=== PATIENT | female | born 1965 | race Two or more races ===

== ENCOUNTER 2016-09-19 22:28 | Inpatient (IN) | payer MEDICAID ==
[~2016-09-19] VITALS: Ht 165.1 cm; Wt 81.9 kg
[~2016-09-19 22:28] MED LIST: Atorvastatin Calcium PO; DOXY-216 PO; FURO20TA PO; Insulin Detemir SC; LIS10T PO
[2016-09-19 23:02] LABS: Basophils # (auto) 0.2 uL; Eosinophils # (auto) 0.1 uL; Eosinophils % (auto) 1.7 % (0.0-7.0); Hematocrit 33.8 % (36.0-46.0); Hemoglobin 11.5 g/dL (12.2-16.2); Lymphocytes # (auto) 1.5 uL; Lymphocytes % (auto) 19.7 % (10.0-50.0); Mean Corpuscular Hemoglobin 28.3 pg (28.0-32.0); Mean Corpuscular Hgb Conc. 33.9 g/dL (32.0-36.0); Mean Corpuscular Volume 83.3 fL (80.0-100.0); Mean Platelet Volume 7.4 fL (7.4-10.4); Monocytes # (auto) 0.6 uL; Monocytes % (auto) 8.1 % (0.0-12.0); Neutrophils # (auto) 5.4 uL; Neutrophils % (auto) 68.5 % (37.0-80.0); Platelet Count (auto) 318 10^3/uL (140-450); Red Cell Distribution Width 14.6 % (11.6-16.0); White Blood Cell 7.9 10^3/uL (4.4-10.8)
[2016-09-19 23:17] LABS: INR 1.05 (0.9-1.15); Partial Thromboplastin Time 28.5 sec (22.64-33.71); Prothrombin Time 10.8 sec (9.37-12.3)
[2016-09-19 23:23] LABS: Albumin 2.9 g/dL (3.4-5.0); Alkaline Phosphatase 132 U/L (45-117); Anion Gap 14 (5-15); Aspartate Aminotransferase 11 U/L (15-37); B-Type Natriuretic Peptide 20.08 pg/mL (0-100); BUN/Creatinine Ratio 19.1; Bilirubin, Total 0.3 mg/dL (0.2-1.0); Blood Urea Nitrogen 17 mg/dL (7-18); Calcium 8.7 mg/dL (8.5-10.1); Carbon Dioxide 25 mmol/L (21-32); Chloride 102 mmol/L (98-107); GFR African American 86 mL/min; GFR Non-African American 71 mL/min; Glucose 212 mg/dL (74-106); Magnesium 2.2 mg/dL (1.6-2.6); Sodium 141 mmol/L (136-145); Total Protein 7.2 g/dL (6.4-8.2)
[2016-09-19 23:26] LABS: Temperature: 22.4 C (20.0-25.0)
[2016-09-20] VITALS (7 sets, daily range): BP systolic 111–126; BP diastolic 58–70
[2016-09-20] MEDS ORDERED: MORPHINE SULFATE 4 MG/ML SYRG IM ONE (02:45)
[2016-09-20] MEDS ORDERED: cefTRIAXone 1GM/50ML D5W 50 ML IV ONE (02:45)
[2016-09-20] MEDS ORDERED: ONDANSETRON HCL 4 MG/2 ML VIAL IV ONE (02:45)
[2016-09-20] MEDS ORDERED: VANCOMYCIN 1GM/250ML D5W 250 ML IV ONE (02:45)
[2016-09-20] MEDS ORDERED: MORPHINE SULFATE 4 MG/ML SYRG ONE (03:21)
[2016-09-20] MEDS ORDERED: MORPHINE SULFATE 4 MG/ML SYRG IV ONE (03:45)
[2016-09-20] MEDS ORDERED: PROMETHAZINE HCL 25 MG/ML 1ML IV PRN (07:00)
[2016-09-20] MEDS ORDERED: OSELTAMIVIR 75 MG CAP PO ONE (07:00)
[2016-09-20] MEDS ORDERED: DEXTROSE (50%) 50ML SYRG IV PRN (07:00)
[2016-09-20] MEDS ORDERED: NITROGLYCERIN 0.4 MG SL TAB SL PRN (07:00)
[2016-09-20] MEDS ORDERED: TEMAZEPAM 15 MG CAP PO PRN (07:00)
[2016-09-20] MEDS ORDERED: ALBUTEROL SULF 2.5 MG/0.5ML(0.5%) NEB SOLN NEB PRN (07:00)
[2016-09-20] MEDS ORDERED: LACTULOSE 20Gm/30ML SOLN PO PRN (07:00)
[2016-09-20] MEDS ORDERED: ACETAMINOPHEN 500 MG TAB PO PRN (07:00)
[2016-09-20] MEDS ORDERED: HYDROcodone-ACET 5/325MG TAB PO PRN (07:00)
[2016-09-20] MEDS ORDERED: LORazepam 0.5 MG TAB PO PRN (07:00)
[2016-09-20] MEDS: ACCU-CHEK COMFORT CURVE STRIP VI SCH ×4 (07:49→22:20)
[2016-09-20] MEDS: InsuLIN REG 1unit/0.01ml Soln (100units/ml) SC SCH ×4 (07:50→22:21)
[2016-09-20] MEDS ORDERED: LEVOFLOXACIN 500MG 100 ML IV SCH (10:00)
[2016-09-20] MEDS: OSELTAMIVIR 75 MG CAP PO SCH ×2 (11:11→21:28)
[2016-09-20] MEDS: ENOXAPARIN SOD 40 MG/0.4 ML SYRINGE SC SCH (11:11)
[2016-09-20] MEDS: ASPirin 81 mg TAB PO SCH (11:11)
[2016-09-20] MEDS: FUROSEMIDE 20 MG TAB PO SCH (11:12)
[2016-09-20] MEDS: METOPROLOL TARTRATE 25 MG TAB PO SCH ×2 (11:12→22:00)
[2016-09-20] MEDS: LISINOPRIL 10 MG TAB PO SCH (11:12)
[2016-09-20] MEDS: NITROGLYCERIN 0.2MG/HR TOPICAL PATCH TD SCH (11:14)
[2016-09-20] MEDS: ALBUTEROL SULF 2.5 MG/0.5ML(0.5%) NEB SOLN NEB SCH ×2 (11:49→19:51)
[2016-09-20] MEDS: CLINDAMYCIN 600MG IV 50 ML IV SCH ×2 (14:29→22:22)
[2016-09-20] MEDS: SODIUM CHLOR 0.9% PF (SALINE LOCK) 10ML VIAL IV SCH ×2 (14:30→22:17)
[2016-09-20] MEDS: ATORVASTATIN 20 MG TAB PO SCH (21:27)
[2016-09-20] MEDS ORDERED: INSULIN DETEMIR SC SCH (22:00)
[2016-09-20] MEDS ORDERED: ATORVASTATIN CALCIUM LIPITOR PO SCH (22:00)
[2016-09-20] MEDS: INSULIN DETEMIR(LEVEMIR) 1unit/0.01ml Soln (100units/ml) SC SCH (22:20)
[2016-09-21] VITALS (7 sets, daily range): BP systolic 104–149; BP diastolic 57–81
[2016-09-21] MEDS: ALBUTEROL SULF 2.5 MG/0.5ML(0.5%) NEB SOLN NEB SCH ×4 (00:44→19:02)
[2016-09-21] MEDS: SODIUM CHLOR 0.9% PF (SALINE LOCK) 10ML VIAL IV SCH ×3 (04:58→22:24)
[2016-09-21] MEDS: CLINDAMYCIN 600MG IV 50 ML IV SCH ×3 (05:14→22:24)
[2016-09-21] MEDS: ACCU-CHEK COMFORT CURVE STRIP VI SCH ×4 (05:14→22:00)
[2016-09-21] MEDS: InsuLIN REG 1unit/0.01ml Soln (100units/ml) SC SCH ×4 (05:33→22:00)
[2016-09-21 05:41] LABS: Basophils # (auto) 0 uL; Basophils % (auto) 0.7 % (0.0-2.0); Eosinophils # (auto) 0.1 uL; Eosinophils % (auto) 1.7 % (0.0-7.0); Hematocrit 30.1 % (36.0-46.0); Lymphocytes # (auto) 1.8 uL; Lymphocytes % (auto) 32.6 % (10.0-50.0); Mean Corpuscular Hemoglobin 28.1 pg (28.0-32.0); Mean Corpuscular Hgb Conc. 33.1 g/dL (32.0-36.0); Mean Corpuscular Volume 84.7 fL (80.0-100.0); Mean Platelet Volume 7.4 fL (7.4-10.4); Monocytes # (auto) 0.5 uL; Monocytes % (auto) 8.9 % (0.0-12.0); Neutrophils % (auto) 56.1 % (37.0-80.0); Platelet Count (auto) 299 10^3/uL (140-450); Red Cell Distribution Width 14.5 % (11.6-16.0); White Blood Cell 5.4 10^3/uL (4.4-10.8)
[2016-09-21 06:18] LABS: Albumin 2.5 g/dL (3.4-5.0); BUN/Creatinine Ratio 21.4; Bilirubin, Total 0.2 mg/dL (0.2-1.0); Calcium 8.3 mg/dL (8.5-10.1); Total Protein 6.4 g/dL (6.4-8.2)
[2016-09-21] MEDS: cefTRIAXone 1GM/50ML D5W 50 ML IV SCH (09:16)
[2016-09-21] MEDS: OSELTAMIVIR 75 MG CAP PO SCH ×2 (09:17→22:25)
[2016-09-21] MEDS: LISINOPRIL 10 MG TAB PO SCH (09:17)
[2016-09-21] MEDS: FUROSEMIDE 20 MG TAB PO SCH (09:17)
[2016-09-21] MEDS: ENOXAPARIN SOD 40 MG/0.4 ML SYRINGE SC SCH (09:17)
[2016-09-21] MEDS: NITROGLYCERIN 0.2MG/HR TOPICAL PATCH TD SCH (09:18)
[2016-09-21] MEDS: METOPROLOL TARTRATE 25 MG TAB PO SCH ×2 (09:18→22:25)
[2016-09-21] MEDS: ASPirin 81 mg TAB PO SCH (09:18)
[2016-09-21] MEDS: PSEUDOEPHEDRINE HCL 30 MG TAB PO PRN ×2 (14:25→18:18)
[2016-09-21] MEDS: HYDROmorphone HCL 2 MG/ML VL IV PRN (20:29)
[2016-09-21] MEDS: INSULIN DETEMIR(LEVEMIR) 1unit/0.01ml Soln (100units/ml) SC SCH (22:00)
[2016-09-21] MEDS: ATORVASTATIN 20 MG TAB PO SCH (22:24)
[2016-09-22] VITALS (7 sets, daily range): BP systolic 103–128; BP diastolic 57–73
[2016-09-22] MEDS: ALBUTEROL SULF 2.5 MG/0.5ML(0.5%) NEB SOLN NEB SCH ×4 (00:55→20:27)
[2016-09-22] MEDS: PSEUDOEPHEDRINE HCL 30 MG TAB PO PRN (04:22)
[2016-09-22] MEDS: HYDROmorphone HCL 2 MG/ML VL IV PRN ×2 (04:22→19:36)
[2016-09-22 05:45] LABS: Basophils # (auto) 0.1 uL; Basophils % (auto) 0.5 % (0.0-2.0); Eosinophils # (auto) 0.1 uL; Hematocrit 31.8 % (36.0-46.0); Hemoglobin 10.6 g/dL (12.2-16.2); Lymphocytes # (auto) 2.5 uL; Lymphocytes % (auto) 23.7 % (10.0-50.0); Mean Corpuscular Hgb Conc. 33.4 g/dL (32.0-36.0); Mean Platelet Volume 7.5 fL (7.4-10.4); Monocytes # (auto) 0.5 uL; Monocytes % (auto) 4.4 % (0.0-12.0); Neutrophils # (auto) 7.5 uL; Neutrophils % (auto) 70.4 % (37.0-80.0); Platelet Count (auto) 315 10^3/uL (140-450); Red Cell Distribution Width 14.8 % (11.6-16.0); White Blood Cell 10.6 10^3/uL (4.4-10.8)
[2016-09-22 05:50] LABS: INR 1.08 (0.9-1.15); Prothrombin Time 11.1 sec (9.37-12.3)
[2016-09-22] MEDS: CLINDAMYCIN 600MG IV 50 ML IV SCH ×3 (06:00→23:21)
[2016-09-22] MEDS: SODIUM CHLOR 0.9% PF (SALINE LOCK) 10ML VIAL IV SCH ×3 (06:01→23:20)
[2016-09-22 06:02] LABS: BUN/Creatinine Ratio 27.8; Calcium 8.5 mg/dL (8.5-10.1); Magnesium 2.4 mg/dL (1.6-2.6); Potassium 4.1 mmol/L (3.5-5.1)
[2016-09-22] MEDS: ACCU-CHEK COMFORT CURVE STRIP VI SCH ×4 (06:50→23:43)
[2016-09-22] MEDS: InsuLIN REG 1unit/0.01ml Soln (100units/ml) SC SCH ×4 (06:55→22:00)
[2016-09-22] MEDS: cefTRIAXone 1GM/50ML D5W 50 ML IV SCH (09:00)
[2016-09-22] MEDS ORDERED: ceFAZolin 1GM VL ONE (10:23)
[2016-09-22] MEDS ORDERED: fentaNYL CITRATE 100 MCG/2 ML VL ONE (10:26)
[2016-09-22] MEDS ORDERED: MIDAZOLAM HCL 1MG/1ML-2 ML VIAL ONE (10:27)
[2016-09-22] MEDS ORDERED: PROPOFOL 10 MG/ML 20 ML IV ONE (10:27)
[2016-09-22] MEDS ORDERED: ONDANSETRON HCL 4 MG/2 ML VIAL IV ONE (10:45)
[2016-09-22] MEDS ORDERED: ePHEDrine SULFATE 50 MG/ML AMP IV PRN (10:45)
[2016-09-22] MEDS ORDERED: MIDAZOLAM HCL 1MG/1ML-2 ML VIAL IV PRN (10:45)
[2016-09-22] MEDS ORDERED: HYDROmorphone HCL 2 MG/ML VL IV PRN (10:45)
[2016-09-22] MEDS ORDERED: ACCU-CHEK COMFORT CURVE STRIP VI ONE (10:45)
[2016-09-22] MEDS ORDERED: LABETALOL HCL 5 MG/ML 4ML SYRINGE IV PRN (10:45)
[2016-09-22] MEDS ORDERED: hydrALAZINE HCL 20 MG/ML VL IV PRN (10:45)
[2016-09-22] MEDS ORDERED: fentaNYL CITRATE 100 MCG/2 ML VL IV ONE (11:00)
[2016-09-22] MEDS: ENOXAPARIN SOD 40 MG/0.4 ML SYRINGE SC SCH (12:23)
[2016-09-22] MEDS: ASPirin 81 mg TAB PO SCH (12:23)
[2016-09-22] MEDS: LISINOPRIL 10 MG TAB PO SCH (12:24)
[2016-09-22] MEDS: METOPROLOL TARTRATE 25 MG TAB PO SCH ×2 (12:24→23:19)
[2016-09-22] MEDS: FUROSEMIDE 20 MG TAB PO SCH (12:24)
[2016-09-22] MEDS: ATORVASTATIN 20 MG TAB PO SCH (23:20)
[2016-09-22] MEDS: INSULIN DETEMIR(LEVEMIR) 1unit/0.01ml Soln (100units/ml) SC SCH (23:42)
[2016-09-23] VITALS (7 sets, daily range): BP systolic 112–142; BP diastolic 61–78
[2016-09-23] MEDS: ALBUTEROL SULF 2.5 MG/0.5ML(0.5%) NEB SOLN NEB SCH ×4 (00:26→18:32)
[2016-09-23] MEDS: SODIUM CHLOR 0.9% PF (SALINE LOCK) 10ML VIAL IV SCH ×3 (05:48→22:17)
[2016-09-23] MEDS: CLINDAMYCIN 600MG IV 50 ML IV SCH ×3 (05:48→22:17)
[2016-09-23 05:58] LABS: Basophils # (auto) 0 uL; Basophils % (auto) 0.5 % (0.0-2.0); Eosinophils # (auto) 0.1 uL; Eosinophils % (auto) 1.6 % (0.0-7.0); Lymphocytes # (auto) 2.3 uL; Lymphocytes % (auto) 28.1 % (10.0-50.0); Mean Corpuscular Hemoglobin 28.1 pg (28.0-32.0); Mean Corpuscular Hgb Conc. 33.2 g/dL (32.0-36.0); Mean Corpuscular Volume 84.6 fL (80.0-100.0); Mean Platelet Volume 7.6 fL (7.4-10.4); Monocytes # (auto) 0.3 uL; Monocytes % (auto) 3.6 % (0.0-12.0); Neutrophils # (auto) 5.5 uL; Neutrophils % (auto) 66.2 % (37.0-80.0); Platelet Count (auto) 298 10^3/uL (140-450); Red Cell Distribution Width 14.9 % (11.6-16.0); White Blood Cell 8.4 10^3/uL (4.4-10.8)
[2016-09-23 06:15] LABS: BUN/Creatinine Ratio 27.8; Calcium 8.1 mg/dL (8.5-10.1); Potassium 4.5 mmol/L (3.5-5.1)
[2016-09-23] MEDS: InsuLIN REG 1unit/0.01ml Soln (100units/ml) SC SCH ×4 (06:46→22:30)
[2016-09-23] MEDS: ACCU-CHEK COMFORT CURVE STRIP VI SCH ×4 (06:46→22:19)
[2016-09-23] MEDS: cefTRIAXone 1GM/50ML D5W 50 ML IV SCH (08:55)
[2016-09-23] MEDS: ASPirin 81 mg TAB PO SCH (08:55)
[2016-09-23] MEDS: METOPROLOL TARTRATE 25 MG TAB PO SCH ×2 (08:55→22:18)
[2016-09-23] MEDS: ENOXAPARIN SOD 40 MG/0.4 ML SYRINGE SC SCH (08:56)
[2016-09-23] MEDS: LISINOPRIL 10 MG TAB PO SCH (08:56)
[2016-09-23] MEDS: FUROSEMIDE 20 MG TAB PO SCH (08:56)
[2016-09-23] MEDS: PSEUDOEPHEDRINE HCL 30 MG TAB PO PRN (09:06)
[2016-09-23] MEDS ORDERED: DOCUSATE SOD 100 MG CAP PO ONE (11:00)
[2016-09-23] MEDS: HYDROmorphone HCL 2 MG/ML VL IV PRN (12:47)
[2016-09-23] MEDS: DOCUSATE SOD 100 MG CAP PO SCH (22:00)
[2016-09-23] MEDS: ATORVASTATIN 20 MG TAB PO SCH (22:18)
[2016-09-23] MEDS: INSULIN DETEMIR(LEVEMIR) 1unit/0.01ml Soln (100units/ml) SC SCH (22:30)
[2016-09-24] MEDS: HYDROmorphone HCL 2 MG/ML VL IV PRN (01:03)
[2016-09-24 05:05] VITALS: BP 91/56
[2016-09-24] MEDS: CLINDAMYCIN 600MG IV 50 ML IV SCH ×2 (06:08→14:00)
[2016-09-24] MEDS: SODIUM CHLOR 0.9% PF (SALINE LOCK) 10ML VIAL IV SCH ×2 (06:08→14:00)
[2016-09-24] MEDS: ACCU-CHEK COMFORT CURVE STRIP VI SCH ×2 (06:25→11:30)
[2016-09-24] MEDS: InsuLIN REG 1unit/0.01ml Soln (100units/ml) SC SCH ×2 (06:25→11:30)
[2016-09-24 06:27] LABS: Hematocrit 30.4 % (36.0-46.0); Hemoglobin 10.3 g/dL (12.2-16.2)
[2016-09-24] MEDS: ALBUTEROL SULF 2.5 MG/0.5ML(0.5%) NEB SOLN NEB SCH ×2 (07:17→11:47)
[2016-09-24 08:00] VITALS: BP 104/60
[2016-09-24 09:00] VITALS: BP 104/60
[2016-09-24] MEDS: LISINOPRIL 10 MG TAB PO SCH (09:38)
[2016-09-24] MEDS: ENOXAPARIN SOD 40 MG/0.4 ML SYRINGE SC SCH (09:38)
[2016-09-24] MEDS: DOCUSATE SOD 100 MG CAP PO SCH (09:38)
[2016-09-24] MEDS: FUROSEMIDE 20 MG TAB PO SCH (09:39)
[2016-09-24] MEDS: ASPirin 81 mg TAB PO SCH (09:39)
[2016-09-24] MEDS: METOPROLOL TARTRATE 25 MG TAB PO SCH (09:39)
[2016-09-24] MEDS: cefTRIAXone 1GM/50ML D5W 50 ML IV SCH (09:49)
[2016-09-24 10:44] LABS: Temperature: 22.3 C (20.0-25.0)
[2016-09-24 11:42] VITALS: BP 137/68
[2016-09-24] MEDS ORDERED: CLIN1CAP4 PO (13:14)
[2016-09-24] MEDS ORDERED: SACC250C PO (13:15)
[2016-09-24 15:09] VITALS: BP 104/60
[2016-09-24 15:31] VITALS: BP 137/68
== END 2016-09-24 16:03 | disposition home health service (06) | DRG 312 ==
LOC: EDBD 22:28 → ER 22:28 → TELE-WESTW 22:29
PROVIDERS: ADMIT Internal Medicine; ATTEND Internal Medicine
PROC: 0HRMXK3 Replacement of Right Foot Skin with Nonautologous Tissue Substitute, Full Thickness, External Approach (ICD-10-PCS; 2016-09-22)
PROC: 0JBQ0ZZ Excision of Right Foot Subcutaneous Tissue and Fascia, Open Approach (ICD-10-PCS; principal; 2016-09-22 10:39)
DX: E11.69 Type 2 diabetes mellitus with other specified complication (principal); M86.9 Osteomyelitis, unspecified; N17.0 Acute kidney failure with tubular necrosis; E11.621 Type 2 diabetes mellitus with foot ulcer; E11.40 Type 2 diabetes mellitus with diabetic neuropathy, unspecified; L03.115 Cellulitis of right lower limb; J06.9 Acute upper respiratory infection, unspecified; E11.610 Type 2 diabetes mellitus with diabetic neuropathic arthropathy; F41.9 Anxiety disorder, unspecified; E78.5 Hyperlipidemia, unspecified; E66.9 Obesity, unspecified; R07.81 Pleurodynia; L97.529 Non-pressure chronic ulcer of other part of left foot with unspecified severity; J20.9 Acute bronchitis, unspecified; R10.9 Unspecified abdominal pain; D63.8 Anemia in other chronic diseases classified elsewhere; L97.519 Non-pressure chronic ulcer of other part of right foot with unspecified severity; I10 Essential (primary) hypertension; Z68.30 Body mass index [BMI] 30.0-30.9, adult; Z88.6 Allergy status to analgesic agent; Z79.899 Other long term (current) drug therapy; Z83.3 Family history of diabetes mellitus
CPT/HCPCS: 36415; 71010; 73700; 73718; 80048; 80053; 80061; 82270; 82550; 82607; 82746; 82962; 83036; 83540; 83550; 83735; 83880; 84443; 84484; 85014; 85018; 85025; 85379; 85610; 85652; 85730; 86141; 86850; 86900; 86901; 87070; 87075; 87086; 87205; 87400; 93005; 93926; 94640; 96365; 96367; 96375; G0434; J0690; J0696; J1815; J1956; J2250; J2405; J2704; J3490

== ENCOUNTER 2016-10-02 21:09 | Inpatient (IN) | payer MEDICAID ==
[~2016-10-02] VITALS: Ht 152.4 cm; Wt 55.4 kg
[~2016-10-02 21:09] MED LIST changes: +CLIN1CAP4 PO; -DOXY-216 PO; +SACC250C PO
[2016-10-02 22:25] LABS: Basophils # (auto) 0.1 uL; Basophils % (auto) 0.5 % (0.0-2.0); Eosinophils # (auto) 0.1 uL; Hematocrit 35.2 % (36.0-46.0); Hemoglobin 11.8 g/dL (12.2-16.2); Lymphocytes # (auto) 2.6 uL; Lymphocytes % (auto) 23.4 % (10.0-50.0); Mean Corpuscular Hemoglobin 28.1 pg (28.0-32.0); Mean Corpuscular Hgb Conc. 33.5 g/dL (32.0-36.0); Mean Corpuscular Volume 83.6 fL (80.0-100.0); Mean Platelet Volume 7.1 fL (7.4-10.4); Monocytes # (auto) 0.5 uL; Monocytes % (auto) 4.2 % (0.0-12.0); Neutrophils # (auto) 7.9 uL; Neutrophils % (auto) 70.9 % (37.0-80.0); Platelet Count (auto) 438 10^3/uL (140-450); Red Cell Distribution Width 14.6 % (11.6-16.0); White Blood Cell 11.1 10^3/uL (4.4-10.8)
[2016-10-02 22:35] LABS: Urine Bilirubin Negative (Negative); Urine Blood TRACE /uL (Negative); Urine Color Yellow (Yellow); Urine Glucose TRACE mg/dL (Normal); Urine Ketone Negative (Negative); Urine Nitrite Negative (Negative); Urine RBC 5 /hpf (0 - 4); Urine Squamous Epithelial Cell FEW /hpf (<5); Urine Urobilinogen Normal (Negative)
[2016-10-02 22:45] LABS: Albumin 3.1 g/dL (3.4-5.0); Bilirubin, Total 0.2 mg/dL (0.2-1.0); Calcium 8.8 mg/dL (8.5-10.1); Total Protein 7.5 g/dL (6.4-8.2)
[2016-10-02 23:02] LABS: INR 0.94 (0.9-1.15); Partial Thromboplastin Time 26.4 sec (22.64-33.71); Prothrombin Time 10.1 sec (9.37-12.3)
[2016-10-03] MEDS ORDERED: cefTRIAXone 1GM/50ML D5W 50 ML IV ONE (06:45)
[2016-10-03] MEDS ORDERED: SODIUM CHLORIDE 0.9% 1,000 ML IV ONE (06:45)
[2016-10-03] MEDS ORDERED: ONDANSETRON HCL 4 MG/2 ML VIAL IV ONE (08:30)
[2016-10-03] MEDS ORDERED: LORazepam 0.5 MG TAB PO PRN (11:15)
[2016-10-03] MEDS ORDERED: LACTULOSE 20Gm/30ML SOLN PO PRN (11:15)
[2016-10-03] MEDS ORDERED: ACETAMINOPHEN 500 MG TAB PO PRN (11:15)
[2016-10-03] MEDS ORDERED: PROMETHAZINE HCL 25 MG/ML 1ML IV PRN (11:15)
[2016-10-03] MEDS ORDERED: DEXTROSE (50%) 50ML SYRG IV PRN (11:15)
[2016-10-03] MEDS ORDERED: TEMAZEPAM 15 MG CAP PO PRN (11:15)
[2016-10-03] MEDS: InsuLIN REG 1unit/0.01ml Soln (100units/ml) SC SCH ×3 (11:30→22:06)
[2016-10-03] MEDS ORDERED: GAB300C PO (12:41)
[2016-10-03] MEDS ORDERED: [UNRECOGNIZED DRUG - CODE] PO (12:41)
[2016-10-03] MEDS ORDERED: INSLANTI SC (12:41)
[2016-10-03] MEDS ORDERED: POTA1TAB4 PO (12:41)
[2016-10-03] MEDS ORDERED: INSUINJ18 SC (12:41)
[2016-10-03] MEDS: ACCU-CHEK COMFORT CURVE STRIP VI SCH ×3 (12:53→22:05)
[2016-10-03] MEDS: HYDROcodone-ACET 5/325MG TAB PO PRN ×2 (12:58→20:02)
[2016-10-03] MEDS: ENOXAPARIN SOD 40 MG/0.4 ML SYRINGE SC SCH (12:58)
[2016-10-03] MEDS: CLINDAMYCIN 600MG IV 50 ML IV SCH ×2 (13:54→22:07)
[2016-10-03 17:00] VITALS: BP 180/87
[2016-10-03 22:00] VITALS: BP 124/68
[2016-10-04] MEDS: HYDROcodone-ACET 5/325MG TAB PO PRN ×3 (02:56→20:22)
[2016-10-04 05:00] VITALS: BP 104/59
[2016-10-04 05:13] LABS: Basophils # (auto) 0 uL; Basophils % (auto) 0.7 % (0.0-2.0); Eosinophils # (auto) 0.1 uL; Eosinophils % (auto) 1.6 % (0.0-7.0); Hematocrit 32.1 % (36.0-46.0); Hemoglobin 10.6 g/dL (12.2-16.2); Lymphocytes # (auto) 2.3 uL; Lymphocytes % (auto) 34.9 % (10.0-50.0); Mean Corpuscular Hemoglobin 27.9 pg (28.0-32.0); Mean Corpuscular Hgb Conc. 32.9 g/dL (32.0-36.0); Mean Corpuscular Volume 84.7 fL (80.0-100.0); Mean Platelet Volume 7.2 fL (7.4-10.4); Monocytes # (auto) 0.3 uL; Neutrophils # (auto) 3.8 uL; Neutrophils % (auto) 57.8 % (37.0-80.0); Platelet Count (auto) 381 10^3/uL (140-450); Red Cell Distribution Width 14.4 % (11.6-16.0); White Blood Cell 6.6 10^3/uL (4.4-10.8)
[2016-10-04] MEDS: InsuLIN REG 1unit/0.01ml Soln (100units/ml) SC SCH ×4 (06:19→22:45)
[2016-10-04] MEDS: ACCU-CHEK COMFORT CURVE STRIP VI SCH ×4 (06:19→22:03)
[2016-10-04] MEDS: CLINDAMYCIN 600MG IV 50 ML IV SCH ×3 (06:19→22:03)
[2016-10-04 08:00] VITALS: BP 124/67
[2016-10-04] MEDS: ENOXAPARIN SOD 40 MG/0.4 ML SYRINGE SC SCH (08:10)
[2016-10-04] MEDS ORDERED: ceFAZolin 1GM VL ONE (08:44)
[2016-10-04] MEDS ORDERED: BUPIVACAINE 0.75% INJ 10ML MPV SDV IJ ONE (08:44)
[2016-10-04 09:00] VITALS: BP 124/67
[2016-10-04] MEDS: cefTRIAXone 1GM/50ML D5W 50 ML IV SCH (09:56)
[2016-10-04] MEDS ORDERED: PROPOFOL 10 MG/ML 20 ML IV ONE (11:55)
[2016-10-04] MEDS ORDERED: MIDAZOLAM HCL 1MG/1ML-2 ML VIAL ONE (11:55)
[2016-10-04] MEDS ORDERED: fentaNYL CITRATE 100 MCG/2 ML VL ONE (11:55)
[2016-10-04] MEDS ORDERED: ONDANSETRON HCL 4 MG/2 ML VIAL ONE (11:55)
[2016-10-04] MEDS ORDERED: SODIUM CHLORIDE LOCK 20 ML ONE (11:55)
[2016-10-04] MEDS ORDERED: ceFAZolin 1GM/50ML D5W 50 ML IV ONE (12:13)
[2016-10-04] MEDS ORDERED: KETOROLAC TROMETH 30 MG/ML 1ML VIAL IV ONE ×2 (12:45→21:15)
[2016-10-04] MEDS ORDERED: ACCU-CHEK COMFORT CURVE STRIP VI ONE (12:45)
[2016-10-04] MEDS ORDERED: METOCLOPRAMIDE HCL 5MG/ml INJ 2ml VIAL IV ONE (12:45)
[2016-10-04] MEDS ORDERED: HYDROmorphone HCL 2 MG/ML VL IV PRN (12:45)
[2016-10-04 17:00] VITALS: BP 135/55
[2016-10-04] MEDS ORDERED: HYDROcodone-ACET 10/325MG TAB PO PRN (21:15)
[2016-10-04 22:00] VITALS: BP 141/62
[2016-10-05 05:30] VITALS: BP 108/46
[2016-10-05] MEDS: ACCU-CHEK COMFORT CURVE STRIP VI SCH ×3 (05:52→17:00)
[2016-10-05] MEDS: CLINDAMYCIN 600MG IV 50 ML IV SCH (05:52)
[2016-10-05] MEDS: InsuLIN REG 1unit/0.01ml Soln (100units/ml) SC SCH ×3 (06:22→17:00)
[2016-10-05] MEDS: cefTRIAXone 1GM/50ML D5W 50 ML IV SCH (08:51)
[2016-10-05 09:00] VITALS: BP 123/63
[2016-10-05] MEDS ORDERED: DOXY-216 PO (09:10)
[2016-10-05] MEDS ORDERED: DOXYCYCLINE 100 MG TAB/CAP PO SCH (10:00)
[2016-10-05] MEDS: ENOXAPARIN SOD 40 MG/0.4 ML SYRINGE SC SCH (10:02)
[2016-10-05 13:24] VITALS: BP 142/63
[2016-10-05 14:44] VITALS: BP 123/63
[2016-10-05 15:00] VITALS: BP 123/63
== END 2016-10-05 16:25 | disposition home or self-care (01) | DRG 361 ==
LOC: ER 21:09 → OVERFLOW 21:10 → TELE-E-ADS 10-03 12:18 → CENTRAL 10-03 15:44 → UNDODISIN 10-05 16:30
PROVIDERS: ADMIT Internal Medicine; ATTEND Internal Medicine
PROC: 0JBQ0ZZ Excision of Right Foot Subcutaneous Tissue and Fascia, Open Approach (ICD-10-PCS; 2016-10-04)
PROC: 0HRMXK3 Replacement of Right Foot Skin with Nonautologous Tissue Substitute, Full Thickness, External Approach (ICD-10-PCS; principal; 2016-10-04 12:25)
DX: E11.621 Type 2 diabetes mellitus with foot ulcer (principal); L97.519 Non-pressure chronic ulcer of other part of right foot with unspecified severity; E11.40 Type 2 diabetes mellitus with diabetic neuropathy, unspecified; L03.115 Cellulitis of right lower limb; I10 Essential (primary) hypertension; E78.5 Hyperlipidemia, unspecified; F41.9 Anxiety disorder, unspecified; D63.8 Anemia in other chronic diseases classified elsewhere; E66.9 Obesity, unspecified; Z68.23 Body mass index [BMI] 23.0-23.9, adult; E44.1 Mild protein-calorie malnutrition; M12.9 Arthropathy, unspecified; M81.0 Age-related osteoporosis without current pathological fracture; Z83.3 Family history of diabetes mellitus; Z85.3 Personal history of malignant neoplasm of breast; Z88.5 Allergy status to narcotic agent
CPT/HCPCS: 36415; 71010; 73630; 80053; 81001; 81025; 82962; 83036; 83735; 84443; 85025; 85610; 85652; 85730; 86850; 86900; 86901; 87070; 87075; 87077; 87081; 87186; 93005; 96365; 96375; J0690; J0696; J1815; J1885; J2250; J2405; J2704; J3490; Q4126

== ENCOUNTER 2016-11-20 22:52 | Inpatient (IN) | payer MEDICAID ==
[~2016-11-20] VITALS: Ht 152.4 cm; Wt 84.2 kg
[~2016-11-20 22:52] MED LIST changes: -CLIN1CAP4 PO; +DOXY-216 PO; +GAB300C PO; +INSLANTI SC; +INSUINJ18 SC; -Insulin Detemir SC; +POTA1TAB4 PO
[2016-11-20 23:49] LABS: Basophils # (auto) 0 uL; Basophils % (auto) 0.2 % (0.0-2.0); Eosinophils # (auto) 0.2 uL; Eosinophils % (auto) 1.7 % (0.0-7.0); Hematocrit 34.8 % (36.0-46.0); Hemoglobin 11.7 g/dL (12.2-16.2); Lymphocytes % (auto) 25.6 % (10.0-50.0); Mean Corpuscular Hemoglobin 28.7 pg (28.0-32.0); Mean Corpuscular Hgb Conc. 33.6 g/dL (32.0-36.0); Mean Corpuscular Volume 85.6 fL (80.0-100.0); Mean Platelet Volume 7.2 fL (7.4-10.4); Monocytes # (auto) 0.6 uL; Monocytes % (auto) 4.8 % (0.0-12.0); Neutrophils # (auto) 7.9 uL; Neutrophils % (auto) 67.7 % (37.0-80.0); Platelet Count (auto) 398 10^3/uL (140-450); Red Cell Distribution Width 12.7 % (11.6-16.0); White Blood Cell 11.7 10^3/uL (4.4-10.8)
[2016-11-20 23:58] LABS: Albumin 2.9 g/dL (3.4-5.0); BUN/Creatinine Ratio 26.9; Calcium 8.9 mg/dL (8.5-10.1); Potassium 4.5 mmol/L (3.5-5.1)
[2016-11-21 00:01] LABS: Bilirubin, Total 0.2 mg/dL (0.2-1.0); INR 0.94 (0.9-1.15); Partial Thromboplastin Time 27.8 sec (22.64-33.71); Prothrombin Time 10.2 sec (9.37-12.3); Total Protein 7.2 g/dL (6.4-8.2)
[2016-11-21] MEDS ORDERED: LISINOPRIL 10 MG TAB PO SCH (07:00)
[2016-11-21] MEDS ORDERED: DEXTROSE (50%) 50ML SYRG IV PRN (07:00)
[2016-11-21] MEDS ORDERED: TEMAZEPAM 15 MG CAP PO PRN (07:00)
[2016-11-21] MEDS ORDERED: ACETAMINOPHEN 325 MG TAB PO PRN (07:00)
[2016-11-21] MEDS ORDERED: ONDANSETRON HCL 4 MG/2 ML VIAL IV PRN (07:00)
[2016-11-21] MEDS ORDERED: cefTRIAXone 1GM/50ML D5W 50 ML IV ONE (07:00)
[2016-11-21] MEDS ORDERED: LISINOPRIL 10 MG TAB PO ONE (07:04)
[2016-11-21] MEDS: SODIUM CHLORIDE 0.9% 1,000 ML IV SCH ×2 (07:45→19:23)
[2016-11-21] MEDS ORDERED: fentaNYL CITRATE 100 MCG/2 ML VL ONE (08:10)
[2016-11-21] MEDS ORDERED: SODIUM CHLORIDE LOCK 20 ML ONE (08:10)
[2016-11-21] MEDS ORDERED: MIDAZOLAM HCL 1MG/1ML-2 ML VIAL ONE (08:10)
[2016-11-21] MEDS ORDERED: ONDANSETRON HCL 4 MG/2 ML VIAL ONE (08:10)
[2016-11-21] MEDS ORDERED: PROPOFOL 10 MG/ML 20 ML IV ONE (08:10)
[2016-11-21] MEDS ORDERED: ceFAZolin 1GM VL ONE (09:02)
[2016-11-21] MEDS ORDERED: ceFAZolin 1GM/50ML D5W 0 ML IV ONE (09:09)
[2016-11-21] MEDS ORDERED: METOCLOPRAMIDE HCL 5MG/ml INJ 2ml VIAL IV ONE (09:45)
[2016-11-21] MEDS ORDERED: ACCU-CHEK COMFORT CURVE STRIP VI ONE (09:45)
[2016-11-21] MEDS ORDERED: HYDROmorphone HCL 2 MG/ML VL IV PRN (09:45)
[2016-11-21] MEDS: FAMOTIDINE 20 MG TAB PO SCH ×2 (10:00→21:30)
[2016-11-21] MEDS: HYDROcodone-ACET 5/325MG TAB PO PRN ×2 (11:09→18:39)
[2016-11-21] MEDS: InsuLIN REG 1unit/0.01ml Soln (100units/ml) SC SCH ×3 (12:00→23:43)
[2016-11-21] MEDS: ACCU-CHEK COMFORT CURVE STRIP VI SCH ×3 (12:00→23:59)
[2016-11-21] MEDS: HYDROmorphone HCL 2 MG/ML VL IV PRN ×3 (12:04→23:43)
[2016-11-21 13:44] LABS: Basophils # (auto) 0.1 uL; Basophils % (auto) 0.7 % (0.0-2.0); Eosinophils # (auto) 0.2 uL; Eosinophils % (auto) 2.2 % (0.0-7.0); Hematocrit 32.8 % (36.0-46.0); Hemoglobin 11.1 g/dL (12.2-16.2); Lymphocytes # (auto) 2.9 uL; Lymphocytes % (auto) 32.5 % (10.0-50.0); Mean Corpuscular Hemoglobin 28.6 pg (28.0-32.0); Mean Corpuscular Hgb Conc. 33.7 g/dL (32.0-36.0); Mean Corpuscular Volume 84.9 fL (80.0-100.0); Mean Platelet Volume 6.9 fL (7.4-10.4); Monocytes # (auto) 0.5 uL; Monocytes % (auto) 5.5 % (0.0-12.0); Neutrophils # (auto) 5.3 uL; Neutrophils % (auto) 59.1 % (37.0-80.0); Platelet Count (auto) 379 10^3/uL (140-450)
[2016-11-21 14:06] LABS: BUN/Creatinine Ratio 31.1; Calcium 8.5 mg/dL (8.5-10.1); Potassium 4.3 mmol/L (3.5-5.1)
[2016-11-21 17:14] VITALS: BP 114/54
[2016-11-21 22:00] VITALS: BP 111/55
[2016-11-21] MEDS ORDERED: INSULIN DETEMIR(LEVEMIR) 1unit/0.01ml Soln (100units/ml) SC SCH (22:00)
[2016-11-22 05:00] VITALS: BP 93/58
[2016-11-22] MEDS: InsuLIN REG 1unit/0.01ml Soln (100units/ml) SC SCH (05:43)
[2016-11-22] MEDS: ACCU-CHEK COMFORT CURVE STRIP VI SCH (05:44)
[2016-11-22] MEDS: SODIUM CHLORIDE 0.9% 1,000 ML IV SCH (05:44)
[2016-11-22 08:29] VITALS: BP 117/61
[2016-11-22] MEDS: HYDROcodone-ACET 5/325MG TAB PO PRN (08:45)
[2016-11-22] MEDS: FAMOTIDINE 20 MG TAB PO SCH (08:45)
[2016-11-22] MEDS ORDERED: cefTRIAXone 1GM/50ML D5W 50 ML IV SCH (09:00)
[2016-11-22] MEDS ORDERED: LISINOPRIL 10 MG TAB PO SCH (10:00)
[2016-11-22] MEDS ORDERED: SACC250C PO (10:26)
[2016-11-22] MEDS ORDERED: DOXY-216 PO (10:26)
[2016-11-22] MEDS ORDERED: NOR5T PO (10:27)
[2016-11-22 12:07] VITALS: BP 131/66
== END 2016-11-22 13:00 | disposition home health service (06) | DRG 361 ==
LOC: ER 22:52 → TELE 22:53 → EAST 11-21 10:40
PROVIDERS: ADMIT Nurse Practitioner; ATTEND Internal Medicine
PROC: 0HRMXK3 Replacement of Right Foot Skin with Nonautologous Tissue Substitute, Full Thickness, External Approach (ICD-10-PCS; 2016-11-21)
PROC: 0JBQ0ZZ Excision of Right Foot Subcutaneous Tissue and Fascia, Open Approach (ICD-10-PCS; principal; 2016-11-21 09:13)
DX: E11.621 Type 2 diabetes mellitus with foot ulcer (principal); L97.519 Non-pressure chronic ulcer of other part of right foot with unspecified severity; E11.40 Type 2 diabetes mellitus with diabetic neuropathy, unspecified; E11.52 Type 2 diabetes mellitus with diabetic peripheral angiopathy with gangrene; E44.0 Moderate protein-calorie malnutrition; I10 Essential (primary) hypertension; E78.5 Hyperlipidemia, unspecified; F41.9 Anxiety disorder, unspecified; E66.9 Obesity, unspecified; D63.8 Anemia in other chronic diseases classified elsewhere; E11.65 Type 2 diabetes mellitus with hyperglycemia; Z83.3 Family history of diabetes mellitus; Z88.5 Allergy status to narcotic agent; Z80.9 Family history of malignant neoplasm, unspecified; Z68.36 Body mass index [BMI] 36.0-36.9, adult
CPT/HCPCS: 36415; 80048; 80053; 82962; 85025; 85610; 85730; 87070; 87075; 87205; 96365; J0690; J0696; J1815; J2250; J2405; J2704

== ENCOUNTER 2016-12-06 19:36 | Emergency (ER) | payer MEDICAID ==
[~2016-12-06] VITALS: Ht 152.4 cm; Wt 80.3 kg
[~2016-12-06 19:36] MED LIST changes: -GAB300C PO; +GABA-497 PO; +HYDR-4663 PO
[2016-12-06 20:13] VITALS: BP 131/57
[2016-12-06 21:09] LABS: Basophils # (auto) 0.1 uL; Basophils % (auto) 1.4 % (0.0-2.0); Eosinophils # (auto) 0.1 uL; Eosinophils % (auto) 0.9 % (0.0-7.0); Hemoglobin 11.9 g/dL (12.2-16.2); Lymphocytes # (auto) 2.9 uL; Lymphocytes % (auto) 26.4 % (10.0-50.0); Mean Corpuscular Hemoglobin 28.8 pg (28.0-32.0); Mean Corpuscular Hgb Conc. 33.8 g/dL (32.0-36.0); Mean Corpuscular Volume 85.3 fL (80.0-100.0); Mean Platelet Volume 7.9 fL (7.4-10.4); Monocytes # (auto) 0.5 uL; Monocytes % (auto) 4.4 % (0.0-12.0); Neutrophils # (auto) 7.3 uL; Neutrophils % (auto) 66.9 % (37.0-80.0); Platelet Count (auto) 356 10^3/uL (140-450); Red Cell Distribution Width 13.7 % (11.6-16.0); White Blood Cell 10.8 10^3/uL (4.4-10.8)
[2016-12-06 21:21] LABS: Urine Bilirubin Negative (Negative); Urine Blood TRACE /uL (Negative); Urine Color Yellow (Yellow); Urine Glucose Normal (Normal); Urine Ketone Negative (Negative); Urine Nitrite Negative (Negative); Urine RBC 1 /hpf (0 - 4); Urine Squamous Epithelial Cell FEW /hpf (<5); Urine Urobilinogen Normal (Negative)
[2016-12-06 21:34] LABS: Albumin 2.8 g/dL (3.4-5.0); BUN/Creatinine Ratio 15.8; Calcium 8.8 mg/dL (8.5-10.1)
[2016-12-06 21:45] LABS: Bilirubin, Total 0.1 mg/dL (0.2-1.0); Total Protein 7.1 g/dL (6.4-8.2)
== END 2016-12-07 03:16 | disposition left against medical advice (07) ==
LOC: ER 19:44
DX: R30.0 Dysuria (principal); M79.604 Pain in right leg; Z53.21 Procedure and treatment not carried out due to patient leaving prior to being seen by health care provider
CPT/HCPCS: 36415; 80053; 81001; 84702; 85025

== ENCOUNTER → 2017-01-01 | Emergency (ER) | payer MEDICAID ==
[~2017-01-01] MED LIST changes: +ATOR40TA52 PO; +FURO40TA4 PO; +LOSA100T27 PO
== END | disposition left against medical advice (07) ==
LOC: ER 23:50
DX: M79.671 Pain in right foot (principal); Z53.21 Procedure and treatment not carried out due to patient leaving prior to being seen by health care provider

== ENCOUNTER 2017-01-02 07:00 | Inpatient (IN) | payer MEDICAID ==
[~2017-01-02] VITALS: Ht 152.4 cm; Wt 81.6 kg
[~2017-01-02 07:00] MED LIST changes: -ATOR40TA52 PO; -FURO40TA4 PO; -LOSA100T27 PO
[2017-01-02 07:58] LABS: Basophils # (auto) 0.1 uL; Basophils % (auto) 0.6 % (0.0-2.0); CONDITION Y; Eosinophils # (auto) 0.1 uL; Eosinophils % (auto) 1.2 % (0.0-7.0); Hematocrit 35.1 % (36.0-46.0); Hemoglobin 11.8 g/dL (12.2-16.2); Lymphocytes # (auto) 2.5 uL; Lymphocytes % (auto) 26.6 % (10.0-50.0); Mean Corpuscular Hemoglobin 28.8 pg (28.0-32.0); Mean Corpuscular Hgb Conc. 33.7 g/dL (32.0-36.0); Mean Corpuscular Volume 85.6 fL (80.0-100.0); Mean Platelet Volume 7.5 fL (7.4-10.4); Monocytes # (auto) 0.4 uL; Monocytes % (auto) 3.7 % (0.0-12.0); Neutrophils # (auto) 6.5 uL; Neutrophils % (auto) 67.9 % (37.0-80.0); Platelet Count (auto) 396 10^3/uL (140-450); Red Cell Distribution Width 14.1 % (11.6-16.0); White Blood Cell 9.6 10^3/uL (4.4-10.8)
[2017-01-02 08:07] LABS: Albumin 2.8 g/dL (3.4-5.0); Calcium 8.9 mg/dL (8.5-10.1); Potassium 4.5 mmol/L (3.5-5.1)
[2017-01-02 08:10] LABS: Bilirubin, Total 0.2 mg/dL (0.2-1.0); INR 0.98 (0.9-1.15); Partial Thromboplastin Time 27.8 sec (22.64-33.71); Prothrombin Time 10.7 sec (9.37-12.3); Total Protein 7.1 g/dL (6.4-8.2)
[2017-01-02] MEDS ORDERED: SODIUM CHLORIDE 0.9% 1,000 ML IV ONE (09:42)
[2017-01-02] MEDS ORDERED: cefTRIAXone 1GM/50ML D5W 50 ML IV ONE ×2 (10:45→13:15)
[2017-01-02] MEDS ORDERED: TETANUS-DIPTH-ACEL PERTUSSIS 0.5ML SYRG IM ONE (10:45)
[2017-01-02 11:13] LABS: Urine Bilirubin Negative (Negative); Urine Blood TRACE /uL (Negative); Urine Color Yellow (Yellow); Urine Glucose Normal (Normal); Urine Ketone Negative (Negative); Urine Nitrite POSITIVE (Negative); Urine RBC <1 /hpf (0 - 4); Urine Squamous Epithelial Cell FEW /hpf (<5); Urine Urobilinogen Normal (Negative); Urine pH 5.5 (5.0-8.0)
[2017-01-02] MEDS ORDERED: NALBUPHINE HCL 10 MG/1ml INJECTION IV ONE (11:15)
[2017-01-02] MEDS ORDERED: MORPHINE SULF INJ 2 MG/ML SYRINGE 1ML IV PRN (13:00)
[2017-01-02] MEDS ORDERED: ACETAMINOPHEN 500 MG TAB PO PRN (13:00)
[2017-01-02] MEDS ORDERED: TEMAZEPAM 15 MG CAP PO PRN (13:00)
[2017-01-02] MEDS ORDERED: PROMETHAZINE HCL 25 MG/ML 1ML IV PRN (13:00)
[2017-01-02] MEDS ORDERED: LORazepam 0.5 MG TAB PO PRN (13:00)
[2017-01-02] MEDS: SODIUM CHLORIDE 0.9% 1,000 ML IV SCH ×2 (13:07→23:03)
[2017-01-02] MEDS: CLINDAMYCIN 600MG IV 50 ML IV SCH ×2 (14:14→22:00)
[2017-01-02] MEDS ORDERED: ATOR40TA52 PO (15:53)
[2017-01-02] MEDS ORDERED: GABA-497 PO (15:53)
[2017-01-02] MEDS ORDERED: FURO40TA4 PO (15:53)
[2017-01-02] MEDS ORDERED: LOSA100T27 PO (15:53)
[2017-01-02 18:20] VITALS: BP 117/61
[2017-01-02 18:52] VITALS: BP 117/61
[2017-01-02] MEDS: ACCU-CHEK COMFORT CURVE STRIP VI SCH ×2 (19:36→22:00)
[2017-01-02] MEDS: InsuLIN REG 1unit/0.01ml Soln (100units/ml) SC SCH ×2 (19:37→23:03)
[2017-01-02 22:41] VITALS: BP 138/63
[2017-01-03] MEDS: HYDROcodone-ACET 5/325MG TAB PO PRN (01:35)
[2017-01-03 05:30] VITALS: BP 138/62
[2017-01-03] MEDS: CLINDAMYCIN 600MG IV 50 ML IV SCH ×3 (06:04→22:20)
[2017-01-03] MEDS: InsuLIN REG 1unit/0.01ml Soln (100units/ml) SC SCH ×4 (06:29→22:21)
[2017-01-03] MEDS: ACCU-CHEK COMFORT CURVE STRIP VI SCH ×4 (06:29→22:21)
[2017-01-03 07:09] LABS: Albumin 2.5 g/dL (3.4-5.0); BUN/Creatinine Ratio 31.1; Bilirubin, Total 0.2 mg/dL (0.2-1.0); Calcium 8.2 mg/dL (8.5-10.1); Potassium 4.3 mmol/L (3.5-5.1); Total Protein 6.1 g/dL (6.4-8.2)
[2017-01-03 08:00] VITALS: BP 119/67
[2017-01-03 08:13] VITALS: BP 119/67
[2017-01-03] MEDS: SODIUM CHLORIDE 0.9% 1,000 ML IV SCH ×2 (09:18→18:51)
[2017-01-03] MEDS: cefTRIAXone 1GM/50ML D5W 50 ML IV SCH (09:18)
[2017-01-03] MEDS ORDERED: ceFAZolin 1GM/50ML D5W 50 ML IV ONE (11:16)
[2017-01-03] MEDS ORDERED: LABETALOL HCL 5 MG/ML 4ML SYRINGE IV PRN ×2 (12:45→13:45)
[2017-01-03] MEDS ORDERED: ePHEDrine SULFATE 50 MG/ML AMP IV PRN ×2 (12:45→13:45)
[2017-01-03] MEDS ORDERED: ONDANSETRON HCL 4 MG/2 ML VIAL IV ONE ×2 (12:45→13:45)
[2017-01-03] MEDS ORDERED: DEXAMETHASONE SOD PHOS 10MG/1ML VIAL INJ IV ONE (12:45)
[2017-01-03] MEDS ORDERED: MIDAZOLAM HCL 1MG/1ML-2 ML VIAL IV PRN ×2 (12:45→13:45)
[2017-01-03] MEDS ORDERED: HYDROmorphone HCL 2 MG/ML VL IV PRN ×2 (12:45→13:45)
[2017-01-03] MEDS ORDERED: KETOROLAC TROMETH 30 MG/ML 1ML VIAL IV ONE ×2 (12:45→13:45)
[2017-01-03] MEDS ORDERED: BUPIVACAINE 0.25% INJ 50ML VIAL ONE (12:50)
[2017-01-03] MEDS ORDERED: BACITRACIN TOP OINT 1 UD PKG TOP ONE (12:50)
[2017-01-03] MEDS ORDERED: fentaNYL CITRATE 100 MCG/2 ML VL ONE (12:52)
[2017-01-03] MEDS ORDERED: MIDAZOLAM HCL 1MG/1ML-2 ML VIAL ONE (12:52)
[2017-01-03] MEDS ORDERED: PROPOFOL 10 MG/ML 20 ML IV ONE (12:59)
[2017-01-03 13:00] VITALS: BP 128/72
[2017-01-03 16:33] VITALS: BP 132/70
[2017-01-03 22:00] VITALS: BP 144/69
[2017-01-03] MEDS: MORPHINE SULFATE 4 MG/ML SYRG IV PRN (22:31)
[2017-01-04] MEDS: MORPHINE SULFATE 4 MG/ML SYRG IV PRN ×2 (02:35→11:40)
[2017-01-04] MEDS: SODIUM CHLORIDE 0.9% 1,000 ML IV SCH ×2 (04:56→17:15)
[2017-01-04] MEDS: CLINDAMYCIN 600MG IV 50 ML IV SCH ×3 (05:42→22:26)
[2017-01-04 05:45] VITALS: BP 131/70
[2017-01-04] MEDS: ACCU-CHEK COMFORT CURVE STRIP VI SCH ×4 (06:31→22:30)
[2017-01-04] MEDS: InsuLIN REG 1unit/0.01ml Soln (100units/ml) SC SCH ×4 (06:31→22:27)
[2017-01-04 08:23] VITALS: BP 129/63
[2017-01-04] MEDS: cefTRIAXone 1GM/50ML D5W 50 ML IV SCH (10:06)
[2017-01-04 11:48] VITALS: BP 152/78
[2017-01-04] MEDS: HYDROcodone-ACET 5/325MG TAB PO PRN ×2 (14:22→20:19)
[2017-01-04 16:43] VITALS: BP 137/64
[2017-01-04 22:00] VITALS: BP 128/63
[2017-01-05] MEDS: SODIUM CHLORIDE 0.9% 1,000 ML IV SCH ×2 (00:56→08:42)
[2017-01-05] MEDS: InsuLIN REG 1unit/0.01ml Soln (100units/ml) SC SCH ×2 (05:18→11:33)
[2017-01-05] MEDS: ACCU-CHEK COMFORT CURVE STRIP VI SCH ×2 (05:18→11:26)
[2017-01-05] MEDS: CLINDAMYCIN 600MG IV 50 ML IV SCH ×2 (05:24→13:47)
[2017-01-05 05:32] VITALS: BP 132/70
[2017-01-05] MEDS: cefTRIAXone 1GM/50ML D5W 50 ML IV SCH (08:39)
[2017-01-05 09:00] VITALS: BP 137/77
[2017-01-05 12:21] VITALS: BP 131/82
[2017-01-05 12:40] VITALS: BP 131/82
== END 2017-01-05 13:47 | disposition home or self-care (01) | DRG 361 ==
LOC: ER 07:00 → OVERFLOW 07:01 → WEST WING 18:11
PROVIDERS: ADMIT Internal Medicine; ATTEND Internal Medicine
PROC: 0HRMXK3 Replacement of Right Foot Skin with Nonautologous Tissue Substitute, Full Thickness, External Approach (ICD-10-PCS; 2017-01-03)
PROC: 0JBQ0ZZ Excision of Right Foot Subcutaneous Tissue and Fascia, Open Approach (ICD-10-PCS; principal; 2017-01-03 13:29)
DX: L03.115 Cellulitis of right lower limb (principal); E11.42 Type 2 diabetes mellitus with diabetic polyneuropathy; E44.0 Moderate protein-calorie malnutrition; I50.9 Heart failure, unspecified; I11.0 Hypertensive heart disease with heart failure; E11.621 Type 2 diabetes mellitus with foot ulcer; L97.519 Non-pressure chronic ulcer of other part of right foot with unspecified severity; E11.610 Type 2 diabetes mellitus with diabetic neuropathic arthropathy; F32.9 Major depressive disorder, single episode, unspecified; F41.9 Anxiety disorder, unspecified; D63.8 Anemia in other chronic diseases classified elsewhere; B95.2 Enterococcus as the cause of diseases classified elsewhere; B96.20 Unspecified Escherichia coli [E. coli] as the cause of diseases classified elsewhere; N39.0 Urinary tract infection, site not specified; Z68.35 Body mass index [BMI] 35.0-35.9, adult; Z88.5 Allergy status to narcotic agent; Z90.710 Acquired absence of both cervix and uterus; Z83.3 Family history of diabetes mellitus; Z80.9 Family history of malignant neoplasm, unspecified; Z23 Encounter for immunization
CPT/HCPCS: 36415; 71010; 73630; 80053; 80061; 81001; 82962; 83735; 84443; 84702; 85025; 85610; 85652; 85730; 87040; 87070; 87075; 87086; 87088; 87186; 90715; 96361; 96365; 96372; 96375; J0690; J0696; J1100; J1815; J2250; J2704; J3490

== ENCOUNTER 2017-07-21 13:09 | Inpatient (IN) | payer SELFPAY ==
[~2017-07-21] VITALS: Ht 152.4 cm; Wt 78.8 kg
[~2017-07-21 13:09] MED LIST changes: +ATOR40TA52 PO; -Atorvastatin Calcium PO; -DOXY-216 PO; -FURO20TA PO; +FURO40TA4 PO; -GABA-497 PO; +GABA300C10 PO; -HYDR-4663 PO; +HYDR-4683 PO; +LOSA100T27 PO; -POTA1TAB4 PO
[2017-07-21 14:08] LABS: Urine Bacteria None Seen /hpf (None Seen)
[2017-07-21 14:34] LABS: Basophils # (auto) 0.1 uL; Eosinophils # (auto) 0 uL; Eosinophils % (auto) 0.2 % (0.0-7.0); Hematocrit 34.8 % (36.0-46.0); Hemoglobin 11.2 g/dL (12.2-16.2); Mean Corpuscular Hemoglobin 27.8 pg (28.0-32.0); Mean Corpuscular Hgb Conc. 32.2 g/dL (32.0-36.0); Mean Corpuscular Volume 86.2 fL (80.0-100.0); Monocytes # (auto) 0.2 uL; Neutrophils % (auto) 88.8 % (37.0-80.0); Platelet Count (auto) 322 10^3/uL (140-450); Red Blood Cells 4.03 10^6/uL (4.0-5.20); Red Cell Distribution Width 14.4 % (11.8-14.3); White Blood Cell 12.4 10^3/uL (4.4-10.8)
[2017-07-21 14:43] LABS: Lactic Acid w/Reflex 3.7 mmol/L (0.4-2.0)
[2017-07-21 14:53] LABS: Urine Specific Gravity 1.013 (1.001-1.035)
[2017-07-21 14:54] LABS: Urine Blood Trace /uL (Negative)
[2017-07-21 14:55] LABS: Alanine Aminotransferase 22 U/L (13-56); Albumin 2.9 g/dL (3.4-5.0); Alkaline Phosphatase 126 U/L (45-117); Anion Gap 9 (5-15); Aspartate Aminotransferase 12 U/L (15-37); BUN/Creatinine Ratio 21.4; Bilirubin, Total 0.2 mg/dL (0.2-1.0); Blood Urea Nitrogen 21 mg/dL (7-18); Calcium 8.2 mg/dL (8.5-10.1); Carbon Dioxide 26 mmol/L (21-32); Chloride 105 mmol/L (98-107); GFR African American 77 mL/min; GFR Non-African American 64 mL/min; Potassium 4.2 mmol/L (3.5-5.1); Sodium 140 mmol/L (136-145)
[2017-07-21 14:56] LABS: Urine WBC 1 /hpf (0 - 5)
[2017-07-21 15:05] LABS: Glucose 440 mg/dL (74-106)
[2017-07-21] MEDS ORDERED: cefTRIAXone 1GM/10ml IVPUSH 10 ML IV ONE ×2 (15:15→16:45)
[2017-07-21] MEDS ORDERED: InsuLIN REG 1unit/0.01ml Soln (100units/ml) IV ONE (15:15)
[2017-07-21] MEDS ORDERED: ASPirin-EC 81 mg tab PO ONE (16:15)
[2017-07-21] MEDS ORDERED: ALUM & MAG HYDROX-SIMETH LIQ(MAALOX) 30 ML PO PRN (16:45)
[2017-07-21] MEDS ORDERED: ALBUTEROL SULF 2.5 MG/0.5ML(0.5%) NEB SOLN NEB PRN (16:45)
[2017-07-21] MEDS ORDERED: HYDROcodone-ACET 5/325MG TAB PO PRN (16:45)
[2017-07-21] MEDS ORDERED: METOCLOPRAMIDE HCL 5MG/ml INJ 2ml VIAL IV PRN (16:45)
[2017-07-21] MEDS ORDERED: DEXTROSE (50%) 50ML SYRG IV PRN (16:45)
[2017-07-21] MEDS ORDERED: NITROGLYCERIN 0.4 MG SL TAB SL PRN (16:45)
[2017-07-21] MEDS ORDERED: TEMAZEPAM 15 MG CAP PO PRN (16:45)
[2017-07-21] MEDS ORDERED: MORPHINE SULF INJ 2 MG/ML SYRINGE 1ML IV PRN ×2 (16:45)
[2017-07-21] MEDS ORDERED: DOCUSATE SOD 100 MG CAP PO PRN (16:45)
[2017-07-21] MEDS ORDERED: ONDANSETRON HCL 4 MG/2 ML VIAL IV PRN (16:45)
[2017-07-21] MEDS ORDERED: LORazepam 0.5 MG TAB PO PRN (16:45)
[2017-07-21] MEDS ORDERED: ACETAMINOPHEN 325 MG TAB PO PRN (16:45)
[2017-07-21] MEDS ORDERED: SODIUM CHLORIDE 0.9% 1,000 ML IV ONE (17:00)
[2017-07-21] MEDS: InsuLIN REG 1unit/0.01ml Soln (100units/ml) SC SCH (17:15)
[2017-07-21] MEDS: ACCU-CHEK COMFORT CURVE STRIP VI SCH ×2 (17:15→23:14)
[2017-07-21] MEDS: INSULIN 70/30 1unit/0.01ml Susp (100units/ml) SC SCH (17:20)
[2017-07-21] MEDS ORDERED: INSULIN DETEMIR(LEVEMIR) 1unit/0.01ml Soln (100units/ml) SC SCH (18:00)
[2017-07-21 18:03] VITALS: BP 168/94
[2017-07-21] MEDS: FUROSEMIDE 40 MG/4 ML VIAL IV SCH (19:45)
[2017-07-21] MEDS ORDERED: InsuLIN REG 1unit/0.01ml Soln (100units/ml) SC SCH (22:00)
[2017-07-21] MEDS ORDERED: ATORVASTATIN 20 MG TAB PO SCH (22:00)
[2017-07-21 23:30] VITALS: BP 160/66
[2017-07-22 05:33] VITALS: BP 147/68
[2017-07-22] MEDS: ACCU-CHEK COMFORT CURVE STRIP VI SCH ×3 (06:00→17:00)
[2017-07-22] MEDS: InsuLIN REG 1unit/0.01ml Soln (100units/ml) SC SCH ×3 (06:00→17:00)
[2017-07-22] MEDS: INSULIN 70/30 1unit/0.01ml Susp (100units/ml) SC SCH ×3 (06:01→17:00)
[2017-07-22 07:18] LABS: Basophils # (auto) 0 uL; Basophils % (auto) 0.2 % (0.0-2.0); Eosinophils # (auto) 0 uL; Hematocrit 33.7 % (36.0-46.0); Hemoglobin 10.9 g/dL (12.2-16.2); Lymphocytes # (auto) 1.7 uL; Lymphocytes % (auto) 13.3 % (10.0-50.0); Mean Corpuscular Hemoglobin 27.9 pg (28.0-32.0); Mean Corpuscular Hgb Conc. 32.5 g/dL (32.0-36.0); Mean Corpuscular Volume 85.8 fL (80.0-100.0); Monocytes # (auto) 0.5 uL; Monocytes % (auto) 4.2 % (0.0-12.0); Neutrophils # (auto) 10.4 uL; Neutrophils % (auto) 82.3 % (37.0-80.0); Platelet Count (auto) 341 10^3/uL (140-450); Red Blood Cells 3.93 10^6/uL (4.0-5.20); Red Cell Distribution Width 14.3 % (11.8-14.3); White Blood Cell 12.7 10^3/uL (4.4-10.8)
[2017-07-22 07:40] LABS: Albumin 2.5 g/dL (3.4-5.0); BUN/Creatinine Ratio 36.1; Bilirubin, Total 0.2 mg/dL (0.2-1.0); Calcium 8.3 mg/dL (8.5-10.1); Total Protein 6.4 g/dL (6.4-8.2)
[2017-07-22 09:00] VITALS: BP 149/70
[2017-07-22] MEDS ORDERED: cefTRIAXone 1GM/10ml IVPUSH 10 ML IV SCH (09:00)
[2017-07-22] MEDS: FUROSEMIDE 40 MG/4 ML VIAL IV SCH (09:22)
[2017-07-22] MEDS ORDERED: LOSARTAN POTASSIUM 50 MG TAB PO SCH (10:00)
[2017-07-22] MEDS ORDERED: LISINOPRIL 10 MG TAB PO SCH (10:00)
[2017-07-22] MEDS ORDERED: AZIT500T4 PO (10:03)
[2017-07-22] MEDS ORDERED: HYDR-4683 PO (10:03)
[2017-07-22 14:24] VITALS: BP 149/70
== END 2017-07-22 17:00 | disposition home or self-care (01) | DRG 193 ==
LOC: ER 13:09 → EDBD 13:09 → OVERFLOW 13:10 → CENTRAL 18:33 → TELE-CENTR 07-22 06:21
PROVIDERS: ADMIT Internal Medicine; ATTEND Internal Medicine
DX: J18.9 Pneumonia, unspecified organism (principal); E43 Unspecified severe protein-calorie malnutrition; I11.0 Hypertensive heart disease with heart failure; I50.9 Heart failure, unspecified; E10.65 Type 1 diabetes mellitus with hyperglycemia; E66.9 Obesity, unspecified; Z68.33 Body mass index [BMI] 33.0-33.9, adult; E78.5 Hyperlipidemia, unspecified; F32.9 Major depressive disorder, single episode, unspecified; F41.9 Anxiety disorder, unspecified; Z79.4 Long term (current) use of insulin; Z83.3 Family history of diabetes mellitus; Z85.42 Personal history of malignant neoplasm of other parts of uterus; Z90.710 Acquired absence of both cervix and uterus; Z88.5 Allergy status to narcotic agent
CPT/HCPCS: 36415; 71045; 80053; 81001; 82962; 83605; 83880; 84484; 85025; 87040; 93005; 96372; 96374; 96375; J1815

== ENCOUNTER 2017-11-15 09:48 | Inpatient (IN) | payer MEDICAID ==
[~2017-11-15] VITALS: Ht 152.4 cm; Wt 92.6 kg
[~2017-11-15 09:48] MED LIST changes: +AZIT500T4 PO
[2017-11-15 10:22] LABS: Urine WBC None Seen /hpf (0 - 5)
[2017-11-15 10:33] LABS: Urine Bacteria MOD /hpf (None Seen); Urine Blood Negative /uL (Negative); Urine Specific Gravity 1.006 (1.001-1.035)
[2017-11-15 10:55] LABS: Basophils # (auto) 0.1 uL; Eosinophils # (auto) 0.1 uL; Eosinophils % (auto) 1.2 % (0.0-7.0); Hematocrit 38.1 % (36.0-46.0); Hemoglobin 12.7 g/dL (12.2-16.2); Lymphocytes # (auto) 2.4 uL; Lymphocytes % (auto) 24.9 % (10.0-50.0); Mean Corpuscular Hemoglobin 29.2 pg (28.0-32.0); Mean Corpuscular Hgb Conc. 33.3 g/dL (32.0-36.0); Mean Corpuscular Volume 87.7 fL (80.0-100.0); Monocytes # (auto) 0.3 uL; Monocytes % (auto) 2.8 % (0.0-12.0); Neutrophils # (auto) 6.7 uL; Neutrophils % (auto) 70.1 % (37.0-80.0); Platelet Count (auto) 353 10^3/uL (140-450); Red Blood Cells 4.34 10^6/uL (4.0-5.20); Red Cell Distribution Width 14.3 % (11.8-14.3); White Blood Cell 9.5 10^3/uL (4.4-10.8)
[2017-11-15 11:11] LABS: Albumin 2.9 g/dL (3.4-5.0); BUN/Creatinine Ratio 32.1
[2017-11-15 11:13] LABS: Bilirubin, Total 0.2 mg/dL (0.2-1.0); Total Protein 7.5 g/dL (6.4-8.2)
[2017-11-15] MEDS ORDERED: SODIUM CHLORIDE 0.9% 1,000 ML IV ONE (12:50)
[2017-11-15] MEDS ORDERED: KETOROLAC TROMETH 30 MG/ML 1ML VIAL IV ONE (13:00)
[2017-11-15] MEDS ORDERED: DEXTROSE 50% SYRINGE 50 ML IV ONE (13:20)
[2017-11-15] MEDS ORDERED: DEXTROSE (50%) 50ML SYRG IV ONE (14:00)
[2017-11-15] MEDS ORDERED: DEXTROSE (50%) 50ML SYRG IV PRN (15:45)
[2017-11-15] MEDS ORDERED: ACETAMINOPHEN 500 MG TAB PO PRN (15:45)
[2017-11-15] MEDS ORDERED: PROMETHAZINE HCL 25 MG/ML 1ML IV PRN (15:45)
[2017-11-15] MEDS ORDERED: TEMAZEPAM 15 MG CAP PO PRN (15:45)
[2017-11-15] MEDS ORDERED: LORazepam 0.5 MG TAB PO PRN (15:45)
[2017-11-15] MEDS ORDERED: cefTRIAXone 1GM/10ml IVPUSH 10 ML IV ONE (15:45)
[2017-11-15] MEDS ORDERED: NITROGLYCERIN 0.4 MG SL TAB SL PRN (15:45)
[2017-11-15 16:08] LABS: Amylase 62 U/L (25-115); Lipase 255 U/L (73-393)
[2017-11-15] MEDS: ACCU-CHEK COMFORT CURVE STRIP VI SCH ×3 (18:09→23:51)
[2017-11-15 20:00] VITALS: BP 162/74
[2017-11-15] MEDS: HYDROmorphone HCL 2 MG/ML VL IV PRN (20:38)
[2017-11-15] MEDS: GABAPENTIN 300 MG CAP PO SCH (21:58)
[2017-11-15] MEDS: ATORVASTATIN 20 MG TAB PO SCH (21:58)
[2017-11-15] MEDS: FAMOTIDINE 20 MG TAB PO SCH (21:58)
[2017-11-15 22:28] VITALS: BP 162/74
[2017-11-16] MEDS: ACCU-CHEK COMFORT CURVE STRIP VI SCH ×5 (04:17→21:41)
[2017-11-16 05:17] VITALS: BP 109/53
[2017-11-16] MEDS: HYDROmorphone HCL 2 MG/ML VL IV PRN (06:01)
[2017-11-16] MEDS: GABAPENTIN 300 MG CAP PO SCH ×3 (06:01→21:40)
[2017-11-16 06:48] LABS: Potassium 4.2 mmol/L (3.5-5.1)
[2017-11-16 06:57] LABS: Albumin 2.5 g/dL (3.4-5.0); Bilirubin, Total 0.2 mg/dL (0.2-1.0); Calcium 8.6 mg/dL (8.5-10.1); Total Protein 6.7 g/dL (6.4-8.2)
[2017-11-16 08:00] VITALS: BP 127/68
[2017-11-16 08:30] VITALS: BP 127/68
[2017-11-16] MEDS: cefTRIAXone 1GM/10ml IVPUSH 10 ML IV SCH (08:44)
[2017-11-16] MEDS: LISINOPRIL 10 MG TAB PO SCH (09:54)
[2017-11-16] MEDS: FAMOTIDINE 20 MG TAB PO SCH ×2 (09:54→21:41)
[2017-11-16] MEDS ORDERED: ENOXAPARIN SOD 40 MG/0.4 ML SYRINGE SC SCH (10:00)
[2017-11-16] MEDS ORDERED: PANTOPRAZOLE 40 MG TAB PO SCH (10:00)
[2017-11-16] MEDS ORDERED: PATIENTS OWN MEDICATION (Losartan Potassium 100 MG) PO SCH (10:00)
[2017-11-16] MEDS ORDERED: DEXTROSE (50%) 50ML SYRG IV PRN (10:15)
[2017-11-16] MEDS: SODIUM CHLORIDE 0.9% 1,000 ML IV SCH ×2 (10:59→23:35)
[2017-11-16] MEDS: InsuLIN REG 1unit/0.01ml Soln (100units/ml) SC SCH ×4 (11:53→21:42)
[2017-11-16 12:30] VITALS: BP 117/60
[2017-11-16 16:35] VITALS: BP 122/69
[2017-11-16] MEDS: ATORVASTATIN 20 MG TAB PO SCH (21:40)
[2017-11-16] MEDS: INSULIN LANTUS (GLARGINE) 1 /0.01ml (100units/ml) SC SCH (21:41)
[2017-11-16 22:00] VITALS: BP 120/58
[2017-11-17 05:00] VITALS: BP 121/68
[2017-11-17] MEDS: ACCU-CHEK COMFORT CURVE STRIP VI SCH ×4 (06:36→22:00)
[2017-11-17] MEDS: InsuLIN REG 1unit/0.01ml Soln (100units/ml) SC SCH ×4 (06:38→22:00)
[2017-11-17] MEDS: GABAPENTIN 300 MG CAP PO SCH ×3 (06:38→22:00)
[2017-11-17 07:25] LABS: Basophils # (auto) 0.1 uL; Basophils % (auto) 0.9 % (0.0-2.0); Eosinophils # (auto) 0.1 uL; Eosinophils % (auto) 1.5 % (0.0-7.0); Hematocrit 32.8 % (36.0-46.0); Hemoglobin 11.1 g/dL (12.2-16.2); Lymphocytes # (auto) 2.3 uL; Lymphocytes % (auto) 28.9 % (10.0-50.0); Mean Corpuscular Hemoglobin 29.9 pg (28.0-32.0); Mean Corpuscular Volume 87.9 fL (80.0-100.0); Monocytes # (auto) 0.5 uL; Monocytes % (auto) 6.1 % (0.0-12.0); Neutrophils % (auto) 62.6 % (37.0-80.0); Nucleated Red Blood Cells % 0.1 %; Platelet Count (auto) 284 10^3/uL (140-450); Red Blood Cells 3.73 10^6/uL (4.0-5.20); Red Cell Distribution Width 14.5 % (11.8-14.3)
[2017-11-17 07:31] LABS: Calcium 8.6 mg/dL (8.5-10.1); Potassium 4.4 mmol/L (3.5-5.1)
[2017-11-17 08:00] VITALS: BP 127/68
[2017-11-17 09:03] VITALS: BP 127/68
[2017-11-17] MEDS: FAMOTIDINE 20 MG TAB PO SCH ×2 (09:17→22:00)
[2017-11-17] MEDS: cefTRIAXone 1GM/10ml IVPUSH 10 ML IV SCH (09:17)
[2017-11-17] MEDS: LISINOPRIL 10 MG TAB PO SCH (09:18)
[2017-11-17 11:55] VITALS: BP 126/68
[2017-11-17] MEDS: SODIUM CHLORIDE 0.9% 1,000 ML IV SCH (12:38)
[2017-11-17] MEDS: CLINDAMYCIN 600MG IV 50 ML IV SCH ×2 (13:53→22:00)
[2017-11-17] MEDS: HYDROcodone-ACET 5/325MG TAB PO PRN (15:07)
[2017-11-17 16:35] VITALS: BP 130/70
[2017-11-17 22:00] VITALS: BP 122/55
[2017-11-17] MEDS: ATORVASTATIN 20 MG TAB PO SCH (22:00)
[2017-11-17] MEDS: INSULIN LANTUS (GLARGINE) 1 /0.01ml (100units/ml) SC SCH (22:00)
[2017-11-17] MEDS: HYDROmorphone HCL 2 MG/ML VL IV PRN (23:00)
[2017-11-18] MEDS: SODIUM CHLORIDE 0.9% 1,000 ML IV SCH ×2 (02:15→15:35)
[2017-11-18] MEDS: HYDROcodone-ACET 5/325MG TAB PO PRN ×2 (02:37→10:11)
[2017-11-18] MEDS: HYDROmorphone HCL 2 MG/ML VL IV PRN (03:17)
[2017-11-18 04:53] VITALS: BP 136/62
[2017-11-18] MEDS: GABAPENTIN 300 MG CAP PO SCH ×3 (06:00→20:40)
[2017-11-18] MEDS: CLINDAMYCIN 600MG IV 50 ML IV SCH ×3 (06:39→20:39)
[2017-11-18] MEDS: InsuLIN REG 1unit/0.01ml Soln (100units/ml) SC SCH ×3 (06:40→17:00)
[2017-11-18] MEDS: ACCU-CHEK COMFORT CURVE STRIP VI SCH ×4 (06:40→20:42)
[2017-11-18 08:40] VITALS: BP 136/68
[2017-11-18] MEDS: LISINOPRIL 10 MG TAB PO SCH (10:09)
[2017-11-18] MEDS: cefTRIAXone 1GM/10ml IVPUSH 10 ML IV SCH (10:09)
[2017-11-18] MEDS: FAMOTIDINE 20 MG TAB PO SCH ×2 (10:09→20:40)
[2017-11-18 11:52] VITALS: BP 155/69
[2017-11-18 17:00] VITALS: BP 101/73
[2017-11-18] MEDS: SENNA 8.6 MG TAB PO SCH (20:40)
[2017-11-18] MEDS: INSULIN LANTUS (GLARGINE) 1 /0.01ml (100units/ml) SC SCH (20:41)
[2017-11-18] MEDS: ATORVASTATIN 20 MG TAB PO SCH (20:42)
[2017-11-18 22:00] VITALS: BP 144/65
[2017-11-19 04:47] VITALS: BP 107/73
[2017-11-19] MEDS: CLINDAMYCIN 600MG IV 50 ML IV SCH ×3 (05:11→22:07)
[2017-11-19] MEDS: SODIUM CHLORIDE 0.9% 1,000 ML IV SCH ×2 (05:11→18:31)
[2017-11-19] MEDS: GABAPENTIN 300 MG CAP PO SCH ×3 (05:11→21:40)
[2017-11-19] MEDS: InsuLIN REG 1unit/0.01ml Soln (100units/ml) SC SCH ×4 (05:20→21:41)
[2017-11-19] MEDS: ACCU-CHEK COMFORT CURVE STRIP VI SCH ×4 (05:21→21:42)
[2017-11-19 07:07] LABS: Basophils # (auto) 0.1 uL; Basophils % (auto) 0.8 % (0.0-2.0); Eosinophils # (auto) 0.1 uL; Eosinophils % (auto) 1.5 % (0.0-7.0); Lymphocytes # (auto) 2.3 uL; Lymphocytes % (auto) 28.6 % (10.0-50.0); Mean Corpuscular Hemoglobin 29.1 pg (28.0-32.0); Mean Corpuscular Hgb Conc. 33.2 g/dL (32.0-36.0); Mean Corpuscular Volume 87.8 fL (80.0-100.0); Monocytes # (auto) 0.4 uL; Monocytes % (auto) 4.8 % (0.0-12.0); Neutrophils # (auto) 5.1 uL; Neutrophils % (auto) 64.3 % (37.0-80.0); Nucleated Red Blood Cells % 0.1 %; Platelet Count (auto) 280 10^3/uL (140-450); Red Blood Cells 3.76 10^6/uL (4.0-5.20); Red Cell Distribution Width 14.5 % (11.8-14.3); White Blood Cell 7.9 10^3/uL (4.4-10.8)
[2017-11-19 07:26] LABS: BUN/Creatinine Ratio 33.3; Calcium 8.4 mg/dL (8.5-10.1)
[2017-11-19 08:50] VITALS: BP 128/61
[2017-11-19] MEDS: FAMOTIDINE 20 MG TAB PO SCH ×2 (12:37→21:40)
[2017-11-19] MEDS: cefTRIAXone 1GM/10ml IVPUSH 10 ML IV SCH (12:37)
[2017-11-19] MEDS: LISINOPRIL 10 MG TAB PO SCH (12:38)
[2017-11-19 14:20] VITALS: BP 125/63
[2017-11-19 17:06] VITALS: BP 103/85
[2017-11-19 20:20] VITALS: BP 151/70
[2017-11-19] MEDS: ATORVASTATIN 20 MG TAB PO SCH (21:40)
[2017-11-19] MEDS: SENNA 8.6 MG TAB PO SCH (21:40)
[2017-11-19] MEDS: INSULIN LANTUS (GLARGINE) 1 /0.01ml (100units/ml) SC SCH (21:41)
[2017-11-20 04:52] VITALS: BP 125/61
[2017-11-20] MEDS: GABAPENTIN 300 MG CAP PO SCH ×2 (05:31→13:50)
[2017-11-20] MEDS: CLINDAMYCIN 600MG IV 50 ML IV SCH (05:31)
[2017-11-20] MEDS: ACCU-CHEK COMFORT CURVE STRIP VI SCH ×2 (06:05→11:30)
[2017-11-20] MEDS: InsuLIN REG 1unit/0.01ml Soln (100units/ml) SC SCH ×2 (06:05→13:50)
[2017-11-20 06:42] LABS: Basophils # (auto) 0.1 uL; Basophils % (auto) 0.7 % (0.0-2.0); Eosinophils # (auto) 0.1 uL; Eosinophils % (auto) 1.7 % (0.0-7.0); Hematocrit 33.6 % (36.0-46.0); Hemoglobin 11.2 g/dL (12.2-16.2); Lymphocytes # (auto) 2.2 uL; Mean Corpuscular Hemoglobin 28.8 pg (28.0-32.0); Mean Corpuscular Hgb Conc. 33.2 g/dL (32.0-36.0); Mean Corpuscular Volume 86.8 fL (80.0-100.0); Monocytes # (auto) 0.4 uL; Monocytes % (auto) 5.1 % (0.0-12.0); Neutrophils # (auto) 5.5 uL; Neutrophils % (auto) 66.5 % (37.0-80.0); Nucleated Red Blood Cells % 0.1 %; Platelet Count (auto) 293 10^3/uL (140-450); Red Blood Cells 3.87 10^6/uL (4.0-5.20); Red Cell Distribution Width 14.6 % (11.8-14.3); White Blood Cell 8.3 10^3/uL (4.4-10.8)
[2017-11-20 07:02] LABS: BUN/Creatinine Ratio 24.2; Calcium 8.2 mg/dL (8.5-10.1); Potassium 3.9 mmol/L (3.5-5.1)
[2017-11-20] MEDS: SODIUM CHLORIDE 0.9% 1,000 ML IV SCH (07:35)
[2017-11-20 08:36] VITALS: BP 120/65
[2017-11-20] MEDS: cefTRIAXone 1GM/10ml IVPUSH 10 ML IV SCH (08:58)
[2017-11-20] MEDS: FAMOTIDINE 20 MG TAB PO SCH (11:02)
[2017-11-20] MEDS: LISINOPRIL 10 MG TAB PO SCH (11:03)
[2017-11-20 12:39] VITALS: BP 158/79
[2017-11-20] MEDS ORDERED: NITROFURANTOIN (MONO) 100 mg CAP PO SCH (22:00)
== END 2017-11-20 16:45 | disposition home or self-care (01) | DRG 344 ==
LOC: ER 09:48 → TELE 09:49 → TELE-EAST 19:45 → EAST 11-16 18:00
PROVIDERS: ADMIT Internal Medicine; ATTEND Internal Medicine
DX: E11.69 Type 2 diabetes mellitus with other specified complication (principal); M86.8X7 Other osteomyelitis, ankle and foot; E11.649 Type 2 diabetes mellitus with hypoglycemia without coma; E44.0 Moderate protein-calorie malnutrition; E66.01 Morbid (severe) obesity due to excess calories; F32.9 Major depressive disorder, single episode, unspecified; F41.9 Anxiety disorder, unspecified; N39.0 Urinary tract infection, site not specified; M21.961 Unspecified acquired deformity of right lower leg; E78.5 Hyperlipidemia, unspecified; I10 Essential (primary) hypertension; N20.0 Calculus of kidney; B96.20 Unspecified Escherichia coli [E. coli] as the cause of diseases classified elsewhere; Z68.39 Body mass index [BMI] 39.0-39.9, adult; Z83.3 Family history of diabetes mellitus; Z85.41 Personal history of malignant neoplasm of cervix uteri; Z85.3 Personal history of malignant neoplasm of breast; Z90.710 Acquired absence of both cervix and uterus; Z88.5 Allergy status to narcotic agent; Z88.8 Allergy status to other drugs, medicaments and biological substances
CPT/HCPCS: 36415; 73630; 73700; 73718; 74176; 80048; 80053; 81001; 82150; 82962; 83036; 83690; 85025; 87081; 87086; 87088; 87186; 93970; 96361; 96374; 96375; J1815; J1885; J3490

== ENCOUNTER 2018-09-15 09:51 | Emergency (ER) | payer MEDICARE, MEDICAID ==
[~2018-09-15 09:51] MED LIST changes: +LOSA-49 PO; -LOSA100T27 PO
[2018-09-15 11:30] LABS: Urine Bacteria NONE SEEN /hpf (None Seen); Urine Blood Negative /uL (Negative); Urine Specific Gravity 1.009 (1.001-1.035); Urine WBC 3 /hpf (0 - 5)
[2018-09-15 11:32] LABS: Basophils # (auto) 0.1 uL; Basophils % (auto) 0.8 % (0.0-2.0); Eosinophils # (auto) 0.1 uL; Eosinophils % (auto) 0.9 % (0.0-7.0); Hematocrit 34.8 % (36.0-46.0); Hemoglobin 11.6 g/dL (12.2-16.2); Lymphocytes # (auto) 1.7 uL; Lymphocytes % (auto) 17.7 % (10.0-50.0); Mean Corpuscular Hemoglobin 29.3 pg (28.0-32.0); Mean Corpuscular Hgb Conc. 33.3 g/dL (32.0-36.0); Mean Corpuscular Volume 87.9 fL (80.0-100.0); Monocytes # (auto) 0.3 uL; Monocytes % (auto) 3.5 % (0.0-12.0); Neutrophils # (auto) 7.2 uL; Neutrophils % (auto) 77.1 % (37.0-80.0); Platelet Count (auto) 351 10^3/uL (140-450); Red Blood Cells 3.96 10^6/uL (4.0-5.20); Red Cell Distribution Width 14.2 % (11.8-14.3); White Blood Cell 9.3 10^3/uL (4.4-10.8)
[2018-09-15 11:52] LABS: Albumin 2.9 g/dL (3.4-5.0); BUN/Creatinine Ratio 31.5; Calcium 8.9 mg/dL (8.5-10.1); Potassium 4.6 mmol/L (3.5-5.1)
[2018-09-15 11:55] LABS: Bilirubin, Total 0.2 mg/dL (0.2-1.0); Total Protein 7.1 g/dL (6.4-8.2)
== END 2018-09-15 15:30 | disposition home or self-care (01) ==
LOC: ER 09:51
DX: K59.00 Constipation, unspecified (principal); R11.0 Nausea; E11.9 Type 2 diabetes mellitus without complications; E78.5 Hyperlipidemia, unspecified; I11.0 Hypertensive heart disease with heart failure; I50.9 Heart failure, unspecified; Z88.5 Allergy status to narcotic agent; Z88.8 Allergy status to other drugs, medicaments and biological substances; Z79.4 Long term (current) use of insulin; Z79.899 Other long term (current) drug therapy; Z90.710 Acquired absence of both cervix and uterus
CPT/HCPCS: 36415; 74176; 80053; 81001; 82150; 83690; 85025

== ENCOUNTER → 2021-02-20 | Outpatient (CLI) | payer MEDICARE, MEDICAID ==
[~2021-02-20] MED LIST changes: -AZIT500T4 PO; +AZIT500T66 PO; -HYDR-4683 PO; +HYDR-4833 PO; +LOSA-39 PO; -LOSA-49 PO
== END | disposition home or self-care (01) ==
LOC: Rad HDHVI 09:36
PROVIDERS: ATTEND Internal Medicine
DX: I10 Essential (primary) hypertension (principal); R07.9 Chest pain, unspecified
CPT/HCPCS: 93306

== ENCOUNTER → 2021-04-21 | Outpatient (CLI) | payer OTHER, MEDICAID | END | disposition home or self-care (01) | LOC: Rad HDHVI 08:35 | PROVIDERS: ATTEND Internal Medicine | DX: I10 Essential (primary) hypertension (principal); I73.9 Peripheral vascular disease, unspecified | CPT/HCPCS: 93925 ==

== ENCOUNTER 2022-03-01 14:16 | Emergency (ER) | payer OTHER, MEDICAID ==
[~2022-03-01] VITALS: Ht 152.4 cm; Wt 175.0 kg
[2022-03-01 14:58] LABS: Basophils # (auto) 0.1 10 ^3/uL (0-0.2); Basophils % (auto) 0.9 % (0.0-2.0); Eosinophils # (auto) 0.1 10 ^3/uL (0-0.8); Eosinophils % (auto) 0.5 % (0.0-7.0); Hematocrit 41.1 % (36.0-46.0); Hemoglobin 13.1 g/dL (12.2-16.2); Lymphocytes # (auto) 1.6 10 ^3/uL (0.4-5.4); Lymphocytes % (auto) 14.7 % (10.0-50.0); Mean Corpuscular Hemoglobin 27.5 pg (28.0-32.0); Mean Corpuscular Hgb Conc. 31.9 g/dL (32.0-36.0); Mean Corpuscular Volume 86.3 fL (80.0-100.0); Monocytes # (auto) 0.4 10 ^3/uL (0-1.3); Monocytes % (auto) 4.1 % (0.0-12.0); Neutrophils # (auto) 8.7 10 ^3/uL (1.6-8.6); Neutrophils % (auto) 79.8 % (37.0-80.0); Red Blood Cells 4.76 10^6/uL (4.0-5.20); Red Cell Distribution Width 14.2 % (11.8-14.3); White Blood Cell 10.9 10^3/uL (4.4-10.8)
[2022-03-01 16:07] LABS: Albumin 3.5 g/dL (3.4-5.0); Calcium 9.5 mg/dL (8.5-10.1); Potassium 4.5 mmol/L (3.5-5.1)
[2022-03-01 16:24] LABS: BUN/Creatinine Ratio 21.8; Bilirubin, Total 0.3 mg/dL (0.2-1.0); Total Protein 7.2 g/dL (6.4-8.2)
[2022-03-01] MEDS ORDERED: CEPH-322 PO (17:09)
[2022-03-01 18:41] VITALS: BP 132/74
== END 2022-03-01 18:42 | disposition home or self-care (01) ==
LOC: EDBD 14:16 → ER 14:16
DX: R10.9 Unspecified abdominal pain (principal); I10 Essential (primary) hypertension; E11.65 Type 2 diabetes mellitus with hyperglycemia; D72.829 Elevated white blood cell count, unspecified; E78.5 Hyperlipidemia, unspecified; I11.0 Hypertensive heart disease with heart failure; I50.9 Heart failure, unspecified; Z90.710 Acquired absence of both cervix and uterus; Z88.6 Allergy status to analgesic agent; Z88.8 Allergy status to other drugs, medicaments and biological substances; Z91.018 Allergy to other foods
CPT/HCPCS: 36415; 74176; 80053; 84484; 85025

== ENCOUNTER → 2023-02-13 | Outpatient (CLI) | payer MEDICAID, OTHER ==
[~2023-02-13] MED LIST changes: +CEPH250C PO; +GABA-1250 PO; -GABA300C10 PO; -LOSA-39 PO; +LOSA100T58 PO
== END | disposition home or self-care (01) ==
LOC: Rad HDHVI 14:04
PROVIDERS: ATTEND Internal Medicine Cardiovascular Disease
DX: I37.1 Nonrheumatic pulmonary valve insufficiency (principal); I10 Essential (primary) hypertension; R00.2 Palpitations
CPT/HCPCS: 93306

== ENCOUNTER → 2023-09-04 | Outpatient (CLI) | payer OTHER ==
[~2023-09-04] MED LIST changes: +ANGIOMAX 250 MG VIAL IV ONE; +ASPI-543 PO; +CHOL20007 PO; +ENAL2.5T11 PO; +FURO1TAB33 PO; +INSU1INJ19 SC; +IODIXANOL 320MG/ML 100ML BTL IV ONE; +LIDOCAINE 2%HCL (LOCAL ANESTH.) INJ 20ML MDV ONE; +LOSA50TA46 PO; +METF-929 PO; +MIDAZOLAM HCL 2MG/2ML 2ml VIAL (1mg/ml) ONE; +SEMA2INJ3 SC; +SODIUM CHL 0.9% 0 ML ONE; +fentaNYL CITRATE 100 MCG/2 ML VL ONE
[2023-09-04 10:00] VITALS: BP 177/76; PULSE 78; RESP 18; O2SAT 94
[2023-09-04 10:15] VITALS: BP 189/81; PULSE 77; RESP 18; O2SAT 94
== END | disposition home or self-care (01) ==
LOC: Rad HDHVI 09:40
PROVIDERS: ATTEND Internal Medicine Cardiovascular Disease
DX: Z01.818 Encounter for other preprocedural examination (principal); I10 Essential (primary) hypertension; R06.02 Shortness of breath; R07.9 Chest pain, unspecified
CPT/HCPCS: 71046; 93005; G0463

== ENCOUNTER 2023-09-05 07:25 | Day surgery (SDC) | payer OTHER, MEDICAID ==
[2023-09-04 12:44] LABS: Basophils # (auto) 0.1 10 ^3/uL (0-0.2); Basophils % (auto) 0.8 % (0.0-2.0); Eosinophils # (auto) 0.1 10 ^3/uL (0-0.8); Eosinophils % (auto) 1.2 % (0.0-7.0); Hematocrit 38.4 % (36.0-46.0); Hemoglobin 12.5 g/dL (12.2-16.2); Lymphocytes # (auto) 2.2 10 ^3/uL (0.4-5.4); Lymphocytes % (auto) 20.3 % (10.0-50.0); Mean Corpuscular Hgb Conc. 32.7 g/dL (32.0-36.0); Mean Corpuscular Volume 88.7 fL (80.0-100.0); Monocytes # (auto) 0.4 10 ^3/uL (0-1.3); Monocytes % (auto) 3.7 % (0.0-12.0); Neutrophils # (auto) 8.1 10 ^3/uL (1.6-8.6); Red Blood Cells 4.33 10^6/uL (4.0-5.20); Red Cell Distribution Width 13.5 % (11.8-14.3)
[2023-09-04 13:16] LABS: Chloride 105 mmol/L (98-107); Potassium 4.9 mmol/L (3.5-5.1); Sodium 139 mmol/L (136-145)
[2023-09-04 13:17] LABS: Anion Gap 5 (5-15); Carbon Dioxide 29 mmol/L (20-30)
[2023-09-04 13:18] LABS: Calcium 9.7 mg/dL (8.5-10.1)
[2023-09-04 13:22] LABS: BUN/Creatinine Ratio 18.9 (10.0-20.0); Blood Urea Nitrogen 24 mg/dL (9-23); Glucose 315 mg/dL (74-106)
[2023-09-04 13:42] LABS: INR 1.04 (0.9-1.15); Partial Thromboplastin Time 28.2 SEC (24.5-34.5); Prothrombin Time 10.9 sec (9.3-11.8)
[2023-09-05] VITALS (8 sets, daily range): BP systolic 135–163; BP diastolic 58–77; PULSE 64–68; RESP 14–18; TEMP 98; O2SAT 95–98
[~2023-09-05] VITALS: Ht 152.4 cm; Wt 91.6 kg
[~2023-09-05 07:25] MED LIST changes: -ANGIOMAX 250 MG VIAL IV ONE; -AZIT500T66 PO; -CEPH250C PO; -FURO40TA4 PO; -GABA-1250 PO; -HYDR-4833 PO; -INSLANTI SC; -INSUINJ18 SC; -IODIXANOL 320MG/ML 100ML BTL IV ONE; -LIDOCAINE 2%HCL (LOCAL ANESTH.) INJ 20ML MDV ONE; -LIS10T PO; -LOSA100T58 PO; -METF-929 PO; -MIDAZOLAM HCL 2MG/2ML 2ml VIAL (1mg/ml) ONE; -SACC250C PO; -SODIUM CHL 0.9% 0 ML ONE; -fentaNYL CITRATE 100 MCG/2 ML VL ONE
[2023-09-05] MEDS ORDERED: METF-929 PO (16:14)
== END 2023-09-05 16:34 | disposition home or self-care (01) ==
LOC: CATH 07:25
PROVIDERS: ATTEND Internal Medicine Cardiovascular Disease
DX: R07.9 Chest pain, unspecified (principal); I25.10 Atherosclerotic heart disease of native coronary artery without angina pectoris; E11.9 Type 2 diabetes mellitus without complications; I11.0 Hypertensive heart disease with heart failure; I50.9 Heart failure, unspecified; F41.8 Other specified anxiety disorders; E78.5 Hyperlipidemia, unspecified; E66.01 Morbid (severe) obesity due to excess calories; Z68.39 Body mass index [BMI] 39.0-39.9, adult; Z91.018 Allergy to other foods; Z83.3 Family history of diabetes mellitus; Z80.9 Family history of malignant neoplasm, unspecified; Z88.8 Allergy status to other drugs, medicaments and biological substances; Z88.5 Allergy status to narcotic agent; Z79.4 Long term (current) use of insulin; Z79.82 Long term (current) use of aspirin; Z79.899 Other long term (current) drug therapy; Z79.84 Long term (current) use of oral hypoglycemic drugs; Z90.710 Acquired absence of both cervix and uterus
CPT/HCPCS: 36415; 80048; 85025; 85610; 85730; 93458; C1769; C1894; J0583; J1644; J2250; J3010; J7030; Q9967; 99152

== ENCOUNTER 2024-05-08 21:43 | Inpatient (IN) | payer OTHER, MEDICAID ==
[~2024-05-08] VITALS: Ht 152.4 cm; Wt 94.4 kg
[~2024-05-08 21:43] MED LIST changes: +ENAL1TAB43 PO; -ENAL2.5T11 PO; +LOSA-534 PO; -LOSA50TA46 PO; +METF-929 PO
--- NOTE | 2024-05-08 22:02 | ED.PDOC ---
GI ASSESSMENT HPI Comments 58-year-old female came to ER via EMS due to abdominal pain. Patient is constipated for the past 5 days. Went to the bathroom earlier to defecate however she felt something bulge out of her rectum. Noted to have rectal pain. No nausea or vomiting noted. Chief Complaint: Abdominal Pain Time Seen by MD: 22:00 Primary Care Provider: NONE Reviewed Notes: Nurses Notes Allergies: Coded Allergies: Avocado (Verified Allergy, Unknown, 09/04/23) Morphine (Verified Allergy, Unknown, 09/04/23) Tramadol (Verified Allergy, Unknown, 09/04/23) Home Meds Reported Medications Metformin HCl (Metformin Hydrochloride) 1,000 Mg Tab, 1 TAB PO BID for DIABETES HOLD FOR 2 DAYS - MAY RESUME ON SATURDAY MORNING 09/07/23 09/05/23 Enalapril Maleate (VASOTEC TABLET) 2.5 Mg Tb, 1 MG PO DAILY for HYPERTENSION 09/04/23 Aspirin (Aspir-Low) 81 Mg Tab, 1 TAB PO DAILY for HEART ATTACK PREVENTION 09/04/23 Semaglutide (Ozempic) 2 Mg/3 Ml Inj, 1 MG SC QWEEKLY for DIABETES ON Saturday09/04/23 Cholecalciferol (VITAMIN D3) 2,000 Unit Tab, 1 TAB PO DAILY for SUPPLEMENT 09/04/23 Losartan Potassium (Losartan Potassium) 50 Mg Tab, 1 TAB PO DAILY for HYPERTENSION 09/04/23 Insulin Glargine (Basaglar Kwikpen) 100 Unit/Ml Inj, UNITS SC HS PRN for PER DIABETIC SLIDING SCALE 09/04/23 Furosemide (Lasix) 20 Mg Tb, 1 TAB PO DAILY for EDEMA 09/04/23 Atorvastatin Calcium (ATORVASTATIN CALCIUM) 40 Mg Tab, 1 TAB PO HS for HIGH CHOLESTEROL 01/02/17 Information Source: Patient Mode of Arrival: Ambulatory Timing: Days Duration: Since onset Prehospital treatment: None Quality: Aching Stool: Impaction Severity: Moderate Recent: None Pain Location: Other (Rectal pain) Associated sign and symptoms: Constipation Past Medical History PAST MEDICAL HISTORY: Anxiety, Depression, DM, High Lipids, HTN Surgical History: Hysterectomy DRAGGER History: Denies all DRAGGER Hx Family History Family History: Reviewed,noncontributory to illness Social History Smoker: Non-Smoker Alcohol: Denies ETOH Use Drugs: Denies Drug Use Lives In: Home Constitutional: denies: chills, diaphoresis, fatigue, fever, malaise, sweats, weakness, others EENTM: denies: blurred vision, double vision, ear bleeding, ear discharge, ear drainage, ear pain, ear ringing, eye pain, eye redness, hearing loss, mouth pain, mouth swelling, nasal discharge, nose bleeding, nose congestion, nose pain, photophobia, tearing, throat pain, throat swelling, voice changes, others Respiratory: denies: cough, hemoptysis, orthopnea, SOB at rest, shortness of breath, SOB with excertion, stridor, wheezing, others Cardiovascular: denies: chest pain, dizzy spells, diaphoresis, Dyspnea on exertion, edema, irregular heart beat, left arm pain, lightheadedness, palpitations, PND, syncope, others Gastrointestinal: reports: abdominal pain, constipated, rectal pain; denies: abdomen distended, blood streaked bowels, diarrhea, dysphagia, difficulty swallowing, hematemesis, melena, nausea, poor appetite, poor fluid intake, rectal bleeding, vomiting, others Genitourinary: denies: abnormal vagina bleeding, burning, dyspareunia, dysuria, flank pain, frequency, hematuria, incontinence, pain, , vagina discharge, urgency, others Neurological: denies: dizziness, fainting, headache, left sided numbness, left sided weakness, numbness, paresthesia, pre-existing deficit, right sided numbness, right sided weakness, seizure, speech problems, tingling, tremors, weakness, others Musculoskeletal: denies: back pain, gout, joint pain, joint swelling, muscle pain, muscle stiffness, neck pain, others Integumetry: denies: bruises, change in color, change in hair/nails, dryness, laceration, lesions, lumps, rash, wounds, others Allergic/Immunocompromised: denies: Difficulty Healing, Frequent Infections, Hives, Itching, others Hematologic/Lymphatic: denies: anemia, blood clots, easy bleeding, easy bruising, swollen glands, others Endocrine: denies: excessive hunger, excessive sweating, excessive thirst, excessive urination, flushing, intolerance to cold, intolerance to heat, unexplained weight gain, unexplained weight loss, others Psychiatric: denies: anxiety, bipolar disorder, depression, hopeless, panic disorder, schizophrenia, sleepless, suicidal, others Physical Exam General Appearance: No Apparent Distress, Normal HEENT: Normal ENT Inspection, Pharynx Normal, TMs Normal Neck: Full Range of Motion, Non-Tender, Normal, Normal Inspection Respiratory: Chest Non-Tender, Lungs Clear, No Accessory Muscle Use, No Respiratory Distress, Normal Breath Sounds Cardiovascular: No Edema, No JVD, No Murmur, No Gallop, Normal Peripheral Pulses, Regular Rate/Rhythm Breast Exam: Deferred Gastrointestinal: No Organomegaly, Non Tender, No Pulsatile Mass, Normal Bowel Sounds, Soft Genitalia: Deferred Pelvic: Deferred Rectal: Deferred Extremities: No calf tenderness, Normal capillary refill, Normal inspection, Normal range of motion, Non-tender, No pedal edema Musculoskeletal : Apperance: Normal Neurologic: Alert, class a truck driver II-XII nml as Tested, No Motor Deficits, Normal Affect, Normal Mood, No Sensory Deficits Cerebellar Function: Normal Reflexes: Normal Skin: Dry, Normal Color, Warm Lymphatic: No Adenopathy Was a procedure done? Was a procedure done?: No GI differential Dx Differential Diagnosis: Constipation, Diverticular disease, Gastritis/PUD, Gastroenteritis, UTI, Urolithiasis X-Ray, Labs, Meds, VS Vital Signs Date Time Temp Pulse Resp B/P (MAP) Pulse Ox O2 Delivery O2 Flow Rate FiO2 05/09/24 00:16 83 22 166/54 05/09/24 00:15 82 20 166/54 (91) 95 05/08/24 23:15 80 17 188/73 (111) 05/08/24 22:30 76 17 93 Room Air* 0 21 05/08/24 22:30 98.7 76 17 179/63 (101) 93 98.7 05/08/24 21:43 99.0 102 16 145/84 (104) 98 Lab Test 05/08/24 22:18 Range/Units White Blood Count 17.2 H 4.4-10.8 10^3/uL Red Blood Count 4.43 4.0-5.20 10^6/uL Hemoglobin 13.2 12.2-16.2 g/dL Hematocrit 40.5 36.0-46.0 % Mean Corpuscular Volume 91.3 80.0-100.0 fL Mean Corpuscular Hemoglobin 29.8 28.0-32.0 pg Mean Corpuscular Hemoglobin Concent 32.6 32.0-36.0 g/dL Red Cell Distribution Width 13.9 11.8-14.3 % Platelet Count 308 140-450 10^3/uL Mean Platelet Volume 7.6 6.9-10.8 fL Neutrophils (%) (Auto) 86.5 H 37.0-80.0 % Lymphocytes (%) (Auto) 9.5 L 10.0-50.0 % Monocytes (%) (Auto) 2.9 0.0-12.0 % Eosinophils (%) (Auto) 0.7 0.0-7.0 % Basophils (%) (Auto) 0.4 0.0-2.0 % Neutrophils # (Auto) 14.9 H 1.6-8.6 10 ^3/uL Lymphocytes # (Auto) 1.6 0.4-5.4 10 ^3/uL Monocytes # (Auto) 0.5 0-1.3 10 ^3/uL Eosinophils # (Auto) 0.1 0-0.8 10 ^3/uL Basophils # (Auto) 0.1 0-0.2 10 ^3/uL Nucleated Red Blood Cells 0.0 % Sodium Level 137 136-145 mmol/L Potassium Level 4.3 3.5-5.1 mmol/L Chloride Level 107 98-107 mmol/L Carbon Dioxide Level 20 20-31 mmol/L Anion Gap 10 5-15 Blood Urea Nitrogen 18 9-23 mg/dL Creatinine 1.43 H 0.550-1.02 mg/dL Glomerular Filtration Rate Calc 43 >90 mL/min BUN/Creatinine Ratio 12.6 10.0-20.0 Serum Glucose 379 H 74-106 mg/dL Calcium Level 9.7 8.7-10.4 mg/dL Current Medications Medications (Trade) Dose Ordered Sig/Jayjay Route Start Time Stop Time Status Last Admin Ondansetron HCl (Zofran) 4 mg ONCE ONCE IV 05/08/24 22:00 05/08/24 22:01 DC 05/09/24 00:16 Sodium Chloride 1,000 ml @ 1,000 mls/hr Q1H ONCE IV 05/08/24 22:00 05/08/24 22:59 DC 05/09/24 00:17 Morphine Sulfate 4 mg ONCE ONCE IV 05/08/24 22:00 05/08/24 22:01 DC 05/09/24 00:16 Exam: CT CT AB PEL WITH IV CON ONLY History: abdominal pain Comparison Study: None available at time of dictation. Technique: Multidetector spiral CT of the abdomen and pelvis was performed from lung bases to pubic symphysis. Intravenous contrast was administered during this examination. Portal venous imaging was obtained. Axial, coronal and sagittal multiplanar reformats were performed by the technologist on a separate workstation. Radiation Dose : 1. Abdomen/Pelvis: CTDIvol 25 mGy, DLP 1479 mGy*cm. Findings: Lung Bases: No acute or significant lung base finding. Normal heart size. No pleural or pericardial effusion. Liver: The liver is normal in size. No focal lesions. Normal hepatic vascular enhancement. Gallbladder and Biliary Tree: Gallbladder is surgically absent. Spleen: Unremarkable Pancreas: The pancreas is normal in appearance without focal lesions or abnormal enhancement. Adrenal Glands: 7 mm left adrenal nodule. Kidneys: Subcentimeter hypodensity in the left kidney. Ectopic right kidney which is located in the right lower abdomen. Bladder: Air in the nondependent portion of the urinary bladder. Bowel: The stomach is grossly normal in appearance. Small bowel and colon are normal in caliber and distribution. The appendix is not visualized; however, no secondary findings of acute appendicitis identified. Ascites: Absent Lymphadenopathy: No mesenteric, retroperitoneal or periportal lymphadenopathy. Abdominal Wall and Mesentery: .Anterior midline abdominal wall subcutaneous tissue demonstrating increased attenuation just superior to the umbilicus. Vasculature: The visualized abdominal aorta is normal in size and caliber. Abdominal and pelvic vessels demonstrate normal enhancement. Pelvic Organs: Hysterectomy. Musculoskeletal: No aggressive focal bony lesions, acute fractures or dislocation. IMPRESSION: Free air within the urinary bladder. Correlate with recent instrumentation, otherwise this may be due to an infectious process. Increased attenuation along the anterior abdominal wall subcutaneous tissue just superior to the umbilicus which may be from prior trauma versus infection. Ectopic right kidney located in the right lower abdomen. Time of 1ST Reevaluation: 21:56 Reevaluation 1ST: Unchanged Patient Education/Counseling: Diagnosis, Treatment Family Education/Counseling: No Family Present Departure 1 Departure Time of Disposition: 01:13 (Patient presented with abdominal pain that was concerning for possible appendicits, gastritis, cholecystitis, colitis, gastroenteritis, sbo, or orther possible surgical emergency. Data: 1. I ordered and reviewed the result of at least 3 labs including a CBC, BMP, and Urinalysis. 2. I independently interpreted the following tests: CT Abdoment and Pelvis is concerning for colitis and extra kidney.Risk:This patient has a high risk of morbidity due to further diagnostic testing or treatment and may suffer from an acute abdominal process disorder. Workup reveals infection of some kind with diffuse colitis and patient should be admitted for further workup. and possible expert consultation. ) Impression: Primary Impression: Intractable abdominal pain Additional Impression: Colitis Disposition: ADMITTED INPATIENT Admit to: Med Surg Condition: Serious Critical Care Note Critical Care Time?: Yes Critical care comment: Intractable abdominal pain Authorized and Performed by: Jonathan Hooper MD Total critical care time: Approximately 48 minutes Due to a high probability of clinically significant, life threatening deterioration, the patient required my highest level of preparedness to intervene emergently and I personally spent this critical care time directly and personally managing the patient. This critical care time included obtaining a history; examining the patient; pulse oximetry; ordering and review of studies; arranging urgent treatment with development of a management plan; evaluation of patient's response to treatment; frequent reassessment; and, discussions with other providers. This critical care time was performed to assess and manage the high probability of imminent, life-threatening deterioration that could result in multi-organ failure. It was exclusive of separately billable procedures and treating other patients and teaching time. Please see my other sections and the rest of the note for further information on patient assessment and treatment. Stability Stability form required: No Heart Score Heart Score: Heart Score Response (Comments) Value History N/A 0 EKG N/A 0 Age N/A 0 Risk Factors N/A 0 Troponin N/A 0 Total 0 I personally scribed for JONATHAN HOOPER MD ([email or web address]) on 05/08/24 at 22:02. Electronically submitted by Herman Holden ([email or web address]). I personally scribed for JONATHAN HOOPER MD ([email or web address]) on 05/09/24 at 01:04. Electronically submitted by Herman Holden ([email or web address]). JONATHAN HOOPER MD May 08, 2024 22:02
[2024-05-08 22:25] LABS: Basophils # (auto) 0.1 10 ^3/uL (0-0.2); Basophils % (auto) 0.4 % (0.0-2.0); Eosinophils # (auto) 0.1 10 ^3/uL (0-0.8); Eosinophils % (auto) 0.7 % (0.0-7.0); Hematocrit 40.5 % (36.0-46.0); Hemoglobin 13.2 g/dL (12.2-16.2); Lymphocytes # (auto) 1.6 10 ^3/uL (0.4-5.4); Lymphocytes % (auto) 9.5 % (10.0-50.0); Mean Corpuscular Hemoglobin 29.8 pg (28.0-32.0); Mean Corpuscular Hgb Conc. 32.6 g/dL (32.0-36.0); Mean Corpuscular Volume 91.3 fL (80.0-100.0); Monocytes # (auto) 0.5 10 ^3/uL (0-1.3); Monocytes % (auto) 2.9 % (0.0-12.0); Neutrophils # (auto) 14.9 10 ^3/uL (1.6-8.6); Neutrophils % (auto) 86.5 % (37.0-80.0); Platelet Count (auto) 308 10^3/uL (140-450); Red Blood Cells 4.43 10^6/uL (4.0-5.20); Red Cell Distribution Width 13.9 % (11.8-14.3); White Blood Cell 17.2 10^3/uL (4.4-10.8)
[2024-05-08 22:30] VITALS: PULSE 76; RESP 17; O2SAT 93
[2024-05-08 22:54] LABS: Chloride 107 mmol/L (98-107); Potassium 4.3 mmol/L (3.5-5.1); Sodium 137 mmol/L (136-145)
[2024-05-08 22:55] LABS: Anion Gap 10 (5-15); Carbon Dioxide 20 mmol/L (20-31)
[2024-05-08 22:56] LABS: Calcium 9.7 mg/dL (8.7-10.4)
[2024-05-08 23:00] LABS: BUN/Creatinine Ratio 12.6 (10.0-20.0); Blood Urea Nitrogen 18 mg/dL (9-23); Glucose 379 mg/dL (74-106)
[2024-05-08] MEDS: IOHEXOL 300 MG/ML 100ML BOTTLE IJ ONE (23:34)
[2024-05-09] MEDS: ONDANSETRON HCL 4 MG/2 ML VIAL IV ONE (00:16)
[2024-05-09] MEDS: MORPHINE SULFATE 4 MG/ML SYR/VIAL IV ONE (00:16)
[2024-05-09] MEDS: SODIUM CHLORIDE 0.9% 1,000 ML IV ONE (00:17)
--- NOTE | 2024-05-09 00:40 | DVH ---
Exam: CT CT AB PEL WITH IV CON ONLY History: abdominal pain Comparison Study: None available at time of dictation. Technique: Multidetector spiral CT of the abdomen and pelvis was performed from lung bases to pubic s ymphysis. Intravenous contrast was administered during this examination. Portal venous imaging was obtained. Axial, coronal and sagittal multiplanar reformats were performed by the technologist on a separate workstation. Radiation Dose : 1. Abdomen/Pelvis: CTDIvol 25 mGy, DLP 1479 mGy*cm. Findings: Lung Bases: No acute or significant lung base finding. Normal heart size. No pleural or pericardial effusion. Liver: The liver is normal in size. No focal lesions. Normal hepatic vascular enhancement. Gallbladder and Biliary Tree: Gallbladder is surgically absent. Spleen: Unremarkable Pancreas: The pancreas is normal in appearance without focal lesions or abnormal enhancement. Adrenal Glands: 7 mm left adrenal nodule. Kidneys: Subcentimeter hypodensity in the left kidney. Ectopic right kidney which is located in the r ight lower abdomen. Bladder: Air in the nondependent portion of the urinary bladder. Bowel: The stomach is grossly normal in appearance. Small bowel and colon are normal in caliber and d istribution. The appendix is not visualized; however, no secondary findings of acute appendicitis id entified. Ascites: Absent Lymphadenopathy: No mesenteric, retroperitoneal or periportal lymphadenopathy. Abdominal Wall and Mesentery: .Anterior midline abdominal wall subcutaneous tissue demonstrating incr eased attenuation just superior to the umbilicus. Vasculature: The visualized abdominal aorta is normal in size and caliber. Abdominal and pelvic vess els demonstrate normal enhancement. Pelvic Organs: Hysterectomy. Musculoskeletal: No aggressive focal bony lesions, acute fractures or dislocation. IMPRESSION: Free air within the urinary bladder. Correlate with recent instrumentation, otherwise this may be du e to an infectious process. Increased attenuation along the anterior abdominal wall subcutaneous tissue just superior to the umbi licus which may be from prior trauma versus infection. Ectopic right kidney located in the right lower abdomen.
[2024-05-09] MEDS: VANCOMYCIN 1GM/200ML PREMIX 200 ML IV ONE (02:09)
[2024-05-09] MEDS: CEFEPIME 2GM/50ML NS 50 ML IV ONE (03:46)
[2024-05-09] MEDS ORDERED: ACETAMINOPHEN 325 MG TAB PO PRN (04:00)
[2024-05-09] MEDS ORDERED: DOCUSATE SOD 100 MG CAP PO PRN (04:00)
[2024-05-09] MEDS ORDERED: ONDANSETRON HCL 4 MG/2 ML VIAL IV PRN (04:00)
[2024-05-09] MEDS ORDERED: DEXTROSE (50%) 50ML SYRG IV PRN (04:00)
[2024-05-09] MEDS: SODIUM CHLORIDE 0.9% 1,000 ML IV SCH (04:18)
[2024-05-09 04:36] LABS: Basophils # (auto) 0.1 10 ^3/uL (0-0.2); Basophils % (auto) 0.8 % (0.0-2.0); Eosinophils # (auto) 0.1 10 ^3/uL (0-0.8); Eosinophils % (auto) 0.6 % (0.0-7.0); Hematocrit 35.5 % (36.0-46.0); Hemoglobin 11.7 g/dL (12.2-16.2); Lymphocytes # (auto) 2.1 10 ^3/uL (0.4-5.4); Lymphocytes % (auto) 17.3 % (10.0-50.0); Mean Corpuscular Hemoglobin 29.7 pg (28.0-32.0); Mean Corpuscular Volume 90.1 fL (80.0-100.0); Monocytes # (auto) 0.5 10 ^3/uL (0-1.3); Monocytes % (auto) 3.9 % (0.0-12.0); Neutrophils # (auto) 9.5 10 ^3/uL (1.6-8.6); Neutrophils % (auto) 77.4 % (37.0-80.0); Platelet Count (auto) 272 10^3/uL (140-450); Red Blood Cells 3.94 10^6/uL (4.0-5.20); Red Cell Distribution Width 13.8 % (11.8-14.3); White Blood Cell 12.3 10^3/uL (4.4-10.8)
[2024-05-09] MEDS: HYDROcodone-ACET 5/325MG TAB PO PRN (04:40)
[2024-05-09 04:55] LABS: Alanine Aminotransferase 13 U/L (7-40); Albumin 3.6 g/dL (3.2-4.8); Alkaline Phosphatase 111 U/L (46-116); Anion Gap 4 (5-15); Aspartate Aminotransferase 10 U/L (13-40); BUN/Creatinine Ratio 15.1 (10.0-20.0); Bilirubin, Total 0.4 mg/dL (0.2-1.0); Blood Urea Nitrogen 16 mg/dL (9-23); Calcium 8.8 mg/dL (8.7-10.4); Carbon Dioxide 25 mmol/L (20-31); Chloride 110 mmol/L (98-107); Glucose 305 mg/dL (74-106); Potassium 4.4 mmol/L (3.5-5.1); Sodium 139 mmol/L (136-145)
[2024-05-09] MEDS ORDERED: NITROGLYCERIN 0.4 MG SL TAB SL PRN (05:00)
[2024-05-09] MEDS ORDERED: MORPHINE SULFATE INJ 2 MG/ml SYRG IV PRN (05:00)
--- NOTE | 2024-05-09 05:00 | DVHHP2 ---
History of Present Illness Reason for Visit: Intractable abdominal pain History of Present Illness The patient is a 58-year-old female with past medical history of anxiety, depression, DM, hyperlipidemia, and hypertension who presented to [facility] ED with complaint of abdominal pain. Patient reports symptoms pro gressively get worse with constipation for the past five days, rectal pain, getting worse that prompted this visit. Patient was seen and evaluated in the ED, laboratory data shows elevated WBC 17.2, platelets 308, sodium 137, potassium 4.3, BUN 18, creatinine 1.43, glucose 379, blood pressure 166/54, heart rate 82, temperature 98.7 F, O2 saturation 95% on room air. Abdomen/pelvis CT revealing increased attenuation along the anterior abdominal wall subcutaneous tissue just superior to the umbilicus which may be from prior trauma versus infection; free air within the urinary bladder correlate with recent instrumentation/otherwise this may be due to an infectious process. Patient was started on IV antibiotic regimen Flagyl, please see medication orders section in the computer. On my assessment, patient denies chest pain, no headache, no dizziness, no shortness of breath, no abdominal pain at this moment, no nausea, no vomiting, no fever, no chills. Patient was admitted for further evaluation and medical management. Past Medical History Anxiety, Depression, DM, High Lipids, HTN Past Surgical History Hysterectomy Family History Reviewed, noncontributory to the management of this case. Past Social History The patient lives at home, denies smoking, alcohol or illicit drugs abuse. Review of Systems Constitutional: No: Fever, Chills, Sweats, Weakness, Malaise, Other Eyes: No: Pain, Vision change, Conjunctivae inflammation, Eyelid inflammation, Other, Redness ENT: No: Ear pain, Ear discharge, Nose pain, Nose discharge, Nose congestion, Mouth pain, Mouth swelling, Throat pain, Throat swelling, Other Respiratory: No: Cough, Dry, Shortness of breath, SOB with excertion, Wheezing, Hemoptysis, Pleuritic Pain, Sputum, Wheezing, Other Cardiovascular: No: Chest Pain, Palpitations, Orthopnea, Paroxysmal Noc. Dyspnea, Edema, Lt Headedness, Other Gastrointestinal: Abdominal Pain, Constipation, Other (Rectal pain); No: Nausea, Vomiting, Diarrhea, Melena, Hematochezia Genitourinary: No Dysuria, No Frequency, No Incontinence, No Hematuria, No Retention, No Other Musculoskeletal: No: other, neck pain, shoulder pain, arm pain, back pain, hand pain, leg pain, foot pain Skin: No: Rash, Lesions, Jaundice, Bruising, Other Neurological: No: Weakness, Numbness, Incoordination, Change in speech, Confusion, Seizures, Other Allergies: Coded Allergies: Avocado (Verified Allergy, Unknown, 09/04/23) Morphine (Verified Allergy, Unknown, 09/04/23) Tramadol (Verified Allergy, Unknown, 09/04/23) Medications Current Medications Medications Dose Ordered Sig/Jayjay Route Start Time Stop Time Status Last Admin Dose Admin Metronidazole 100 ml @ 100 mls/hr Q8HR IV 05/09/24 06:00 Ceftriaxone Sodium 50 ml @ 100 mls/hr DAILY@09 IV 05/10/24 09:00 Aspirin 81 mg DAILY PO 05/09/24 10:00 Atorvastatin Calcium 20 mg HS PO 05/09/24 22:00 Diagnostic Test (Pha) 1 strip ACHS 05/09/24 07:00 Insulin Human Regular HS SC 05/09/24 22:00 Insulin Human Regular AC SC 05/09/24 07:00 Dextrose 50 ml UD PRN IV 05/09/24 04:00 Sodium Chloride 1,000 ml @ 60 mls/hr [id number] IV 05/09/24 04:00 05/09/24 04:18 60 MLS/HR Acetaminophen/ Hydrocodone Bitart 1 tab Q4HP PRN PO 05/09/24 04:00 05/09/24 04:40 1 TAB Ondansetron HCl 4 mg Q4HP PRN IV 05/09/24 04:00 Docusate Sodium 100 mg BIDPRN PRN PO 05/09/24 04:00 Acetaminophen 650 mg Q6HP PRN PO 05/09/24 04:00 Hydralazine HCl 10 mg Q6HP PRN IV 05/09/24 04:00 Losartan Potassium 50 mg DAILY PO 05/09/24 10:00 Exam Vital Signs Vital Signs Date Time Temp Pulse Resp B/P (MAP) Pulse Ox O2 Delivery O2 Flow Rate FiO2 05/09/24 00:16 83 22 166/54 05/09/24 00:15 95 05/08/24 22:30 Room Air* 0 21 05/08/24 22:30 98.7 98.7 General Appearance: Alert, Oriented X3, Cooperative, No acute distress HEENT: Atraumatic, PERRLA, EOMI, Mucous membr. moist/pink Respiratory: Clear to auscultation, Normal air movement Cardiovascular: Regular rate, Normal S1, Normal S2, No murmurs Abdominal: Normal bowel sounds, Soft, No hepatospenomegaly, No masses, Other (Reports tenderness) Extremities: No clubbing, No cyanosis, No edema, Normal pulses, No tenderness/swelling Skin: No rashes, No breakdown, No significant lesion Neuro: Normal gait, Normal speech, Strength at 5/5 X4 ext, Normal tone, Sensation intact, Cranial nerves 3-12 NL, Reflexes 2+ Psych/Mental Status: Mental status NL, Mood NL Labs/Xrays Labs Test 05/09/24 04:20 Range/Units White Blood Count 12.3 #H 4.4-10.8 10^3/uL Red Blood Count 3.94 L 4.0-5.20 10^6/uL Hemoglobin 11.7 L 12.2-16.2 g/dL Hematocrit 35.5 #L 36.0-46.0 % Mean Corpuscular Volume 90.1 80.0-100.0 fL Mean Corpuscular Hemoglobin 29.7 28.0-32.0 pg Mean Corpuscular Hemoglobin Concent 33.0 32.0-36.0 g/dL Red Cell Distribution Width 13.8 11.8-14.3 % Platelet Count 272 140-450 10^3/uL Mean Platelet Volume 7.6 6.9-10.8 fL Neutrophils (%) (Auto) 77.4 37.0-80.0 % Lymphocytes (%) (Auto) 17.3 10.0-50.0 % Monocytes (%) (Auto) 3.9 0.0-12.0 % Eosinophils (%) (Auto) 0.6 0.0-7.0 % Basophils (%) (Auto) 0.8 0.0-2.0 % Neutrophils # (Auto) 9.5 H 1.6-8.6 10 ^3/uL Lymphocytes # (Auto) 2.1 0.4-5.4 10 ^3/uL Monocytes # (Auto) 0.5 0-1.3 10 ^3/uL Eosinophils # (Auto) 0.1 0-0.8 10 ^3/uL Basophils # (Auto) 0.1 0-0.2 10 ^3/uL Nucleated Red Blood Cells 0.0 % Sodium Level 139 136-145 mmol/L Potassium Level 4.4 3.5-5.1 mmol/L Chloride Level 110 H 98-107 mmol/L Carbon Dioxide Level 25 20-31 mmol/L Anion Gap 4 L 5-15 Blood Urea Nitrogen 16 9-23 mg/dL Creatinine 1.06 H 0.550-1.02 mg/dL Glomerular Filtration Rate Calc 61 >90 mL/min BUN/Creatinine Ratio 15.1 10.0-20.0 Serum Glucose 305 H 74-106 mg/dL Calcium Level 8.8 8.7-10.4 mg/dL Total Bilirubin 0.4 0.2-1.0 mg/dL Aspartate Amino Transferase (AST) 10 L 13-40 U/L Alanine Aminotransferase (ALT) 13 7-40 U/L Alkaline Phosphatase 111 46-116 U/L Total Protein 6.0 5.7-8.2 g/dL Albumin 3.6 3.2-4.8 g/dL PATIENT: JEREMY QUIROZ ACCT: [id number] UNIT: [id number] : 1965 LOC: ER ROOM / BED: / AGE / SEX: 58 / F ADM STATUS: REG ER SERVICE 56 ORDERING PHYSICIAN: JONATHAN GRIFFITHS MD PROCEDURE(s): ABPLIV - CT AB PEL WITH IV CON ONLY REASON: abdominal pain ORDER NUMBER(s): [id number], ACCESSION NUMBER(s): [id number] Exam: CT CT AB PEL WITH IV CON ONLY History: abdominal pain Comparison Study: None available at time of dictation. Technique: Multidetector spiral CT of the abdomen and pelvis was performed from lung bases to pubic symphysis. Intravenous contrast was administered during this examination. Portal venous imaging was obtained. Axial, coronal and sagittal multiplanar reformats were performed by the technologist on a separate workstation. Radiation Dose : 1. Abdomen/Pelvis: CTDIvol 25 mGy, DLP 1479 mGy*cm. Findings: Lung Bases: No acute or significant lung base finding. Normal heart size. No pleural or pericardial effusion. Liver: The liver is normal in size. No focal lesions. Normal hepatic vascular enhancement. Gallbladder and Biliary Tree: Gallbladder is surgically absent. Spleen: Unremarkable Pancreas: The pancreas is normal in appearance without focal lesions or abnormal enhancement. Adrenal Glands: 7 mm left adrenal nodule. Kidneys: Subcentimeter hypodensity in the left kidney. Ectopic right kidney which is located in the right lower abdomen. Bladder: Air in the nondependent portion of the urinary bladder. Bowel: The stomach is grossly normal in appearance. Small bowel and colon are normal in caliber and distribution. The appendix is not visualized; however, no secondary findings of acute appendicitis identified. Ascites: Absent Lymphadenopathy: No mesenteric, retroperitoneal or periportal lymphadenopathy. Abdominal Wall and Mesentery: .Anterior midline abdominal wall subcutaneous tissue demonstrating increased attenuation just superior to the umbilicus. Vasculature: The visualized abdominal aorta is normal in size and caliber. Abd ominal and pelvic vessels demonstrate normal enhancement. Pelvic Organs: Hysterectomy. Musculoskeletal: No aggressive focal bony lesions, acute fractures or dislocation. IMPRESSION: Free air within the urinary bladder. Correlate with recent instrumentation, otherwise this may be due to an infectious process. Increased attenuation along the anterior abdominal wall subcutaneous tissue just superior to the umbilicus which may be from prior trauma versus infection. Ectopic right kidney located in the right lower abdomen. Assessment/Plan Assessment/Plan Intractable abdominal pain Hypertension Colitis Leukocytosis, unspecified Diabetes mellitus with hyperglycemia Plan 1. Admit to med surge unit 2. Breathing treatment 3. Pain control management 4. IV antibiotic management 5. Management of fluids and electrolytes 6. Consultation for hospitalist 7. Diagnostic test abdomen/pelvis CT 8. DVT prophylaxis-on aspirin 9. Repeat labs CBC, CMP in a.m. 10. Home medication reviewed and reconciled 11. Continue with current medical management 12. Treatment plan discussed with patient and RN. Patient verbalized understanding. Plan discussed with: Patient, Other (RN) My Orders Orders - MARIA LINDA DNP Procedure Category Date Status Time Metronidazole PHA 05/09/24 In Process 500mg/100ml (Flagyl 06:00 Aspirin Tablet PHA 05/09/24 In Process 10:00 Atorvastatin (Lipitor) PHA 05/09/24 In Process 22:00 Consistent DIET 05/09/24 Transmitted Carb(Ccho)Diabetes Breakfast Glucose Blood PHA 05/09/24 In Process (Accu-Chek Comfort 07:00 Insulin R (Human) PHA 05/09/24 In Process (Insulin R) 22:00 Insulin R (Human) PHA 05/09/24 In Process (Insulin R) 07:00 Dextrose 50% Syringe PHA 05/09/24 In Process 04:00 Allergies WILMA 05/09/24 In Process 03:58 Code Status CODE 05/09/24 Transmitted 03:58 Sodium Chloride 0.9% PHA 05/09/24 In Process 04:00 Oxygen Per Hour RT 05/09/24 Transmitted 03:58 Hydrocodone-Acet PHA 05/09/24 In Process 5/325mg Tab ([place] 04:00 Ondansetron Hcl PHA 05/09/24 In Process (Zofran) 04:00 Docusate Sodium PHA 05/09/24 In Process Capsule (Colace 04:00 Complete Blood Count LAB 05/10/24 Verified 04:00 Comprehensive LAB 05/10/24 Verified Metabolic Panel 04:00 Condition: Serious WILMA 05/09/24 In Process 03:58 Acetaminophen Tablet PHA 05/09/24 In Process (Tylenol Tablet) 04:00 Bedrest With Bathroom WILMA 05/09/24 In Process Privileg 03:58 Sequential WILMA 05/09/24 In Process Compression Device Hydralazine Injection PHA 05/09/24 In Process (Apresoline Inject 04:00 Losartan Tablet PHA 05/09/24 In Process (Cozaar Tablet) 10:00 Ceftriaxone 1gm/50ml PHA 05/10/24 In Process D5w (Rocephin) 09:00 Problem List: (1) Intractable abdominal pain (2) Leukocytosis, unspecified (3) Colitis (4) HTN (hypertension) (5) Diabetes mellitus with hyperglycemia Date of Service: May 09, 2024 Billing Provider: MARIA LINDA DNP Common Visit Codes: [id number] INP/OBS CARE (HIGH) MARIA LINDA DNP May 09, 2024 04:59
[2024-05-09] MEDS: DOCUSATE SOD 100 MG CAP PO ONE (05:25)
[2024-05-09] MEDS: metroNIDAZOLE 500MG/100ML 100 ML IV SCH (06:14)
[2024-05-09] MEDS: ACCU-CHEK COMFORT CURVE STRIP VI SCH (06:38)
[2024-05-09] MEDS: InsuLIN REG 1unit/0.01ml Soln (100units/ml) SC SCH ×2 (06:43→21:32)
[2024-05-09] MEDS: ASPirin 81 mg TAB PO SCH (10:08)
[2024-05-09] MEDS: LOSARTAN POTASSIUM 50 MG TAB PO SCH (10:08)
[2024-05-09] MEDS: LACTULOSE 20Gm/30ML SOLN PO ONE (12:45)
[2024-05-09] MEDS: FLEET ENEMA(ADULT) 135 ML PR ONE (12:45)
[2024-05-09 13:45] VITALS: BP 144/63; PULSE 74; RESP 18; TEMP 97.7; O2SAT 95
--- NOTE | 2024-05-09 14:07 | DVHPN2 ---
Subjective c/o constipation x 6 days c/o lower abdominal pain and N/V Changes from previous H/P or p: Changes Eyes: No Pain, No Vision change, No Conjunctivae inflammation, No Eyelid inflammation, No Other, No Redness ENT: No Ear pain, No Ear discharge, No Nose pain, No Nose discharge, No Nose congestion, No Mouth pain, No Mouth swelling, No Throat pain, No Throat swelling, No Other Cardiovascular: No Chest Pain, No Palpitations, No Orthopnea, No Paroxysmal Noc. Dyspnea, No Edema, No Lt Headedness, No Other Respiratory: No Cough, No Dry, No Shortness of breath, No SOB with excertion, No Wheezing, No Hemoptysis, No Pleuritic Pain, No Sputum, No Other Gastrointestinal: No Nausea, No Vomiting; Abdominal Pain; No Diarrhea; C onstipation; No Melena, No Hematochezia; Other (Rectal pain) Genitourinary: No Dysuria, No Frequency, No Incontinence, No Hematuria, No Retention, No Other Musculoskeletal: No other, No neck pain, No shoulder pain, No arm pain, No back pain, No hand pain, No leg pain, No foot pain Skin: No Rash, No Lesions, No Jaundice, No Bruising, No Other Objective Vitals Vital Signs Date Time Temp Pulse Resp B/P (MAP) Pulse Ox O2 Delivery O2 Flow Rate FiO2 05/09/24 10:16 68 16 132/45 (74) 96 05/08/24 22:30 Room Air* 0 21 05/08/24 22:30 98.7 98.7 Intake/Output Intake and Output 05/09/24 07:00 Intake Total 1345.0 ml Balance 1345.0 ml Intake IV Total 1345.0 ml General Appearance: Alert, Oriented X3, Cooperative Lungs: Clear to auscultation, Normal air movement Cardiovascular: Regular rate, Normal S1, Normal S2 Abdomen: Normal bowel sounds, Soft, Other (+Tenderness in lower abdomen) Extremities: No edema Medications Current Medications Medications Dose Ordered Sig/Jayjay Route Start Time Stop Time Status Last Admin Dose Admin Metronidazole 100 ml @ 100 mls/hr Q8HR IV 05/09/24 06:00 05/09/24 06:14 100 MLS/HR Ceftriaxone Sodium 50 ml @ 100 mls/hr DAILY@09 IV 05/10/24 09:00 Aspirin 81 mg DAILY PO 05/09/24 10:00 05/09/24 10:08 81 MG Atorvastatin Calcium 20 mg HS PO 05/09/24 22:00 Diagnostic Test (Pha) 1 strip ACHS 05/09/24 07:00 05/09/24 11:30 1 STRIP Insulin Human Regular HS SC 05/09/24 22:00 Insulin Human Regular AC SC 05/09/24 07:00 05/09/24 11:30 3 UNITS Dextrose 50 ml UD PRN IV 05/09/24 04:00 Sodium Chloride 1,000 ml @ 60 mls/hr [id number] IV 05/09/24 04:00 05/09/24 04:18 60 MLS/HR Acetaminophen/ Hydrocodone Bitart 1 tab Q4HP PRN PO 05/09/24 04:00 05/09/24 04:40 1 TAB Ondansetron HCl 4 mg Q4HP PRN IV 05/09/24 04:00 Docusate Sodium 100 mg BIDPRN PRN PO 05/09/24 04:00 Acetaminophen 650 mg Q6HP PRN PO 05/09/24 04:00 Hydralazine HCl 10 mg Q6HP PRN IV 05/09/24 04:00 Losartan Potassium 50 mg DAILY PO 05/09/24 10:00 05/09/24 10:08 50 MG Nitroglycerin 0.4 mg Q5MINP PRN SL 05/09/24 05:00 Morphine Sulfate 2 mg Q30M PRN IV 05/09/24 05:00 Laboratory Results Laboratory Tests 05/09/24 04:20 Chemistry Test 05/08/24 22:18 05/09/24 04:20 Calcium Level 9.7 mg/dL (8.7-10.4) 8.8 mg/dL (8.7-10.4) Albumin 3.6 g/dL (3.2-4.8) Total Protein 6.0 g/dL (5.7-8.2) LFT Test 05/09/24 04:20 Alanine Aminotransferase (ALT) 13 U/L (7-40) Alkaline Phosphatase 111 U/L (46-116) Aspartate Amino Transferase (AST) 10 U/L (13-40) L Total Bilirubin 0.4 mg/dL (0.2-1.0) Assessment/Plan Assessment/Plan Abdominal pain Constipation HENRI HTN DM2 Leukocytosis PLAN: IV fluids Fleet enema Lactulose Colace IV antibiotics for possible colitis Discussed with son at the bedside Full code Advanced directives discussed x 15 minutes Plan discussed with: Patient, Son Date of Service: May 09, 2024 Billing Provider: LATISHA SANZ MD Common Visit Codes: [id number] INP/OBS CARE(HIGH) Secondary Visit Codes: [id number] CARE PLAN 30 MINUTES LATISHA SANZ MD May 09, 2024 14:07
[2024-05-09 16:45] VITALS: BP 152/60; PULSE 72; RESP 18; TEMP 98.4; O2SAT 93
[2024-05-09] MEDS: ATORVASTATIN 20 MG TAB PO SCH (21:11)
[2024-05-09 22:00] VITALS: BP 156/67; PULSE 76; RESP 18; TEMP 98.1; O2SAT 92
[2024-05-10 01:00] VITALS: BP 157/64; PULSE 74; RESP 18; TEMP 98.8; O2SAT 93
[2024-05-10 05:00] VITALS: BP 155/67; PULSE 77; RESP 18; TEMP 98.4; O2SAT 95
[2024-05-10 07:46] LABS: Basophils # (auto) 0.1 10 ^3/uL (0-0.2); Eosinophils # (auto) 0.2 10 ^3/uL (0-0.8); Eosinophils % (auto) 2.6 % (0.0-7.0); Hematocrit 34.5 % (36.0-46.0); Lymphocytes # (auto) 1.7 10 ^3/uL (0.4-5.4); Lymphocytes % (auto) 20.9 % (10.0-50.0); Mean Corpuscular Hemoglobin 29.3 pg (28.0-32.0); Mean Corpuscular Hgb Conc. 31.8 g/dL (32.0-36.0); Mean Corpuscular Volume 92.2 fL (80.0-100.0); Monocytes # (auto) 0.4 10 ^3/uL (0-1.3); Monocytes % (auto) 4.4 % (0.0-12.0); Neutrophils # (auto) 5.9 10 ^3/uL (1.6-8.6); Neutrophils % (auto) 71.1 % (37.0-80.0); Platelet Count (auto) 249 10^3/uL (140-450); Red Blood Cells 3.75 10^6/uL (4.0-5.20); Red Cell Distribution Width 13.9 % (11.8-14.3); White Blood Cell 8.3 10^3/uL (4.4-10.8)
[2024-05-10 08:05] LABS: Alanine Aminotransferase 12 U/L (7-40); Albumin 3.2 g/dL (3.2-4.8); Alkaline Phosphatase 100 U/L (46-116); Anion Gap 8 (5-15); Aspartate Aminotransferase 10 U/L (13-40); BUN/Creatinine Ratio 10.8 (10.0-20.0); Blood Urea Nitrogen 10 mg/dL (9-23); Calcium 8.6 mg/dL (8.7-10.4); Carbon Dioxide 20 mmol/L (20-31); Chloride 113 mmol/L (98-107); Glucose 225 mg/dL (74-106); Potassium 4.1 mmol/L (3.5-5.1); Sodium 141 mmol/L (136-145)
[2024-05-10 08:06] LABS: Bilirubin, Total 0.4 mg/dL (0.2-1.0); Total Protein 5.8 g/dL (5.7-8.2)
[2024-05-10 09:00] VITALS: BP 164/62; PULSE 79; RESP 18; TEMP 97.6; O2SAT 98
[2024-05-10] MEDS: cefTRIAXone 1GM/50ML D5W 50 ML IV SCH (11:08)
--- NOTE | 2024-05-10 11:28 | DVHPN2 ---
Subjective Still c/o lower abdominal pain pain with urination Complaining of rectal pain She had constipation for 6 days but she was given lactulose yesterday which resulted in several bowel movements last night Changes from previous H/P or p: Changes Eyes: No Pain, No Vision change, No Conjunctivae inflammation, No Eyelid inflammation, No Other, No Redness ENT: No Ear pain, No Ear discharge, No Nose pain, No Nose discharge, No Nose congestion, No Mouth pain, No Mouth swelling, No Throat pain, No Throat swelling, No Other Cardiovascular: No Chest Pain, No Palpitations, No Orthopnea, No Paroxysmal Noc. Dyspnea, No Edema, No Lt Headedness, No Other Respiratory: No Cough, No Dry, No Shortness of breath, No SOB with excertion, No Wheezing, No Hemoptysis, No Pleuritic Pain, No Sputum, No Other Gastrointestinal: No Nausea, No Vomiting; Abdominal Pain; No Diarrhea; C onstipation; No Melena, No Hematochezia; Other (Rectal pain) Genitourinary: No Dysuria, No Frequency, No Incontinence, No Hematuria, No Retention, No Other Musculoskeletal: No other, No neck pain, No shoulder pain, No arm pain, No back pain, No hand pain, No leg pain, No foot pain Skin: No Rash, No Lesions, No Jaundice, No Bruising, No Other Objective Vitals Vital Signs Date Time Temp Pulse Resp B/P (MAP) Pulse Ox O2 Delivery O2 Flow Rate FiO2 05/10/24 11:15 164/62 05/10/24 09:00 97.6 79 18 98 97.6 05/10/24 08:17 Room Air* 0 21 Intake/Output Intake and Output 05/10/24 07:00 Intake Total 1645 ml Balance 1645 ml Intake Oral 1025 ml IV Total 620 ml # Voids 8 General Appearance: Alert, Oriented X3, Cooperative Lungs: Clear to auscultation, Normal air movement Cardiovascular: Regular rate, Normal S1, Normal S2 Abdomen: Normal bowel sounds, Soft, Other (+Tenderness in lower abdomen) Extremities: No edema Medications Current Medications Medications Dose Ordered Sig/Jayjay Route Start Time Stop Time Status Last Admin Dose Admin Metronidazole 100 ml @ 100 mls/hr Q8HR IV 05/09/24 06:00 05/10/24 06:37 100 MLS/HR Ceftriaxone Sodium 50 ml @ 100 mls/hr DAILY@09 IV 05/10/24 09:00 05/10/24 11:08 100 MLS/HR Aspirin 81 mg DAILY PO 05/09/24 10:00 05/10/24 11:15 81 MG Atorvastatin Calcium 20 mg HS PO 05/09/24 22:00 05/09/24 21:20 20 MG Diagnostic Test (Pha) 1 strip ACHS 05/09/24 07:00 05/10/24 06:37 1 STRIP Insulin Human Regular HS SC 05/09/24 22:00 05/09/24 21:32 6 UNITS Insulin Human Regular AC SC 05/09/24 07:00 05/10/24 06:39 6 UNITS Dextrose 50 ml UD PRN IV 05/09/24 04:00 Sodium Chloride 1,000 ml @ 60 mls/hr [id number] IV 05/09/24 04:00 05/09/24 21:20 60 MLS/HR Acetaminophen/ Hydrocodone Bitart 1 tab Q4HP PRN PO 05/09/24 04:00 05/10/24 08:01 1 TAB Ondansetron HCl 4 mg Q4HP PRN IV 05/09/24 04:00 Docusate Sodium 100 mg BIDPRN PRN PO 05/09/24 04:00 Acetaminophen 650 mg Q6HP PRN PO 05/09/24 04:00 Hydralazine HCl 10 mg Q6HP PRN IV 05/09/24 04:00 Losartan Potassium 50 mg DAILY PO 05/09/24 10:00 05/10/24 11:15 50 MG Nitroglycerin 0.4 mg Q5MINP PRN SL 05/09/24 05:00 Morphine Sulfate 2 mg Q30M PRN IV 05/09/24 05:00 Laboratory Results Laboratory Tests 05/10/24 06:50 Chemistry Test 05/10/24 06:50 Albumin 3.2 g/dL (3.2-4.8) Calcium Level 8.6 mg/dL (8.7-10.4) L Magnesium Level 2.2 mg/dL (1.6-2.6) Total Protein 5.8 g/dL (5.7-8.2) LFT Test 05/10/24 06:50 Alanine Aminotransferase (ALT) 12 U/L (7-40) Alkaline Phosphatase 100 U/L (46-116) Aspartate Amino Transferase (AST) 10 U/L (13-40) L Total Bilirubin 0.4 mg/dL (0.2-1.0) Assessment/Plan Assessment/Plan Abdominal pain Constipation HENRI HTN DM2 Leukocytosis PLAN: 05/09/2024: IV fluids Fleet enema Lactulose Colace IV antibiotics for possible colitis Discussed with son at the bedside Full code Advanced directives discussed x 15 minutes 05/10/2024: Abdominal pain and Constipation: GI consult Dysuria and lower abdominal pain: Get a bladder scan and Lerner catheter Urinalysis IV fluids IV Rocephin and Flagyl Plan discussed with: Patient My Orders Orders - LATISHA SANZ MD Procedure Category Date Status Time Urinalysis LAB 05/10/24 Uncollected 11:22 Insert Lerner Catheter WILMA 05/10/24 Verified 11:22 Date of Service: May 10, 2024 Billing Provider: LATISHA SANZ MD Common Visit Codes: [id number] INP/OBS CARE(HIGH) LATISHA SANZ MD May 10, 2024 11:28
[2024-05-10 12:30] VITALS: BP 160/63; PULSE 86; RESP 19; TEMP 97.9; O2SAT 97
[2024-05-10 16:30] VITALS: BP 148/53; PULSE 68; RESP 17; TEMP 97.9; O2SAT 97
[2024-05-10] MEDS: PANTOPRAZOLE 40 MG/10 ML VIAL INJ IV ONE (17:56)
[2024-05-10 18:33] LABS: Urine Bacteria None Seen /hpf (None Seen)
[2024-05-10 18:42] LABS: Urine Blood TRACE /uL (Negative); Urine Clarity Clear (Clear); Urine Color Light-Yellow (Yellow); Urine Protein, UAD 2+ (Negative); Urine Specific Gravity 1.023 (1.001-1.035); Urine Urobilinogen Normal (Negative); Urine WBC 3 /hpf (0 - 5); Urine pH 5.5 (5.0-9.0)
--- NOTE | 2024-05-10 20:35 | DVHINCON2 ---
Date of service: May 10, [address] Mata Reason for Consultation Constipation and rectal pain History of Present Illness The patient is a 58-year-old female with past medical history of anxiety, depression, DM, hyperlipidemia, and hypertension who presented to [facility] ED with complaint of abdominal pain. Patient reports symptoms progressively get worse with constipation for the past five days, rectal pain, getting worse that prompted this visit. She was given lactulose yesterday which resulted in several bowel movements last night. Patient was started on IV antibiotic regimen Flagyl Past Medical History Past Medical History Anxiety, Depression, DM, High Lipids, HTN, obesity Past Surgical History Past Surgical History Hysterectomy Family History: Cancer G8 MOTHER Family history: Diabetes mellitus G8 MOTHER G8 FATHER Allergies: Coded Allergies: Avocado (Verified Allergy, Unknown, 09/04/23) Morphine (Verified Allergy, Unknown, 09/04/23) Tramadol (Verified Allergy, Unknown, 09/04/23) Home Meds Reported Medications Metformin HCl (Metformin Hydrochloride) 1,000 Mg Tab, 1 TAB PO BID for DIABETES HOLD FOR 2 DAYS - MAY RESUME ON SATURDAY MORNING 09/07/23 09/05/23 Enalapril Maleate (VASOTEC TABLET) 2.5 Mg Tb, 1 MG PO DAILY for HYPERTENSION 09/04/23 Aspirin (Aspir-Low) 81 Mg Tab, 1 TAB PO DAILY for HEART ATTACK PREVENTION 09/04/23 Semaglutide (Ozempic) 2 Mg/3 Ml Inj, 1 MG SC QWEEKLY for DIABETES ON Saturday09/04/23 Cholecalciferol (VITAMIN D3) 2,000 Unit Tab, 1 TAB PO DAILY for SUPPLEMENT 09/04/23 Losartan Potassium (Losartan Potassium) 50 Mg Tab, 1 TAB PO DAILY for HYPERTENSION 09/04/23 Insulin Glargine (Basaglar Kwikpen) 100 Unit/Ml Inj, UNITS SC HS PRN for PER DIABETIC SLIDING SCALE 09/04/23 Furosemide (Lasix) 20 Mg Tb, 1 TAB PO DAILY for EDEMA 09/04/23 Atorvastatin Calcium (ATORVASTATIN CALCIUM) 40 Mg Tab, 1 TAB PO HS for HIGH CHOLESTEROL 01/02/17 Current Medications Current Medications Medications (Trade) Dose Ordered Sig/Jayjay Route PRN Reason Start Time Stop Time Status Last Admin Ceftriaxone Sodium 50 ml @ 100 mls/hr DAILY@09 IV 05/10/24 09:00 05/10/24 11:08 Atorvastatin Calcium (Lipitor) 20 mg HS PO 05/09/24 22:00 05/09/24 21:20 Insulin Human Regular (InsuLIN R) HS SC 05/09/24 22:00 05/09/24 21:32 Pantoprazole Sodium (Protonix) 40 mg DAILY IV 05/11/24 10:00 Vital Signs Vital Signs Date Time Temp Pulse Resp B/P (MAP) Pulse Ox O2 Delivery O2 Flow Rate FiO2 05/10/24 16:30 97.9 68 17 148/53 (84) 97 97.9 05/10/24 08:17 Room Air* 0 21 Physical Exam General Appearance: Alert, Oriented X3, Cooperative Lungs: Clear to auscultation, Normal air movement Cardiovascular: Regular rate, Normal S1, Normal S2 Abdomen: Normal bowel sounds, Soft, Other (+Tenderness in lower abdomen) Extremities: No edema Labs/Diagnostic Data Labs Test 05/10/24 17:50 05/10/24 17:44 05/10/24 06:50 Range/Units Urine Color Light-yellow Yellow Urine Clarity Clear Clear Urine pH 5.5 5.0-9.0 Urine Specific [place] 1.023 1.001-1.035 Urine Protein 2+ H Negative Urine Ketones Negative Negative Urine Blood Trace H Negative /uL Urine Nitrite Negative Negative Urine Bilirubin Negative Negative Urine Urobilinogen Normal Negative mg/dL Urine Leukocyte Esterase Negative Negative /uL Urine RBC 2 0 - 4 /hpf Urine WBC 3 0 - 5 /hpf Urine Squamous Epithelial Cells Few <5 /hpf Urine Bacteria None seen None Seen /hpf Urine Glucose 4+ H Normal mg/dL POC Glucose 294 H 70-106 mg/dl White Blood Count 8.3 # 4.4-10.8 10^3/uL Red Blood Count 3.75 L 4.0-5.20 10^6/uL Hemoglobin 11.0 L 12.2-16.2 g/dL Hematocrit 34.5 L 36.0-46.0 % Mean Corpuscular Volume 92.2 80.0-100.0 fL Mean Corpuscular Hemoglobin 29.3 28.0-32.0 pg Mean Corpuscular Hemoglobin Concent 31.8 L 32.0-36.0 g/dL Red Cell Distribution Width 13.9 11.8-14.3 % Platelet Count 249 140-450 10^3/uL Mean Platelet Volume 7.8 6.9-10.8 fL Neutrophils (%) (Auto) 71.1 37.0-80.0 % Lymphocytes (%) (Auto) 20.9 10.0-50.0 % Monocytes (%) (Auto) 4.4 0.0-12.0 % Eosinophils (%) (Auto) 2.6 0.0-7.0 % Basophils (%) (Auto) 1.0 0.0-2.0 % Neutrophils # (Auto) 5.9 1.6-8.6 10 ^3/uL Lymphocytes # (Auto) 1.7 0.4-5.4 10 ^3/uL Monocytes # (Auto) 0.4 0-1.3 10 ^3/uL Eosinophils # (Auto) 0.2 0-0.8 10 ^3/uL Basophils # (Auto) 0.1 0-0.2 10 ^3/uL Nucleated Red Blood Cells 0.0 % Sodium Level 141 136-145 mmol/L Potassium Level 4.1 3.5-5.1 mmol/L Chloride Level 113 H 98-107 mmol/L Carbon Dioxide Level 20 20-31 mmol/L Anion Gap 8 5-15 Blood Urea Nitrogen 10 9-23 mg/dL Creatinine 0.93 0.550-1.02 mg/dL Glomerular Filtration Rate Calc 71 >90 mL/min BUN/Creatinine Ratio 10.8 10.0-20.0 Serum Glucose 225 H 74-106 mg/dL Calcium Level 8.6 L 8.7-10.4 mg/dL Magnesium Level 2.2 1.6-2.6 mg/dL Total Bilirubin 0.4 0.2-1.0 mg/dL Aspartate Amino Transferase (AST) 10 L 13-40 U/L Alanine Aminotransferase (ALT) 12 7-40 U/L Alkaline Phosphatase 100 46-116 U/L Total Protein 5.8 5.7-8.2 g/dL Albumin 3.2 3.2-4.8 g/dL CT ABD PELVIS IMPRESSION: Free air within the urinary bladder. Correlate with recent instrumentation, otherwise this may be due to an infectious process. Increased attenuation along the anterior abdominal wall subcutaneous tissue just superior to the umbilicus which may be from prior trauma versus infection. Ectopic right kidney located in the right lower abdomen. Problems(with codes): (1) Rectal pain (2) Constipation (3) Intractable abdominal pain Plan/Recommendation Plan Continue stool softeners Lactulose 30 mL p.o. daily or as needed MiraLax 17 g p.o. daily or as needed Xylocaine ointment for her perianal rectal pain Patient is on IV antibiotics ; Rocephin and Flagyl UA urine culture, Lerner catheter Elective colonoscopy advised possibly as an outpatient once medically stabilized Plan discussed with: Patient SLICK VARGAS MD May 10, 2024 20:35
[2024-05-10] MEDS ORDERED: LIDOCAINE HCL 5 % TOP OINT 35 GM TOP ONE (20:45)
[2024-05-10 22:00] VITALS: BP_SYST 151; BP_SYST 96; BP_DIAS 151; BP_DIAS 65; PULSE 77; RESP 17; TEMP 98.8; O2SAT 17; O2SAT 96
[2024-05-11] VITALS (7 sets, daily range): BP systolic 133–175; BP diastolic 53–70; PULSE 67–79; RESP 16–18; TEMP 97.9–98.5; O2SAT 95–98
[2024-05-11] MEDS ORDERED: GABA-339 PO (00:17)
[2024-05-11] MEDS: GABAPENTIN 100 MG CAP PO ONE (01:56)
[2024-05-11 07:44] LABS: Basophils # (auto) 0.1 10 ^3/uL (0-0.2); Basophils % (auto) 1.2 % (0.0-2.0); Eosinophils # (auto) 0.2 10 ^3/uL (0-0.8); Eosinophils % (auto) 2.6 % (0.0-7.0); Hematocrit 34.1 % (36.0-46.0); Hemoglobin 11.2 g/dL (12.2-16.2); Lymphocytes # (auto) 1.9 10 ^3/uL (0.4-5.4); Lymphocytes % (auto) 24.3 % (10.0-50.0); Mean Corpuscular Hemoglobin 29.6 pg (28.0-32.0); Mean Corpuscular Hgb Conc. 32.9 g/dL (32.0-36.0); Monocytes # (auto) 0.4 10 ^3/uL (0-1.3); Monocytes % (auto) 4.6 % (0.0-12.0); Neutrophils # (auto) 5.1 10 ^3/uL (1.6-8.6); Neutrophils % (auto) 67.3 % (37.0-80.0); Nucleated Red Blood Cells % 0.1 %; Platelet Count (auto) 263 10^3/uL (140-450); Red Blood Cells 3.79 10^6/uL (4.0-5.20); Red Cell Distribution Width 13.9 % (11.8-14.3); White Blood Cell 7.6 10^3/uL (4.4-10.8)
[2024-05-11 07:47] LABS: Chloride 111 mmol/L (98-107); Potassium 4.1 mmol/L (3.5-5.1); Sodium 141 mmol/L (136-145)
[2024-05-11 07:48] LABS: Anion Gap 6 (5-15); Carbon Dioxide 24 mmol/L (20-31)
[2024-05-11 07:53] LABS: BUN/Creatinine Ratio 13.7 (10.0-20.0); Blood Urea Nitrogen 13 mg/dL (9-23); Glucose 238 mg/dL (74-106)
[2024-05-11] MEDS: PANTOPRAZOLE 40 MG/10 ML VIAL INJ IV SCH (09:13)
--- NOTE | 2024-05-11 11:17 | DVHPN2 ---
Subjective Doing better She says she has no pain right now She had some pain in the morning but not anymore No more bowel movements Changes from previous H/P or p: Changes Eyes: No Pain, No Vision change, No Conjunctivae inflammation, No Eyelid inflammation, No Other, No Redness ENT: No Ear pain, No Ear discharge, No Nose pain, No Nose discharge, No Nose congestion, No Mouth pain, No Mouth swelling, No Throat pain, No Throat swelling, No Other Cardiovascular: No Chest Pain, No Palpitations, No Orthopnea, No Paroxysmal Noc. Dyspnea, No Edema, No Lt Headedness, No Other Respiratory: No Cough, No Dry, No Shortness of breath, No SOB with excertion, No Wheezing, No Hemoptysis, No Pleuritic Pain, No Sputum, No Other Gastrointestinal: No Nausea, No Vomiting; Abdominal Pain; No Diarrhea; C onstipation; No Melena, No Hematochezia; Other (Rectal pain) Genitourinary: No Dysuria, No Frequency, No Incontinence, No Hematuria, No Retention, No Other Musculoskeletal: No other, No neck pain, No shoulder pain, No arm pain, No back pain, No hand pain, No leg pain, No foot pain Skin: No Rash, No Lesions, No Jaundice, No Bruising, No Other Objective Vitals Vital Signs Date Time Temp Pulse Resp B/P (MAP) Pulse Ox O2 Delivery O2 Flow Rate FiO2 05/11/24 09:14 151/76 05/11/24 08:00 98.2 69 18 97 98.2 05/11/24 08:00 Room Air* 0 21 Intake/Output Intake and Output 05/11/24 07:00 Intake Total 1570 ml Output Total 800 ml Balance 770 ml Intake Oral 1080 ml IV Total 490 ml Output Urine Total 800 ml # Voids 4 General Appearance: Alert, Oriented X3, Cooperative Lungs: Clear to auscultation, Normal air movement Cardiovascular: Regular rate, Normal S1, Normal S2 Abdomen: Normal bowel sounds, Soft, Other (+Tenderness in lower abdomen) Extremities: No edema Medications Current Medications Medications Dose Ordered Sig/Jayjay Route Start Time Stop Time Status Last Admin Dose Admin Metronidazole 100 ml @ 100 mls/hr Q8HR IV 05/09/24 06:00 05/11/24 06:56 100 MLS/HR Ceftriaxone Sodium 50 ml @ 100 mls/hr DAILY@09 IV 05/10/24 09:00 05/11/24 09:13 100 MLS/HR Aspirin 81 mg DAILY PO 05/09/24 10:00 05/11/24 09:13 81 MG Atorvastatin Calcium 20 mg HS PO 05/09/24 22:00 05/10/24 21:25 20 MG Diagnostic Test (Pha) 1 strip ACHS 05/09/24 07:00 05/11/24 06:47 1 STRIP Insulin Human Regular HS SC 05/09/24 22:00 05/10/24 21:37 4 UNITS Insulin Human Regular AC SC 05/09/24 07:00 05/11/24 06:53 6 UNITS Dextrose 50 ml UD PRN IV 05/09/24 04:00 Sodium Chloride 1,000 ml @ 60 mls/hr [id number] IV 05/09/24 04:00 05/10/24 21:31 60 MLS/HR Acetaminophen/ Hydrocodone Bitart 1 tab Q4HP PRN PO 05/09/24 04:00 05/11/24 05:45 1 TAB Ondansetron HCl 4 mg Q4HP PRN IV 05/09/24 04:00 Docusate Sodium 100 mg BIDPRN PRN PO 05/09/24 04:00 Acetaminophen 650 mg Q6HP PRN PO 05/09/24 04:00 Hydralazine HCl 10 mg Q6HP PRN IV 05/09/24 04:00 Losartan Potassium 50 mg DAILY PO 05/09/24 10:00 05/11/24 09:14 50 MG Nitroglycerin 0.4 mg Q5MINP PRN SL 05/09/24 05:00 Morphine Sulfate 2 mg Q30M PRN IV 05/09/24 05:00 Pantoprazole Sodium 40 mg DAILY IV 05/11/24 10:00 05/11/24 09:13 40 MG Laboratory Results Laboratory Tests 05/11/24 07:16 Chemistry Test 05/11/24 07:16 Calcium Level 9.0 mg/dL (8.7-10.4) Magnesium Level 2.0 mg/dL (1.6-2.6) Urinalysis Test 05/10/24 17:50 Urine Color Light-yellow (Yellow) Urine Clarity Clear (Clear) Urine pH 5.5 (5.0-9.0) Urine Specific [place] 1.023 (1.001-1.035) Urine Protein 2+ (Negative) H Urine Ketones Negative (Negative) Urine Blood Trace /uL (Negative) H Urine Nitrite Negative (Negative) Urine Bilirubin Negative (Negative) Urine Urobilinogen Normal mg/dL (Negative) Urine Leukocyte Esterase Negative /uL (Negative) Urine RBC 2 /hpf (0 - 4) Urine WBC 3 /hpf (0 - 5) Urine Squamous Epithelial Cells Few /hpf (<5) Urine Bacteria None seen /hpf (None Seen) Urine Glucose 4+ mg/dL (Normal) H Assessment/Plan Assessment/Plan Abdominal pain Constipation HENRI HTN DM2 Leukocytosis PLAN: 05/09/2024: IV fluids Fleet enema Lactulose Colace IV antibiotics for possible colitis Discussed with son at the bedside Full code Advanced directives discussed x 15 minutes 05/10/2024: Abdominal pain and Constipation: GI consult Dysuria and lower abdominal pain: Get a bladder scan and Lerner catheter Urinalysis IV fluids IV Rocephin and Flagyl 05/11/2024: Lactulose p.r.n. for the constipation MiraLax Colace Discontinue Lerner Physical therapy Out of bed as tolerated Discontinue the IV fluids Plan discussed with: Patient My Orders Orders - LATISHA SANZ MD Procedure Category Date Status Time Bladder Scan ED NURSING 05/10/24 Transmitted Pantoprazole PHA 05/11/24 In Process (Protonix) 10:00 * Gi D[facility] Eligibility Supervisor CONS 05/10/24 Transmitted 11:45 Pt Request For Service PT 05/11/24 Transmitted 11:14 D/C Lerner WILMA 05/11/24 Transmitted 11:14 Lactulose Oral PHA 05/11/24 Transmitted 11:15 Docusate Sodium PHA 05/11/24 Transmitted Capsule (Colace 11:15 Docusate Sodium PHA 05/11/24 Transmitted Capsule (Colace 22:00 Basic Metabolic Panel LAB 05/12/24 Verified 04:00 Magnesium LAB 05/12/24 Verified 04:00 Date of Service: May 11, 2024 Billing Provider: LATISHA SANZ MD Common Visit Codes: [id number] INP/OBS CARE(HIGH) LATISHA SANZ MD May 11, 2024 11:17
[2024-05-11] MEDS: DOCUSATE SOD 100 MG CAP PO ONE (13:13)
[2024-05-11] MEDS: LACTULOSE 20Gm/30ML SOLN PO ONE (13:13)
[2024-05-11] MEDS: POLYETHYLENE GLYCOL 17 GM PWDR PO ONE (13:13)
[2024-05-11] MEDS: hydrALAZINE HCL 20 MG/ML VL IV PRN (13:14)
[2024-05-11] MEDS: cloNIDine HCL 0.1 MG TAB PO ONE (17:39)
--- NOTE | 2024-05-11 19:52 | DVHPN2 ---
Progress Note - Dictate Date Seen: May 11, 2024 Medical Necessity Reason Pt with a Central, PICC or Fol: No Subjective Pt feels better No N/v diarrhoea abd or rectal pain BS running high vital signs Vital Sign Date Time Temp Pulse Resp B/P (MAP) Pulse Ox O2 Delivery O2 Flow Rate FiO2 05/11/24 19:36 163/61 05/11/24 16:00 98.5 75 18 96 98.5 05/11/24 08:00 Room Air* 0 21 Total Intake and Output 05/10/24 05/10/24 05/11/24 15:00 23:00 07:00 Intake Total 200 ml 870 ml 500 ml Output Total 800 ml Balance 200 ml 870 ml -300 ml medications Current Medications Medications Dose Ordered Sig/Jayjay Route Start Time Stop Time Status Last Admin Dose Admin Metronidazole 100 ml @ 100 mls/hr Q8HR IV 05/09/24 06:00 05/11/24 13:13 100 MLS/HR Ceftriaxone Sodium 50 ml @ 100 mls/hr DAILY@09 IV 05/10/24 09:00 05/11/24 09:13 100 MLS/HR Aspirin 81 mg DAILY PO 05/09/24 10:00 05/11/24 09:13 81 MG Atorvastatin Calcium 20 mg HS PO 05/09/24 22:00 05/10/24 21:25 20 MG Diagnostic Test (Pha) 1 strip ACHS 05/09/24 07:00 05/11/24 17:28 1 STRIP Insulin Human Regular HS SC 05/09/24 22:00 05/10/24 21:37 4 UNITS Insulin Human Regular AC SC 05/09/24 07:00 05/11/24 17:28 15 UNITS Dextrose 50 ml UD PRN IV 05/09/24 04:00 Acetaminophen/ Hydrocodone Bitart 1 tab Q4HP PRN PO 05/09/24 04:00 05/11/24 15:32 1 TAB Ondansetron HCl 4 mg Q4HP PRN IV 05/09/24 04:00 Acetaminophen 650 mg Q6HP PRN PO 05/09/24 04:00 Hydralazine HCl 10 mg Q6HP PRN IV 05/09/24 04:00 05/11/24 13:14 10 MG Losartan Potassium 50 mg DAILY PO 05/09/24 10:00 05/11/24 09:14 50 MG Nitroglycerin 0.4 mg Q5MINP PRN SL 05/09/24 05:00 Morphine Sulfate 2 mg Q30M PRN IV 05/09/24 05:00 Pantoprazole Sodium 40 mg DAILY IV 05/11/24 10:00 05/11/24 09:13 40 MG Docusate Sodium 100 mg BID PO 05/11/24 22:00 Polyethylene Glycol 17 gm DAILY PO 05/12/24 10:00 objective General Appearance: Alert, Oriented X3, Cooperative Lungs: Clear to auscultation, Normal air movement Cardiovascular: Regular rate, Normal S1, Normal S2 Abdomen: Normal bowel sounds, Soft, Extremities: No edema laboratory and microbiology Laboratory Tests 05/11/24 07:16 Test 05/11/24 07:16 Range/Units Serum Glucose 238 H 74-106 mg/dL Problems(with codes): (1) Constipation (2) Rectal pain (3) Uncontrolled diabetes mellitus with circulatory complication Prognosis Plan Continue stool softeners Lactulose 30 mL p.o. daily or as needed MiraLax 17 g p.o. daily or as needed Xylocaine ointment for her perianal rectal pain Patient is on IV antibiotics ; Rocephin and Flagyl UA urine culture, Lerner catheter;advance DICKSON Elective colonoscopy advised possibly as an outpatient once medically stabilized Plan discussed with: Patient SLICK VARGAS MD May 11, 2024 19:52
[2024-05-11] MEDS: DOCUSATE SOD 100 MG CAP PO SCH (21:49)
[2024-05-12 01:00] VITALS: BP 137/57; PULSE 62; RESP 18; TEMP 98.2; O2SAT 97
[2024-05-12 04:52] VITALS: BP 155/59; PULSE 68; RESP 18; TEMP 98.2; O2SAT 95
[2024-05-12 07:37] LABS: Chloride 112 mmol/L (98-107); Potassium 4.6 mmol/L (3.5-5.1); Sodium 141 mmol/L (136-145)
[2024-05-12 07:38] LABS: Anion Gap 7 (5-15); Calcium 9.2 mg/dL (8.7-10.4); Carbon Dioxide 22 mmol/L (20-31)
[2024-05-12 07:43] LABS: Blood Urea Nitrogen 12 mg/dL (9-23); Glucose 188 mg/dL (74-106)
[2024-05-12 07:44] LABS: Magnesium 2.3 mg/dL (1.6-2.6)
[2024-05-12 08:00] VITALS: O2SAT 95
[2024-05-12 09:00] VITALS: BP 169/66; PULSE 81; RESP 18; TEMP 97.9; O2SAT 97
[2024-05-12] MEDS: POLYETHYLENE GLYCOL 17 GM PWDR PO SCH (09:27)
[2024-05-12 13:00] VITALS: BP 148/43; PULSE 77; RESP 20; TEMP 97.9; O2SAT 93
[2024-05-12] MEDS ORDERED: POLY335015 PO (13:49)
[2024-05-12 14:17] VITALS: BP 155/72
--- NOTE | 2024-05-12 15:42 | DVHDS2 ---
Discharge Summary Date of Admission May 09, 2024 at 04:56 Date of Discharge: May 12, 2024 Labs/Diagnostic Data: Laboratory Results Test 05/12/24 06:22 05/11/24 07:16 05/10/24 17:50 05/10/24 06:50 Sodium Level 141 mmol/L (136-145) Potassium Level 4.6 mmol/L (3.5-5.1) Chloride Level 112 mmol/L (98-107) Carbon Dioxide Level 22 mmol/L (20-31) Anion Gap 7 (5-15) Blood Urea Nitrogen 12 mg/dL (9-23) Creatinine 0.92 mg/dL (0.550-1.02) Glomerular Filtration Rate Calc 72 mL/min (>90) BUN/Creatinine Ratio 13.0 (10.0-20.0) Serum Glucose 188 mg/dL (74-106) POC Glucose 203 mg/dl (70-106) Calcium Level 9.2 mg/dL (8.7-10.4) Magnesium Level 2.3 mg/dL (1.6-2.6) White Blood Count 7.6 10^3/uL (4.4-10.8) Red Blood Count 3.79 10^6/uL (4.0-5.20) Hemoglobin 11.2 g/dL (12.2-16.2) Hematocrit 34.1 % (36.0-46.0) Mean Corpuscular Volume 90.0 fL (80.0-100.0) Mean Corpuscular Hemoglobin 29.6 pg (28.0-32.0) Mean Corpuscular Hemoglobin Concent 32.9 g/dL (32.0-36.0) Red Cell Distribution Width 13.9 % (11.8-14.3) Platelet Count 263 10^3/uL (140-450) Mean Platelet Volume 7.5 fL (6.9-10.8) Neutrophils (%) (Auto) 67.3 % (37.0-80.0) Lymphocytes (%) (Auto) 24.3 % (10.0-50.0) Monocytes (%) (Auto) 4.6 % (0.0-12.0) Eosinophils (%) (Auto) 2.6 % (0.0-7.0) Basophils (%) (Auto) 1.2 % (0.0-2.0) Neutrophils # (Auto) 5.1 10 ^3/uL (1.6-8.6) Lymphocytes # (Auto) 1.9 10 ^3/uL (0.4-5.4) Monocytes # (Auto) 0.4 10 ^3/uL (0-1.3) Eosinophils # (Auto) 0.2 10 ^3/uL (0-0.8) Basophils # (Auto) 0.1 10 ^3/uL (0-0.2) Nucleated Red Blood Cells 0.1 % Urine Color Light-yellow (Yellow) Urine Clarity Clear (Clear) Urine pH 5.5 (5.0-9.0) Urine Specific [place] 1.023 (1.001-1.035) Urine Protein 2+ (Negative) Urine Ketones Negative (Negative) Urine Blood Trace /uL (Negative) Urine Nitrite Negative (Negative) Urine Bilirubin Negative (Negative) Urine Urobilinogen Normal mg/dL (Negative) Urine Leukocyte Esterase Negative /uL (Negative) Urine RBC 2 /hpf (0 - 4) Urine WBC 3 /hpf (0 - 5) Urine Squamous Epithelial Cells Few /hpf (<5) Urine Bacteria None seen /hpf (None Seen) Urine Glucose 4+ mg/dL (Normal) Total Bilirubin 0.4 mg/dL (0.2-1.0) Aspartate Amino Transferase (AST) 10 U/L (13-40) Alanine Aminotransferase (ALT) 12 U/L (7-40) Alkaline Phosphatase 100 U/L (46-116) Total Protein 5.8 g/dL (5.7-8.2) Albumin 3.2 g/dL (3.2-4.8) Other Laboratory Tests 05/12/24 06:22 05/11/24 07:16 Brief Hx & Hospital Course: 58-year-old female who was admitted for abdominal pain and was found to have constipation. She apparently did not have bowel movement for 6 days and therefore she was given laxatives here which helped her. She had several bowel movements afterwards Today her abdominal pain is better She is tolerating her diet and there is no nausea or vomiting She was also given MiraLax Discharge home today on MiraLax 17 g daily Resume other home medications She was educated about diet and exercise and increase her fiber intake Final diagnoses: Abdominal pain due to constipation Constipation HENRI HTN DM2 Leukocytosis Condition at Discharge: Stable Final Diagnosis/Problems List Constipation Discharge Disposition: Home SNF Discharge Will this Physician continue t: No Discharge Instruct/Medications Diet: Cardiac 2g Na,low cholest Activity: No Restrictions, As Tolerated Follow Up/Referral: PCP DEEPA Medications: Mieralax 17 gm po daily Resume home meds Discharge Statement: "Patient was advised to return to the ER or call 911 if any headaches, dizziness, shortness of breath, chest pain, abdominal pain, bleeding, fevers, or worsening of medical condition. Patient was counseled about treatment plan, medications, possible side effects, patientverbalized understanding. All questions were answered to the best of my ability. This discharge took greater then 30 minutes in planning, reviewing documentation, counseling the patient, and discussing with other team members." ASSESSMENT ASSESSMENT Assessment Constipation Date of Service: May 12, 2024 Billing Provider: LATISHA SANZ MD Common Visit Codes: [id number] DISCH DAY >30min LATISHA SANZ MD May 12, 2024 15:42
--- NOTE | 2024-05-12 19:58 | DVHPN2 ---
Progress Note - Dictate Date Seen: May 12, 2024 (Late entry patient seen at 2:00 p.m.) Medical Necessity Reason Pt with a Central, PICC or Fol: No Subjective Pt feels better No N/v diarrhoea abd or rectal pain Abdominal pain improved after she had bowel movements vital signs Vital Sign Date Time Temp Pulse Resp B/P (MAP) Pulse Ox O2 Delivery O2 Flow Rate FiO2 05/12/24 13:00 97.9 77 20 148/43 (78) 93 97.9 05/12/24 08:00 Room Air* 0 21 Total Intake and Output 05/11/24 05/11/24 05/12/24 15:00 23:00 07:00 Intake Total 150 ml 900 ml 600 ml Output Total 450 ml Balance -300 ml 900 ml 600 ml objective General Appearance: Alert, Oriented X3, Cooperative Lungs: Clear to auscultation, Normal air movement Cardiovascular: Regular rate, Normal S1, Normal S2 Abdomen: Normal bowel sounds, Soft, Extremities: No edema laboratory and microbiology Laboratory Tests 05/12/24 06:22 05/11/24 07:16 Test 05/12/24 06:22 Range/Units Serum Glucose 188 H 74-106 mg/dL Problems(with codes): (1) Rectal pain (2) Constipation (3) Acute abdominal pain Prognosis Plan Advance diet as tolerated Discharge planning is in progress Patient will take lactulose or MiraLax as needed constipation Maintained on stool softeners Increase fluid and fiber intake Outpatient follow up with me to discuss elective colonoscopy Plan discussed with: Patient SLICK VARGAS MD May 12, 2024 19:58
== END 2024-05-12 15:16 | disposition home or self-care (01) | DRG 391 ==
LOC: ER 21:43 → EDBD 21:43 → EDSEX 21:43 → OVERFLOW 05-09 04:56 → WEST WING 05-09 14:57
PROVIDERS: ADMIT Internal Medicine Geriatric Medicine; ATTEND Internal Medicine Geriatric Medicine
DX: K59.00 Constipation, unspecified (principal); N17.0 Acute kidney failure with tubular necrosis; E11.65 Type 2 diabetes mellitus with hyperglycemia; I10 Essential (primary) hypertension; E78.5 Hyperlipidemia, unspecified; F41.9 Anxiety disorder, unspecified; F32.A Depression, unspecified; Z88.5 Allergy status to narcotic agent; Z90.710 Acquired absence of both cervix and uterus; Z83.3 Family history of diabetes mellitus
CPT/HCPCS: 36415; 80048; 80053; 81001; 82962; 83735; 85025; 96361; 96365; 96375; 97110; 97116; 97163; 97530; 99291; G0378; J0692; J1815; J2405; J2470; J3490

== ENCOUNTER → 2024-11-10 | Outpatient (CLI) | payer OTHER, MEDICAID ==
[~2024-11-10] MED LIST changes: +GABA-339 PO; +POLY335015 PO
== END | disposition home or self-care (01) ==
LOC: Rad HDHVI 10:37
PROVIDERS: ATTEND Internal Medicine Cardiovascular Disease
DX: I11.0 Hypertensive heart disease with heart failure (principal); I50.9 Heart failure, unspecified
CPT/HCPCS: 93306

== ENCOUNTER → 2024-11-23 | Outpatient (CLI) | payer OTHER, MEDICAID ==
[~2024-11-23] VITALS: Ht 152.4 cm; Wt 84.4 kg
[~2024-11-23] MED LIST changes: +ADENOSINE 71 MG in GIVE UN-DILUTED 0 ML IV ONE; +ADENOSINE 90 MG/30 ML INJ IV ONE
== END | disposition home or self-care (01) ==
LOC: Rad HDHVI 09:57
PROVIDERS: ATTEND Internal Medicine Cardiovascular Disease
DX: Z13.6 Encounter for screening for cardiovascular disorders (principal); I11.0 Hypertensive heart disease with heart failure; I50.33 Acute on chronic diastolic (congestive) heart failure; E11.40 Type 2 diabetes mellitus with diabetic neuropathy, unspecified; E11.21 Type 2 diabetes mellitus with diabetic nephropathy; E78.00 Pure hypercholesterolemia, unspecified; I73.9 Peripheral vascular disease, unspecified; Z82.49 Family history of ischemic heart disease and other diseases of the circulatory system; Z88.5 Allergy status to narcotic agent
CPT/HCPCS: 78452; 93017; A9500; J0153

== ENCOUNTER 2025-01-14 10:05 | Inpatient (IN) | payer OTHER, MEDICAID ==
[~2025-01-14] VITALS: Ht 152.4 cm; Wt 87.0 kg
[~2025-01-14 10:05] MED LIST changes: -ADENOSINE 71 MG in GIVE UN-DILUTED 0 ML IV ONE; -ADENOSINE 90 MG/30 ML INJ IV ONE
--- NOTE | 2025-01-14 10:35 | ED.PDOC ---
GI ASSESSMENT HPI Comments HPI: This is a 59 year old female presenting to the ED with chief complaint of abdominal pain. Patient reports that she has been experiencing LLQ abdominal pain for the past week, but worsened this morning with associated nausea. Patient denies any vomiting, diarrhea, fever, chills, dysuria, flank pain, or bloody stools. Initial Vitals BP: 142/49 HR: 71 RR: 16 O2 Sat: 98% Temp: 97.6F Past Medical history: DM, HTN, HLD, Ovarian Cancer, CHF, Depression, Anxiety Past Surgical history: Cholecystectomy, Hysterectomy, Right Lumpectomy Social History: Denies smoking, ETOH, and drug use. Allergies: Morphine, Tramadol HPI: Poor Historian. REVIEW OF SYSTEMS: CONSTITUTIONAL: Denies acute: fever, diaphoresis, chills, generalized weakness. HEAD: Denies acute: headache, photophobia Eyes: Denies acute: Double vision, vision loss, eye pain, eye discharge. EARS: Denies acute: tinnitus, hearing loss, ear discharge, ear pain, THROAT: Denies acute: sore throat, swelling, difficulty swallowing , pain with swallowing, change in voice. NECK: Denies acute: neck pain, neck swelling, stiff neck. HEART: Denies acute : chest pain, palpitations, LUNGS: Denies acute: SOB, wheezing, cough, hemoptysis ABDOMEN: Denies acute: Vomiting, diarrhea, melena , hematemesis, hematochezia SKIN: Denies acute: rash, redness, lesions, itchiness. EXTREMITIES: Denies acute: calf pain, numbness, tingling, weakness, denies pain in extremity. Denies acute: Low back pain. Neuro: Denies acute: focal neurological deficit, motor or sensory focal neurological deficit, tremors, seizure like activity, confusion, dizziness, change in mental status, loss of bowel or bladder function, cauda equina like symptoms. : Denies acute: dysuria, hematuria, flank pain, increase in urinary frequency. PSYCH: Denies acute: hallucination, suicidal ideation, homicidal ideation. FEMALE: Denies acute: abnormal vaginal bleeding, foul odor, unusual discharge. PHYSICAL EXAM: General: ----mild to moderate---acute distress, awake and alert. Head: normocephalic, atraumatic. Neck: supple, trachea is midline, no swelling. Throat: Normal phonation. Eyes:, no erythema, no purulent discharge, no proptosis, no icterus. Heart: regular rate, regular rhythm, no significant murmur appreciated. Lungs: no apparent respiratory distress, Able to speak in full sentences. No wheezing, no rhonchi, no crackles. No stridors Clear to auscultation bilaterally. Abdomen: Left-sided abdominal tender to palpation, non distended, soft, no guarding, no rebound, + bowel sounds. Neuro: Awake, Alert, oriented to name, self, situation, follows commands GCS=15. Speech is normal. Skin: no petechia, no purpura, no cyanosis, non-pale, not jaundice. Lower extremities: --no - Pitting edema no deformity, no focal swelling, no calf TTP. Makes eye contact. moves all four extremities. Face: no apparent facial droop. ED COURSE: DISCLAIMER: This medical document was created using an electronic medical record system with voice recognition software and computerized dictation system. Although this document has been carefully reviewed, there might still be some phonetic and typographical errors. Occasional wrong-word or "sound-alike" substitutions may have occurred due to the inherent limitations of voice recognition software. These areas are purely typographical due to imperfections of the software programs and do not reflect any compromise in the patient's medical care. Please read the chart carefully and recognize, using context, where these substitutions have occurred. Chief Complaint: Abdominal Pain Time Seen by MD: 10:32 Primary Care Provider: NONE Reviewed Notes: Nurses Notes, Medications, Allergies Allergies: Coded Allergies: Avocado (Verified Allergy, Unknown, 09/04/23) Morphine (Verified Allergy, Unknown, 09/04/23) Tramadol (Verified Allergy, Unknown, 09/04/23) Home Meds Active Scripts Polyethylene Glycol 3350 (Miralax) 17 Gm Pow, 17 GM PO DAILY for 30 Days, #30 DOSE Prov:LATISHA SANZ MD 05/12/24 Reported Medications Gabapentin (Gabapentin) 600 Mg Tab, 600 MG PO BID for 30 Days, MG 05/11/24 Metformin HCl (Metformin Hydrochloride) 1,000 Mg Tab, 1 TAB PO BID for DIABETES HOLD FOR 2 DAYS - MAY RESUME ON SATURDAY MORNING 09/07/23 09/05/23 Enalapril Maleate (VASOTEC TABLET) 2.5 Mg Tb, 1 MG PO DAILY for HYPERTENSION 09/04/23 Aspirin (Aspir-Low) 81 Mg Tab, 1 TAB PO DAILY for HEART ATTACK PREVENTION 09/04/23 Semaglutide (Ozempic) 2 Mg/3 Ml Inj, 1 MG SC QWEEKLY for DIABETES ON Saturday09/04/23 Cholecalciferol (VITAMIN D3) 2,000 Unit Tab, 1 TAB PO DAILY for SUPPLEMENT 09/04/23 Losartan Potassium (Losartan Potassium) 50 Mg Tab, 1 TAB PO DAILY for HYPE RTENSION 09/04/23 Insulin Glargine (Basaglar Kwikpen) 100 Unit/Ml Inj, UNITS SC HS PRN for PER DIABETIC SLIDING SCALE 09/04/23 Furosemide (Lasix) 20 Mg Tb, 1 TAB PO DAILY for EDEMA 09/04/23 Atorvastatin Calcium (ATORVASTATIN CALCIUM) 40 Mg Tab, 1 TAB PO HS for HIGH CHOLESTEROL 01/02/17 Information Source: Patient Mode of Arrival: Ambulatory Was a procedure done? Was a procedure done?: No X-Ray, Labs, Meds, VS Vital Signs Date Time Temp Pulse Resp B/P (MAP) Pulse Ox O2 Delivery O2 Flow Rate FiO2 01/14/25 10:25 97.6 71 16 142/49 (80) 98 97.6 Lab Test 01/14/25 10:45 Range/Units White Blood Count 11.8 H 4.4-10.8 10^3/uL Red Blood Count 4.38 4.0-5.20 10^6/uL Hemoglobin 12.8 12.2-16.2 g/dL Hematocrit 39.1 36.0-46.0 % Mean Corpuscular Volume 89.2 80.0-100.0 fL Mean Corpuscular Hemoglobin 29.3 28.0-32.0 pg Mean Corpuscular Hemoglobin Concent 32.8 32.0-36.0 g/dL Red Cell Distribution Width 14.0 11.8-14.3 % Platelet Count 241 140-450 10^3/uL Mean Platelet Volume 7.8 6.9-10.8 fL Neutrophils (%) (Auto) 81.4 H 37.0-80.0 % Lymphocytes (%) (Auto) 11.9 10.0-50.0 % Monocytes (%) (Auto) 4.6 0.0-12.0 % Eosinophils (%) (Auto) 1.4 0.0-7.0 % Basophils (%) (Auto) 0.7 0.0-2.0 % Neutrophils # (Auto) 9.6 H 1.6-8.6 10 ^3/uL Lymphocytes # (Auto) 1.4 0.4-5.4 10 ^3/uL Monocytes # (Auto) 0.5 0-1.3 10 ^3/uL Eosinophils # (Auto) 0.2 0-0.8 10 ^3/uL Basophils # (Auto) 0.1 0-0.2 10 ^3/uL Nucleated Red Blood Cells 0.0 % Sodium Level 140 136-145 mmol/L Potassium Level 4.7 3.5-5.1 mmol/L Chloride Level 105 98-107 mmol/L Carbon Dioxide Level 27 20-31 mmol/L Anion Gap 8 5-15 Blood Urea Nitrogen 29 H 9-23 mg/dL Creatinine 1.30 H 0.550-1.02 mg/dL Glomerular Filtration Rate Calc 47 >90 mL/min BUN/Creatinine Ratio 22.3 H 10.0-20.0 Serum Glucose 323 H 74-106 mg/dL Lactic Acid Level 2.3 *H 0.4-2.0 mmol/L Calcium Level 10.1 8.7-10.4 mg/dL Total Bilirubin 0.4 0.2-1.0 mg/dL Aspartate Amino Transferase (AST) 14 13-40 U/L Alanine Aminotransferase (ALT) 11 7-40 U/L Alkaline Phosphatase 129 H 46-116 U/L Troponin I High Sensitivity < 3 L </=34 ng/L Total Protein 6.8 5.7-8.2 g/dL Albumin 4.0 3.2-4.8 g/dL Lipase 55 H 12-53 U/L Time of 1ST Reevaluation: 11:31 Reevaluation 1ST: Unchanged Patient Education/Counseling: Diagnosis, Treatment Family Education/Counseling: No Family Present Departure 1 Departure Time of Disposition: 12:20 Impression: Primary Impression: Abdominal wall cellulitis Additional Impressions: Elevated lactic acid level Abdominal pain Disposition: 09 ADMITTED INPATIENT Admit to: Tele Condition: Guarded Discharged With: Self Critical Care Note Critical Care Time?: No I personally scribed for ANDREWS AVALOS DO ([email or web address]) on 01/14/25 at 10:35. Electronically submitted by Mike Dyson ([email or web address]). ANDREWS AVALOS DO Jan 14, 2025 10:35
[2025-01-14 11:09] LABS: Hematocrit 39.1 % (36.0-46.0); Hemoglobin 12.8 g/dL (12.2-16.2); Mean Corpuscular Hemoglobin 29.3 pg (28.0-32.0); Mean Corpuscular Volume 89.2 fL (80.0-100.0); Nucleated Red Blood Cells % 0.0 %
--- NOTE | 2025-01-14 11:28 | DVH ---
Exam: CT CT AB PEL WO CON-NO ORAL OR IV History: L abd pain Comparison Study: CT ABD PELVIS WO CONTRAST on DOS: 03/01/22 Technique: Multidetector spiral CT of the abdomen was performed from lung bases to pubic symphysis. Imaging was performed without IV contrast. Axial, coronal and sagittal multiplanar reformats were ob tained from the axial data set by the technologist. Radiation Dose : 1. Abdomen/Pelvis: CTDIvol 25 mGy, DLP 1226 mGy*cm. Findings: Evaluation of solid organs is limited due to lack of intravenous contrast use. Lung Bases: No acute or significant lung base finding. Normal heart size. No pleural or pericardial effusion. Liver: The liver is normal in size. No focal lesions. Gallbladder and Biliary Tree: Gallbladder is surgically absent. Spleen: Unremarkable Pancreas: The pancreas is grossly normal in appearance. Adrenal Glands: Unremarkable Kidneys: Kidneys are grossly normal without calculi or hydronephrosis. Bladder: Grossly unremarkable for degree of distention. Bowel: The stomach is grossly normal in appearance. Small bowel and colon are normal in caliber and d istribution. The appendix is not visualized; however, no secondary findings of acute appendicitis id entified. Ascites: Absent Lymphadenopathy: No mesenteric, retroperitoneal or periportal lymphadenopathy. Abdominal Wall and Mesentery: Superficial fat stranding and skin thickening in the lower midline ante rior abdomen which may reflect cellulitis. No underlying abscess identified. Vasculature: The visualized abdominal aorta is normal in size and caliber. Evaluation of abdominal a nd pelvic vessels is limited due to lack of intravenous contrast. Pelvic Organs: Unremarkable Musculoskeletal: No aggressive focal bony lesions, acute fractures or dislocation. Moderate degenerat paul changes throughout the lumbar spine IMPRESSION: 1. Superficial fat stranding and skin thickening in the lower midline anterior abdomen which may refl ect cellulitis. No underlying abscess identified Radiation optimization: All CT scans at this facility use at least one of these dose optimization alicia hniques: automated exposure control mA and/or kV adjustment per patient size (includes targeted exam s where dose is matched to clinical indication) or iterative reconstruction.
[2025-01-14 11:29] LABS: Alanine Aminotransferase 11 U/L (7-40); Albumin 4.0 g/dL (3.2-4.8); Anion Gap 8 (5-15); BUN/Creatinine Ratio 22.3 (10.0-20.0); Calcium 10.1 mg/dL (8.7-10.4); Carbon Dioxide 27 mmol/L (20-31); Chloride 105 mmol/L (98-107); Potassium 4.7 mmol/L (3.5-5.1); Sodium 140 mmol/L (136-145); Total Protein 6.8 g/dL (5.7-8.2)
[2025-01-14 11:30] LABS: Bilirubin, Total 0.4 mg/dL (0.2-1.0)
[2025-01-14 11:31] LABS: Alkaline Phosphatase 129 U/L (46-116); Blood Urea Nitrogen 29 mg/dL (9-23); Glucose 323 mg/dL (74-106)
[2025-01-14 11:34] LABS: Lactic Acid w/Reflex 2.3 mmol/L (0.4-2.0)
[2025-01-14 11:53] LABS: Lipase 55 U/L (12-53)
[2025-01-14 13:11] LABS: Urine Budding Yeast MODERATE /hpf (None Seen); Urine Protein, UAD TRACE (Negative)
[2025-01-14] MEDS: PIPERACILLIN-TAZOB 3.375GM 100 ML IV ONE (13:14)
[2025-01-14] MEDS: HYDROcodone-ACET 5/325MG TAB PO ONE (13:56)
[2025-01-14] MEDS ORDERED: ONDANSETRON HCL 4 MG/2 ML VIAL IV PRN (17:00)
[2025-01-14] MEDS ORDERED: ACETAMINOPHEN 325 MG TAB PO PRN (17:00)
[2025-01-14] MEDS ORDERED: DEXTROSE (50%) 50ML SYRG IV PRN (17:00)
[2025-01-14] MEDS ORDERED: HYDROcodone-ACET 5/325MG TAB PO PRN (17:00)
[2025-01-14] MEDS: ACCU-CHEK COMFORT CURVE STRIP VI SCH (17:00)
[2025-01-14] MEDS ORDERED: OMEP1CAP70 PO (17:09)
[2025-01-14] MEDS ORDERED: ALEN70TA74 PO (17:09)
[2025-01-14] MEDS ORDERED: CHOL20002 PO (17:09)
[2025-01-14] MEDS ORDERED: HYDR25TA5 PO (17:09)
[2025-01-14] MEDS ORDERED: DILT60TA2 PO (17:09)
[2025-01-14] MEDS ORDERED: OMEG-86 PO (17:09)
[2025-01-14] MEDS ORDERED: PATIENTS OWN MEDICATION (Alendronate Sodium 1 TAB) PO SCH (17:15)
--- NOTE | 2025-01-14 17:21 | DVHHP2 ---
History of Present Illness Reason for Visit: Abdominal pain History of Present Illness Salima Hanks is a 59-year-old female with past medical history of hypertension, hyperlipidemia, diabetes, CHF, ovarian cancer, depression, anxiety, cholecystectomy, hysterectomy, and right lumpectomy who presents to the ED with abdominal pain and left-sided flank pain. She states the pain is 7/10 aching and constant. She also endorses that she is compliant with her medications. She denies any drug use, tobacco use, or alcohol use. Patient denies any recent trauma or injury, recent sick contacts, recent travels, recent ingestion of spoiled food, chest pain, shortness of breath, fever, chills, lightheadedness, weakness, dizziness, nausea, vomiting, or diarrhea. Cardiovascular: CHF, HTN, hyperipidemia Endocrine: Diabetes Past Medical History Ovarian cancer Depression Anxiety Past Surgical History: Cholecystectomy, Hysterectomy, Other (Right lumpectomy) Family History: DM, Hyperlipidemia, Hypertension, Other (Mom and dad with diabetes, hypertension, and hyperlipidemia) Smoke: No ALCOHOL: none Drugs: None Lives: with Family Domestic Violence: Neg Review of Systems Gastrointestinal: Abdominal Pain Allergies: Coded Allergies: Avocado (Verified Allergy, Unknown, 09/04/23) Morphine (Verified Allergy, Unknown, 09/04/23) Tramadol (Verified Allergy, Unknown, 09/04/23) Medications Current Medications Medications Dose Ordered Sig/Jayjay Route Start Time Stop Time Status Last Admin Dose Admin Piperacillin Sod/ Tazobactam Sod 100 ml @ 25 mls/hr Q8HR IV 01/14/25 22:00 UNV Diagnostic Test (Pha) 1 strip ACHS 01/14/25 17:00 UNV Insulin Human Regular ACHS SC 01/14/25 17:00 UNV Dextrose 50 ml UD PRN IV 01/14/25 17:00 UNV Acetaminophen/ Hydrocodone Bitart 1 tab Q4HP PRN PO 01/14/25 17:00 UNV Ondansetron HCl 4 mg Q4HP PRN IV 01/14/25 17:00 UNV Acetaminophen 650 mg Q6HP PRN PO 01/14/25 17:00 UNV Aspirin 81 mg DAILY PO 01/15/25 10:00 UNV Enalapril Maleate 1 mg DAILY PO 01/15/25 10:00 UNV Losartan Potassium 50 mg DAILY PO 01/15/25 10:00 UNV Patient Own Medication 1 tab HS PO 01/14/25 22:00 UNV Patient Own Medication 1 tab DAILY PO 01/15/25 10:00 UNV Patient Own Medication 600 mg BID PO 01/14/25 22:00 UNV Hydrochlorothiazide 25 mg BID PO 01/14/25 22:00 UNV Patient Own Medication 1 tab QWEEKLY PO 01/14/25 17:15 UNV Patient Own Medication 1 cap BID PO 01/14/25 22:00 UNV Patient Own Medication 1 cap DAILY PO 01/15/25 10:00 UNV Exam Vital Signs Vital Signs Date Time Temp Pulse Resp B/P (MAP) Pulse Ox O2 Delivery O2 Flow Rate FiO2 01/14/25 15:49 97.6 61 18 120/58 (78) 96 97.6 01/14/25 13:01 Room Air General Appearance: Alert, Oriented X3, Cooperative, No acute distress HEENT: Atraumatic, PERRLA, EOMI, Mucous membr. moist/pink Respiratory: Clear to auscultation, Normal air movement Cardiovascular: Regular rate, Normal S1, Normal S2 Abdominal: Normal bowel sounds, Soft Extremities: No clubbing, No cyanosis, No edema, Normal pulses Skin: No significant lesion Neuro: Normal gait, Normal speech, Strength at 5/5 X4 ext, Normal tone, Sensation intact Psych/Mental Status: Mental status NL, Mood NL Labs/Xrays Labs Test 01/14/25 12:46 01/14/25 12:45 01/14/25 10:45 Range/Units Lactic Acid Level 1.4 0.4-2.0 mmol/L Urine Color Light-yellow Yellow Urine Clarity Clear Clear Urine pH 6.0 5.0-9.0 Urine Specific [place] 1.024 1.001-1.035 Urine Protein Trace H Negative Urine Ketones Negative Negative Urine Blood Negative Negative /uL Urine Nitrite Negative Negative Urine Bilirubin Negative Negative Urine Urobilinogen Normal Negative mg/dL Urine Leukocyte Esterase Negative Negative /uL Urine RBC 1 0 - 4 /hpf Urine Microscopic WBC 4 0-5 /HPF Urine Squamous Epithelial Cells Few <5 /hpf Urine Bacteria Few H None Seen /hpf Urine Yeast (Budding) Moderate None Seen /hpf Urine Glucose 4+ H Normal mg/dL White Blood Count 11.8 H 4.4-10.8 10^3/uL Red Blood Count 4.38 4.0-5.20 10^6/uL Hemoglobin 12.8 12.2-16.2 g/dL Hematocrit 39.1 36.0-46.0 % Mean Corpuscular Volume 89.2 80.0-100.0 fL Mean Corpuscular Hemoglobin 29.3 28.0-32.0 pg Mean Corpuscular Hemoglobin Concent 32.8 32.0-36.0 g/dL Red Cell Distribution Width 14.0 11.8-14.3 % Platelet Count 241 140-450 10^3/uL Mean Platelet Volume 7.8 6.9-10.8 fL Neutrophils (%) (Auto) 81.4 H 37.0-80.0 % Lymphocytes (%) (Auto) 11.9 10.0-50.0 % Monocytes (%) (Auto) 4.6 0.0-12.0 % Eosinophils (%) (Auto) 1.4 0.0-7.0 % Basophils (%) (Auto) 0.7 0.0-2.0 % Neutrophils # (Auto) 9.6 H 1.6-8.6 10 ^3/uL Lymphocytes # (Auto) 1.4 0.4-5.4 10 ^3/uL Monocytes # (Auto) 0.5 0-1.3 10 ^3/uL Eosinophils # (Auto) 0.2 0-0.8 10 ^3/uL Basophils # (Auto) 0.1 0-0.2 10 ^3/uL Nucleated Red Blood Cells 0.0 % Sodium Level 140 136-145 mmol/L Potassium Level 4.7 3.5-5.1 mmol/L Chloride Level 105 98-107 mmol/L Carbon Dioxide Level 27 20-31 mmol/L Anion Gap 8 5-15 Blood Urea Nitrogen 29 H 9-23 mg/dL Creatinine 1.30 H 0.550-1.02 mg/dL Glomerular Filtration Rate Calc 47 >90 mL/min BUN/Creatinine Ratio 22.3 H 10.0-20.0 Serum Glucose 323 H 74-106 mg/dL Calcium Level 10.1 8.7-10.4 mg/dL Total Bilirubin 0.4 0.2-1.0 mg/dL Aspartate Amino Transferase (AST) 14 13-40 U/L Alanine Aminotransferase (ALT) 11 7-40 U/L Alkaline Phosphatase 129 H 46-116 U/L Troponin I High Sensitivity < 3 L </=34 ng/L Total Protein 6.8 5.7-8.2 g/dL Albumin 4.0 3.2-4.8 g/dL Lipase 55 H 12-53 U/L Exam: CT CT AB PEL WO CON-NO ORAL OR IV History: L abd pain Comparison Study: CT ABD PELVIS WO CONTRAST on DOS: 03/01/22 Technique: Multidetector spiral CT of the abdomen was performed from lung bases to pubic symphysis. Imaging was performed without IV contrast. Axial, coronal and sagittal multiplanar reformats were obtained from the axial data set by the technologist. Radiation Dose : 1. Abdomen/Pelvis: CTDIvol 25 mGy, DLP 1226 mGy*cm. Findings: Evaluation of solid organs is limited due to lack of intravenous contrast use. Lung Bases: No acute or significant lung base finding. Normal heart size. No pleural or pericardial effusion. Liver: The liver is normal in size. No focal lesions. Gallbladder and Biliary Tree: Gallbladder is surgically absent. Spleen: Unremarkable Pancreas: The pancreas is grossly normal in appearance. Adrenal Glands: Unremarkable Kidneys: Kidneys are grossly normal without calculi or hydronephrosis. Bladder: Grossly unremarkable for degree of distention. Bowel: The stomach is grossly normal in appearance. Small bowel and colon are normal in caliber and distribution. The appendix is not visualized; however, no secondary findings of acute appendicitis identified. Ascites: Absent Lymphadenopathy: No mesenteric, retroperitoneal or periportal lymphadenopathy. Abdominal Wall and Mesentery: Superficial fat stranding and skin thickening in the lower midline anterior abdomen which may reflect cellulitis. No underlying abscess identified. Vasculature: The visualized abdominal aorta is normal in size and caliber. Evaluation of abdominal and pelvic vessels is limited due to lack of intravenous contrast. Pelvic Organs: Unremarkable Musculoskeletal: No aggressive focal bony lesions, acute fractures or dislocation. Moderate degenerative changes throughout the lumbar spine IMPRESSION: 1. Superficial fat stranding and skin thickening in the lower midline anterior abdomen which may reflect cellulitis. No underlying abscess identified SEPSIS Sepsis Screen Date sepsis recognized/suspect: Jan 14, 2025 Time Sepsis recognized/suspect: 1024 Recent Procedure: No On Antibiotic Therapy: No Respiratory Rate >20: No Heart Rate >90: No Temp<36 C (96.8 F) or >38.3 C: No SBP <90 or MAP <65 mmHG: No New Acute Mental Status Change: No Is the patient on CPAP, BIPAP,: No IV fluid challenge completed?: No Physician Orders Head Screen Worker (01/14/25 ) Ct Ab Pel Wo Con-No Oral Or Iv (01/14/25 10:32) Electrocardigram (01/14/25 10:32) Kidney (01/14/25 16:57) Piperacillin-Tazob 3.375gm (Zosyn 3.375g (01/14/25 22:00) Glucose Blood (Accu-Chek Comfort Curve T (01/14/25 17:00) Insulin R (Human) (Insulin R) (01/14/25 17:00) Dextrose 50% Syringe (01/14/25 17:00) Hemoglobin A1c (01/14/25 16:57) Admit (01/14/25 16:57) Allergies (01/14/25 16:57) Code Status (01/14/25 16:57) Hydrocodone-Acet 5/325mg Tab ([place] (01/14/25 17:00) Ondansetron Hcl (Zofran) (01/14/25 17:00) Complete Blood Count (01/15/25 04:00) Comprehensive Metabolic Panel (01/15/25 04:00) Cardiac Diet-2gna,Lofat,Lochol (01/14/25 Dinner) Acetaminophen Tablet (Tylenol Tablet) (01/14/25 17:00) Sequential Compression Device (01/14/25 ) Aspirin Tablet (01/15/25 10:00) Enalapril Tablet (Vasotec Tablet) (01/15/25 10:00) Losartan Tablet (Cozaar Tablet) (01/15/25 10:00) (Nf) Atorvastatin Calcium (01/14/25 22:00) (Nf) Cholecalciferol (Vitamin D3) (01/15/25 10:00) (Nf) Gabapentin (01/14/25 22:00) Hydrochlorothiazide Tablet (Hydrochlorot (01/14/25 22:00) (Nf) Alendronate Sodium (01/14/25 17:15) (Nf) [id number] Ethyl Esters (01/14/25 22:00) (Nf) Omeprazole (Omeprazole Dr) (01/15/25 10:00) Vital Signs Date Time Temp Pulse Resp B/P (MAP) Pulse Ox O2 Delivery O2 Flow Rate FiO2 01/14/25 15:49 97.6 61 18 120/58 (78) 96 97.6 01/14/25 13:01 65 16 95 Room Air 01/14/25 13:01 98.9 65 16 147/59 (88) 95 98.9 01/14/25 10: 97.6 71 16 142/49 (80) 98 97.6 Laboratory Tests Test 01/14/25 10:45 01/14/25 12:46 Lactic Acid Level 2.3 mmol/L (0.4-2.0) *H 1.4 mmol/L (0.4-2.0) White Blood Count 11.8 10^3/uL (4.4-10.8) H Medications Medications Dose Ordered Sig/Jayjay Route Start Time Stop Time Status Last Admin Dose Admin Acetaminophen/ Hydrocodone Bitart 1 tab ONCE ONCE PO 01/14/25 13:45 01/14/25 13:46 DC 01/14/25 13:56 1 TAB Piperacillin Sod/ Tazobactam Sod 100 ml @ 100 mls/hr ONCE ONCE IV 01/14/25 12:30 01/14/25 13:29 DC 01/14/25 13:14 100 MLS/HR Assessment/Plan Assessment/Plan Assessment Intractable abdominal pain with left-sided flank pain Hyperlipidemia Leukocytosis likely due to possible abdominal cellulitis HENIR likely due to heart failure Hyperglycemia with diabetes type 2 Lactic acidosis rule out sepsis Obesity History of hypertension History of hyperlipidemia History of CHF History of ovarian cancer History of depression History of anxiety History of cholecystectomy History of hysterectomy History of right lumpectomy Plan Admit to [facility] IV Antibiotics-Zosyn Antiemetics Pain management EKG CT abdomen and pelvis noted Troponin Lipase level Lactic level Hemoglobin A1c ISS and Accu-Cheks Kidney ultrasound ordered Diet Home medications reconciled DVT prophylaxis-not indicated patient ambulating PUD prophylaxis-not indicated no history of GERD or GI bleed Discussed plan of care with patient and nurse Counseled patient on lifestyle modifications, diet, and exercise [id number] Preventive counseling healthy eating habits, physical activity, and regular checkups Plan discussed with: Patient My Orders Orders - DENNYS GOLDSTEIN SENIOR DATA ANALYST Procedure Category Date Status Time Kidney US 01/14/25 Logged 16:57 Piperacillin-Tazob PHA 01/14/25 Logged 3.375gm (Zosyn 3.375g 22:00 Glucose Blood PHA 01/14/25 Logged (Accu-Chek Comfort 17:00 Insulin R (Human) PHA 01/14/25 Logged (Insulin R) 17:00 Dextrose 50% Syringe PHA 01/14/25 Logged 17:00 Hemoglobin A1c LAB 01/14/25 Logged 16:57 Admit ADMIT 01/14/25 Transmitted 16:57 Allergies WILMA 01/14/25 In Process 16:57 Code Status CODE 01/14/25 Transmitted 16:57 Hydrocodone-Acet PHA 01/14/25 Logged 5/325mg Tab ([place] 17:00 Ondansetron Hcl PHA 01/14/25 Logged (Zofran) 17:00 Complete Blood Count LAB 01/15/25 Verified 04:00 Comprehensive LAB 01/15/25 Verified Metabolic Panel 04:00 Cardiac DIET 01/14/25 Transmitted Diet-2gna,Lofat,Lochol Dinner Acetaminophen Tablet PHA 01/14/25 Logged (Tylenol Tablet) 17:00 Sequential WILMA 01/14/25 In Process Compression Device Aspirin Tablet PHA 01/15/25 Logged 10:00 Enalapril Tablet PHA 01/15/25 Logged (Vasotec Tablet) 10:00 Losartan Tablet PHA 01/15/25 Logged (Cozaar Tablet) 10:00 (Nf) Atorvastatin PHA 01/14/25 Logged Calcium 22:00 (Nf) Cholecalciferol PHA 01/15/25 Logged (Vitamin D3) 10:00 (Nf) Gabapentin PHA 01/14/25 Logged 22:00 Hydrochlorothiazide PHA 01/14/25 Logged Tablet (Hydrochlorot 22:00 (Nf) Alendronate PHA 01/14/25 Logged Sodium 17:15 (Nf) Rclce-4-Cylg PHA 01/14/25 Logged Ethyl Esters 22:00 (Nf) Omeprazole PHA 01/15/25 Logged (Omeprazole Dr) 10:00 Date of Service: Jan 14, 2025 Billing Provider: DENNYS GOLDSTEIN Common Visit Codes: 50498-GTNALUM INP/OBS CARE (HIGH) Secondary Visit Codes: 87333-[id number] COUNSELING IND DENNYS GOLDSTEIN Jan 14, 2025 17:21
--- NOTE | 2025-01-14 17:34 | DVH ---
INDICATION: left sided kidney pain TECHNIQUE: Multiple real-time sonographic images of the kidneys and bladder were obtained. COMPARISON: CT abdomen and pelvis 01/14/2025 FINDINGS: The right kidney measures 10.3 cm in length, which is normal in size. There is normal echogenicity o f the right kidney. No hydronephrosis. Duplicated right renal collecting system. The left kidney measures 11.5 cm in length, which is normal in size. There is normal echogenicity of the left kidney. No hydronephrosis. 0.5 cm Nonobstructing left renal lower pole calculus. Mild wall thickening of the urinary bladder. Urinary bladder volume of 347 cc. IMPRESSION: Nonobstructing left renal lower pole calculus. No hydronephrosis bilaterally. Mild wall thickening of the urinary bladder which may be due to inadequate distention. Correlation w ith urinalysis is recommended to exclude cystitis. Urinary bladder volume of 347 cc.
[2025-01-14] MEDS: InsuLIN REG 1unit/0.01ml Soln (100units/ml) SC SCH (18:28)
[2025-01-14 18:46] VITALS: BP 137/62; PULSE 59; RESP 18; TEMP 97.4; O2SAT 95
[2025-01-14] MEDS ORDERED: GABAPENTIN 300 MG CAP PO SCH (22:00)
[2025-01-14] MEDS ORDERED: hydroCHLOROthiazide 25 MG TAB PO SCH (22:00)
[2025-01-14] MEDS ORDERED: PIPERACILLIN-TAZOB 3.375GM 100 ML IV SCH (22:00)
[2025-01-14] MEDS ORDERED: ATORVASTATIN 20 MG TAB PO SCH (22:00)
[2025-01-14] MEDS ORDERED: OMEGA ACID ETHYL ESTERS PO SCH (22:00)
[2025-01-15] MEDS ORDERED: PANTOPRAZOLE 40 MG TAB PO SCH (07:00)
[2025-01-15] MEDS ORDERED: CHOLECALCIFEROL (VITD3) 1,000UNIT=25mCg TAB PO SCH (10:00)
[2025-01-15] MEDS ORDERED: LOSARTAN POTASSIUM 50 MG TAB PO SCH (10:00)
[2025-01-15] MEDS ORDERED: ENALAPRIL MALEATE 2.5 MG TAB PO SCH (10:00)
== END 2025-01-14 22:22 | disposition left against medical advice (07) | DRG 872 ==
LOC: ER 10:05 → OVERFLOW 16:57
DX: A41.9 Sepsis, unspecified organism (principal); E87.20 Acidosis, unspecified; L03.311 Cellulitis of abdominal wall; N17.9 Acute kidney failure, unspecified; I50.9 Heart failure, unspecified; I11.0 Hypertensive heart disease with heart failure; Z68.37 Body mass index [BMI] 37.0-37.9, adult; E11.65 Type 2 diabetes mellitus with hyperglycemia; Z88.5 Allergy status to narcotic agent; E66.9 Obesity, unspecified; E78.5 Hyperlipidemia, unspecified; F41.9 Anxiety disorder, unspecified; Z91.018 Allergy to other foods; Z90.710 Acquired absence of both cervix and uterus; Z90.49 Acquired absence of other specified parts of digestive tract; Z85.43 Personal history of malignant neoplasm of ovary; Z83.3 Family history of diabetes mellitus; Z82.49 Family history of ischemic heart disease and other diseases of the circulatory system
CPT/HCPCS: 36415; 74176; 76775; 80053; 81001; 82962; 83036; 83605; 83690; 84484; 85025; 96365; 96372; G0378; J1815; J2543